=== PATIENT | female | born 1935 | race Caucasian/White ===

== ENCOUNTER 2023-07-02 08:57 | Inpatient (IN) | payer OTHER, SELFPAY ==
[2023-06-30] VITALS (9 sets, daily range): BP systolic 121–206; BP diastolic 80–95; BMI 17.5
[2023-06-30 14:33] LABS: % Basophils 0.5 % (0-2); % Eosinophils 1.2 % (0-6); % Immature Granulocytes 0.1 % (0-0.5); % Lymphocytes 27.9 % (20.5-51.1); % Monocytes 9.2 % (1.7-9.3); % Neutrophils 61.1 % (42.2-75.2); Absolute Eosinophils 0.1 10^3/uL (0-0.7); Absolute Monocytes 0.7 10^3/uL (0.1-0.6); Absolute Neutrophils 4.4 10^3/uL (1.4-6.5); Hematocrit 39.3 % (37.0-47.0); Mean Corp Hgb Conc. 35.6 g/dL (33.0-37.0); Mean Corpuscular Hgb 35.1 pg (27.0-31.0); Mean Corpuscular Volume 98.5 fL (81.0-99.0); Mean Platelet Volume 9.2 fL (7.4-10.4); Nucleated Red Blood Cells % 0 %; Platelet Count 217 10^3/uL (130-400); Red Blood Cell Count 3.99 10^6/uL (4.20-5.40); White Blood Cell Count 7.3 10^3/uL (4.8-10.8)
[2023-06-30 14:44] LABS: ALT (SGPT) 23 U/L (0-35); AST (SGOT) 32 U/L (14-36); Albumin 3.9 g/dl (3.5-5.0); Alkaline Phosphatase 118 U/L (38-126); Blood Urea Nitrogen 22 mg/dl (7-17); Calcium 9.3 mg/dl (8.4-10.2); Carbon Dioxide 21 mmol/L (22-30); Chloride 99 mmol/L (98-107); Glucose 116 mg/dl (70-99); Potassium 3.4 mmol/L (3.5-5.1); Sodium 133 mmol/L (135-145); Total Bilirubin 1.1 mg/dl (0.2-1.3); Total Protein 6.4 g/dl (6.3-8.2); eGFR 44.08
[2023-06-30 14:56] LABS: Troponin I < 0.012 ng/ml
--- NOTE | 2023-06-30 14:56 | ED.GENMED ---
History of Present Illness
General
Chief Complaint: Chest Problem
Source: patient
Exam Limitations: none
Time Seen by Provider: 06/30/23 14:32
Travel History
Have you had any contact with someone who has COVID-19?: No
Do you have any symptoms of coronavirus? Fever > 100 degrees, chills, cough, shortness of breath, sore throat, loss of taste or smell, muscle aches, or headache?: No
History of Present Illness
History of Present Illness:
87-year-old female presents complaining of burning in the chest starting yesterday. This is typically when she is eating. She denies actual vomiting. No fever. No shortness of breath. She denies any diaphoresis. No pain in between times of
eating. Pain does not radiate to the back or arms. She does have a history of esophageal obstruction but this feels different. She is on omeprazole for GERD. She has a history of atrial fibrillation but no longer on anticoagulant secondary to
bleeding.
Past History
Past History
ED Past Medical History: Arrthythmia (Atrial fib), Cancer (Basal cell), HTN, Hypercholesterolemia, NIDDM, [place], Other (Cardiomyopathy, abnormal LFTs, vent dependent respiratory failure, aspiration pneumonia, Sweet syndrome) and Other (Epistaxis,
thrombocytopenia, anemia)
ED Past Surgical History: Cardiac (Cardioversion 2010, JONES) and Other (Mohs surgery right face, bilateral cataract extractions)
Social History
Tobacco: Former smoker
Alcohol: Daily (wine 1 glass)
Personal:
Living: with family
Employment: Retired
Family History
Family History: Other (Reviewed and noncontributory)
Phy Exam
Physical Exam
Physical Exam:
General: Well-appearing female no acute respiratory distress HEENT: Normocephalic atraumatic neck is supple mucosa moist
Heart: Regular rate and rhythm no murmurs
Lungs: Clear no wheeze or rales
Abdomen is soft mild epigastric tenderness no guarding rebound normal bowel sounds
Extremities: No cyanosis or edema
skin: warm, no rashes
Course
Orders/Labs/Results
Orders:
Orders
06/30/23 14:03
EKG [Electrocardiogram (*1)] Urgent
Reason for Study: Chest Pain
EKG- Treatment ONCE
06/30/23 14:26
Complete Blood Count/With Diff Urgent
Comprehensive Metabolic Panel Urgent
Lipase Urgent
Comment: ADD ON
Troponin I Urgent
06/30/23 14:46
CR Chest - 2 Views Urgent
Comment:
Reason For Exam: chest pain
06/30/23 15:01
Add On- LAB Urgent
Tests Added?: lipase
06/30/23 16:18
HydrALAZINE [Apresoline] 5 mg IV NOW STA
Abnormal Lab Results
06/30/23
14:26
RBC 3.99 L 10^6/uL
(4.20-5.40)
MCH 35.1 H pg
(27.0-31.0)
Absolute Monos (auto) 0.7 H 10^3/uL
(0.1-0.6)
Sodium 133 L mmol/L
(135-145)
Potassium 3.4 L mmol/L
(3.5-5.1)
Carbon Dioxide 21 L mmol/L
(22-30)
BUN 22 H mg/dl
(7-17)
Creatinine 1.2 H mg/dL
(0.6-1.0)
Glucose 116 H mg/dl
(70-99)
06/30/23 14:26
06/30/23 14:26
Vital Signs
Initial and Last Documented VS:
Initial Vital Signs
Temp Pulse Resp BP Pulse Ox
98.2 F 77 16 163/90 98
06/30/23 14:00 06/30/23 14:00 06/30/23 14:00 06/30/23 14:00 06/30/23 14:00
Last Documented Vital Signs
Temp Pulse Resp BP Pulse Ox
98.2 F 77 16 176/93 98
06/30/23 14:00 06/30/23 17:00 06/30/23 17:00 06/30/23 17:00 06/30/23 16:45
MDM/Problems Addressed
Differential Diagnosis Includes:
Burning in chest and abdomen. Differential could include GERD, esophagitis vs obstruction. Will check EKG and troponin for ACS. Will check chest x-ray. Lipase pending to evaluate for pancreatitis
*Critical Care Note
Total Time (30-74mins, 75-104mins- exclusive of procedures): Not Applicable
Update Note
Update Note:
Cardiac workup negative chest x-ray negative. Patient was given chance to eat including applesauce brian crackers and water. Patient exhibits significant dysphagia. She belches frequently and has trouble getting even just water down. She is not
unable to tolerate her own secretions however. She is losing weight. She has lost 10 pounds in the last several months and has acute kidney injury. Discussed findings with GI. No need for urgent endoscopy tonight but will keep in hospital for
further evaluation with
ED Attending Note
-
Portions of this chart may have been created with voice recognition software.� Occasional wrong word or��sound alike� substitutions may have occurred due to the inherent limitations of voice recognition software.
Discharge Plan
Departure
Patient Disposition: Admit
Date of Disposition: 06/30/23
Time of Disposition: 17:51
Admit to: Med/Surg
Presentation/result/management discussed w/ accepting MD/DO: Hospitalist
Discharge Problem:
Dysphagia
Prescriptions:
No Action
losartan 50 MG tablet
50 mg PO DAILY
metoprolol succinate 50 MG tablet extended release 24 hr
50 mg PO BID
aspirin [Ecotrin Low Strength] 81 MG tablet,delayed release (DR/EC)
81 mg PO DAILY
multivitamin 1 EACH capsule
1 ea PO DAILY
cholecalciferol (vitamin D3) [Vitamin D3] 1,000 UNIT tablet
1,000 unit PO DAILY
dabigatran etexilate [Pradaxa] 150 MG capsule
150 mg PO BID
acetaminophen [Tylenol] 325 MG tablet
650 mg PO BID
prochlorperazine maleate 10 MG tablet
10 mg PO BID
amoxicillin 500 MG capsule
500 mg PO TID Qty: 15 0RF
acetaminophen-codeine 1 TABLET tablet
1 tab PO Q4HPRN PRN (Reason: Pain) Qty: 15 0RF
amlodipine 2.5 MG tablet
2.5 mg PO DAILY Qty: 20 1RF
famotidine 20 mg tablet
20 mg PO DAILY Qty: 14 0RF
Referrals:
Melissa Navarro PA-C [Family Provider] -
Interventions
Interventions:
*Risk Screen - Suicide Last Done: 06/30/23 14:00
*General Assessment Last Done: 06/30/23 14:00
*Neglect/Abuse Screening Last Done: 06/30/23 14:00
*ED COVID-19 Vaccine History Last Done: 06/30/23 14:27
ED- Cardiac Assessment Last Done: 06/30/23 14:27
ED- Pulmonary Assessment Last Done: 06/30/23 14:27
[2023-06-30 15:25] LABS: Lipase 170 U/L (23-300)
[2023-06-30] MEDS: APRESOLINE 5 MG IV (16:23)
--- NOTE | 2023-06-30 18:24 | HPS.HSE ---
Family Physician
-
Family Physician: Melissa Navarro
Chief Complaint
-
dysphagia
History of Present Illness
87-year-old female past medical history of atrial fibrillation not on anticoagulation, coronary artery disease, hypertension, hypercholesteremia, diabetes, basal cell carcinoma, aspiration pneumonia, GERD, food impaction, presenting with burning in
the chest yesterday along the esophagus after eating followed by an episode of vomiting and again later at dinner. She was able to swallow food and liquids but had pain during this. Pain was worse with liquids. She ate chicken wing on .
Patient states that she has been having ongoing acid reflux for the past year for which she takes omeprazole. Denies shortness of breath. She has chronic constipation and goes to bathroom 3 times a week. Her last bowel movement yesterday. She
has some vague fullness in the abdomen without any lashon pain.
She did not take her blood pressure medications this morning as her blood pressure was on the lower side.
Medical History
Past Medical History
Past Medical History: Reports Other (atrial fibrillation not on anticoagulation, coronary artery disease, hypertension, hypercholesteremia, diabetes, basal cell carcinoma, aspiration pneumonia, GERD, food impaction)
Past Surgical History: Reports Other ( Cardiac (Cardioversion 2010, JONES) and Other (Mohs surgery right face, bilateral cataract extractions))
Social History
Tobacco: Non-smoker
Alcohol: None
Drug: None
Family History
Family History: Not pertinent
Allergies / Home Medications
Allergies reflects when Allergies were last updated in [employer].
Home Medications with original date entered in [employer]
Allergy/Medication List:
Allergies
Allergy/AdvReac Type Severity Reaction Status Date / Time
levofloxacin [From Levaquin] Allergy Unknown Verified 06/30/23 14:00
Review of Systems
-
History Source: Patient
A 12 point ROS was completed and negative except as noted: Yes
Constitutional: Reports No Symptoms
EENT: Reports No Symptoms
Respiratory: Reports No Symptoms
Cardiac: Reports No Symptoms
Abdomen/GI: Reports No Symptoms
: Reports No Symptoms
Musculoskeletal: Reports No Symptoms
Skin: Reports No Symptoms
Neurological: Reports No Symptoms
Endocrine: Reports No Symptoms
Hematologic/Lymphatic: Reports No Symptoms
Psych: Reports No Symptoms
Physical Exam
Vital Signs
Vital Signs
Temp Pulse Resp BP Pulse Ox
98.2 F 77 16 176/93 98
06/30/23 14:00 06/30/23 17:00 06/30/23 17:00 06/30/23 17:00 06/30/23 16:45
Physical Exam
General: Well Developed, Well Nourished and No Apparent Distress
HEENT: NormoCephalic, Moist mucous membranes and Atraumatic
Respiratory: Clear
Cardiac: S1/S2 and Regular Rhythm; No Murmur or Rub
GI: Soft, Non Tender, Non Distended and Normal Bowel Sounds; No Organomegaly
Rectal: Deferred by Provider
Musculoskeletal: No Clubbing, No Cyanosis and No Edema
Skin: No Rash
Neuro: Nonfocal/grossly intact
Laboratory Results
-
06/30/23 14:26
06/30/23 14:26
Laboratory Results
Total Bilirubin 1.1 mg/dl (0.2-1.3) 06/30/23 14:26
AST 32 U/L (14-36) 06/30/23 14:26
ALT 23 U/L (0-35) 06/30/23 14:26
Alkaline Phosphatase 118 U/L (38-126) 06/30/23 14:26
Troponin I < 0.012 ng/ml 06/30/23 14:26
Lipase Cancelled 06/30/23 14:46
Data Reviewed
-
Lab Data: Labs Reviewed by me
Old Records: Reviewed
Impression/Plan
-
IMPRESSION:
PLAN:
# Dysphagia/epigastric discomfort concerning for recurrent esophageal food impaction
# History of GERD/food impaction
-N.p.o.
-Continue Protonix
-GI consulted
# Hypertensive urgency
-IV hydralazine given
-Continue hydralazine
# Acute kidney injury prerenal
-Gentle IV fluids
# Hypokalemia secondary to vomiting
- replete potassium
Paroxysmal atrial fibrillation
-Continue metoprolol
-Continue amiodarone
Coronary artery disease
-Continue aspirin
Hypercholesterolemia
-Continue statin
Type 2 diabetes
Basal cell carcinoma
History of aspiration pneumonia
Full code
DVT prophylaxis�SCDs
N.p.o.
--- NOTE | 2023-06-30 20:10 | PTCARENOTE ---
Received patient from ED via stretcher. Patient ambulated from stretcher to bed with minimal assistance. AAOx3, no current complaints of pain. Oriented patient to room and placed call doty within reach.
[2023-06-30] MEDS: NSS 1000 IV (20:18)
[2023-06-30] MEDS: APRESOLINE 5 MG PO (20:39)
[2023-06-30] MEDS: LIPITOR 10 MG PO (20:40)
[2023-06-30] MEDS: PACERONE 100 MG PO (20:41)
[2023-07-01 07:54] LABS: % Basophils 0.5 % (0-2); % Immature Granulocytes 0.2 % (0-0.5); % Lymphocytes 30.6 % (20.5-51.1); % Monocytes 11.9 % (1.7-9.3); % Neutrophils 53.8 % (42.2-75.2); Absolute Eosinophils 0.2 10^3/uL (0-0.7); Absolute Lymphocytes 1.8 10^3/uL (1.2-3.4); Absolute Monocytes 0.7 10^3/uL (0.1-0.6); Absolute Neutrophils 3.1 10^3/uL (1.4-6.5); Hematocrit 39.4 % (37.0-47.0); Hemoglobin 13.8 g/dL (12.0-16.0); Mean Corpuscular Hgb 34.9 pg (27.0-31.0); Mean Corpuscular Volume 99.7 fL (81.0-99.0); Mean Platelet Volume 9.1 fL (7.4-10.4); Nucleated Red Blood Cells % 0 %; Platelet Count 216 10^3/uL (130-400); Red Blood Cell Count 3.95 10^6/uL (4.20-5.40); Red Cell Dist. Width 11.7 % (11.5-14.5); White Blood Cell Count 5.7 10^3/uL (4.8-10.8)
[2023-07-01 07:55] VITALS: BP 177/98
--- NOTE | 2023-07-01 08:28 | CON.GI ---
Addendum entered and electronically signed by Rachel Landrum Do, MD 07/02/23 07:48:
I saw and examined the patient on 07/01 and this is delayed entry
The INSTRUMENTAL MUSICIAN's note was reviewed and I agree with the note.
Comment: She is an 87yo W with h/o HTN, CAD, afib and DM who was admitted for reflux and dysphagia to solids. She has had food impactions in the past. Her mother has similar issues. She does use omeprazole 20mg on baseline. She denies any
clear triggers. Exam VSS, tolerating secretions. NTTP, NABS. Labs reviewed
Impressions
- Solid food dysphagia with h/o esophageal impactions
Ddx includes tortuous esophagus, EoE or acid stricture
- Constipation
- DM
- HTN
- Afib
- HL
Recommendations
- C/w CLD
- NPO at [facility] for EGD with bx tomorrow 07/02
- Miralax daily
- PPI IV BID
Will follow with you
Original Note:
Consultation
-
Date/Time Consultation Requested: 06/30/23 @ 19:55
Date/Time Consultation Performed: 07/01/23 @ 08:15
Requesting Provider: Dr. Anderson
Performing Provider: BRADEN Dominguez; Dr. Rachel Chopra
Reason for Consultation: dysphagia, ?food impaction
Medical History
Chief Complaint / HPI
Chief Complaint: dysphagia
History of Present Illness:
The patient is an 87-year-old female with a past medical history significant for atrial fibrillation on anticoagulation, CAD, hypertension, hyperlipidemia, type 2 diabetes, GERD, dysphagia with history of food impaction, who presented to the
emergency room with complaints of odynophagia and worsening reflux, which we are being asked to evaluate her for. Upon review of prior records, the patient was seen in the hospital in 2020 and November 2022 with similar presentation. In November she
underwent EGD for food impaction which showed a large amount of food in the cricopharyngeus, in the upper third of the esophagus, middle third of the esophagus, and lower third of the esophagus which was removed. She was also noted to have a
significantly torturous esophagus. She was advised on a chopped and mechanical soft diet with outpatient GI follow-up, but she did not follow-up in the office. Today, the patient reports that she has had chronic problems with reflux. She notes
that she takes omeprazole 20 mg daily but of recent this has not been effective. She notes the last 3 days that she has had pain with swallowing despite use of her omeprazole. She notes that after a meal she will get immediate reflux and developed
significant burping. She denies any overt nausea or vomiting, but will have to regurgitate food at times. She denies any dysphagia, but does note she can feel the food going down. She notes after her endoscopy in November she did have some pain in
her esophagus with swallowing but this had resolved at that point in time. She reports that she does bring up mucus and small food particles at times as well after meals. She is unable to to identify certain triggers for the symptoms. She denies
any significant abdominal pain, weight loss, loss of appetite, fevers, chills, chest pain, or shortness of breath. She notes her last bowel movement was on Friday and does have chronic constipation going every 3 days or so. She does not use
laxatives regularly but was drinking a lot of prune juice which did help but this also worsened her reflux so she stopped drinking it. She reports taking Dulcolax tablet on Friday and Friday with good effect. She denies any melena or
hematochezia. She denies any recent use of antibiotics, steroids, NSAIDs, or alcohol. Family history significant for father had colon cancer and brother who had biliary cancer. She reports remote history of colonoscopy with history of polyps.
Prior EGDs as noted above. Routine labs on admission showed a sodium 133, potassium 3.4, BUN 22, creatinine 1.2, troponin negative x 1, lipase 170, hemoglobin 14.0, WBC 7.3, platelets 217,000, with normal LFTs. Chest x-ray showed no acute
findings. She was started on PPI, made n.p.o., admitted for further evaluation by GI.
Past Medical History
Past Medical History: Arrhythmias (Atrial fibrillation off anticoagulation, prior history of cardioversion), CAD, GERD, HTN, Hypercholesterolemia, NIDDM and Other (Dysphagia with history of food impaction, basal cell skin CA)
Past Surgical History: Other (Cataract surgery, Mohs procedure)
Social History
Tobacco: Former Smoker (Quit in her 40s)
Alcohol: None
Drug: None
Family History
Family History: Cancer (Father-colon cancer; brother-bile duct cancer)
Allergies / Home Medications
Allergy/AdvReac Type Severity Reaction Status Date / Time
levofloxacin [From Levaquin] Allergy Unknown Verified 06/30/23 14:00
Medication Instructions Recorded
acetaminophen 325 mg tablet 650 mg PO DAILYPRN PRN mild pain 06/30/23
(Tylenol)
amiodarone 100 mg tablet 100 mg PO DAILY@202906/30/23
aspirin 81 mg tablet,delayed 81 mg PO DAILY 06/30/23
release
atorvastatin 10 mg tablet 10 mg PO DAILY@202906/30/23
bisacodyl 5 mg tablet,delayed 10 mg PO HSPRN PRN constipation 06/30/23
release (Dulcolax (bisacodyl))
cholecalciferol (vitamin D3) 50 50 mcg PO DAILY 06/30/23
mcg (2,000 unit) tablet
hydralazine 10 mg tablet 5 mg PO DAILY@202906/30/23
hydralazine 10 mg tablet 5 mg PO DAILYPRN PRN blood pressure 06/30/23
omeprazole 20 mg capsule,delayed 20 mg PO QPM 06/30/23
release
Review of Systems
-
History Source: Patient
Constitutional: Reports No Symptoms
EENT: Reports No Symptoms
Respiratory: Reports No Symptoms
Cardiac: Reports No Symptoms
Abdomen/GI: Reports Constipated and Other (Odynophagia)
: Reports No Symptoms
Musculoskeletal: Reports No Symptoms
Skin: Reports No Symptoms
Neurological: Reports No Symptoms
Vital Signs
Temp Pulse Resp BP Pulse Ox
97.7 F 71 18 121/80 98
06/30/23 23:37 06/30/23 23:37 06/30/23 23:37 06/30/23 23:37 07/01/23 03:58
Physical Exam
Exam
General: Well Developed, Well Nourished, Comfortable and Other (Elderly appearing female in no significant distress)
HEENT: Normocephalic, Anicteric, Atraumatic and Other (No oral thrush)
Respiratory: Clear
Cardiac: S1/S2 and Regular Rhythm
Breast: Deferred by me
GI: Soft, Non Tender, Non Distended, Normal Bowel Sounds and Flat
Rectal: Deferred by Provider
Skin: Warm and Dry
Neuro: Awake, Alert and Oriented
Psych: Calm
Results
WBC 5.7 10^3/uL (4.8-10.8) 07/01/23 07:18
Hgb 13.8 g/dL (12.0-16.0) 07/01/23 07:18
Hct 39.4 % (37.0-47.0) 07/01/23 07:18
MCV 99.7 fL (81.0-99.0) H 07/01/23 07:18
Plt Count 216 10^3/uL (130-400) 07/01/23 07:18
Absolute Neuts (auto) 3.1 10^3/uL (1.4-6.5) 07/01/23 07:18
Sodium 133 mmol/L (135-145) L 06/30/23 14:26
Potassium 3.4 mmol/L (3.5-5.1) L 06/30/23 14:26
Chloride 99 mmol/L (98-107) 06/30/23 14:26
Carbon Dioxide 21 mmol/L (22-30) L 06/30/23 14:26
BUN 22 mg/dl (7-17) H 06/30/23 14:26
Creatinine 1.2 mg/dL (0.6-1.0) H 06/30/23 14:26
Calcium 9.3 mg/dl (8.4-10.2) 06/30/23 14:26
Total Bilirubin 1.1 mg/dl (0.2-1.3) 06/30/23 14:26
AST 32 U/L (14-36) 06/30/23 14:26
ALT 23 U/L (0-35) 06/30/23 14:26
Alkaline Phosphatase 118 U/L (38-126) 06/30/23 14:26
Lipase Cancelled 06/30/23 14:46
Diagnostic Image Results:
06/30/23 CXR: No acute findings.
Prior GI Procedures:
EGD: 11/10/2022 Dr. Stroud: Large amount of Food at the cricopharyngeus, in the upper third of the esophagus, in the middle third of the esophagus and in the lower third of the esophagus. Removal was successful. Tortuous esophagus. Normal stomach.
Normal examined duodenum.
04/21/2021 Dr. Mattson: Food in the esophagus. Removal was successful. Normal stomach. Normal examined duodenum.
09/06/2011 Dr. Gamez: Normal esophagus. Normal examined duodenum. Gastric mucosal abnormality in the antrum characterized by erythema. Likely secondary to ASA and corticosteroids
Colonoscopy: 04/01/2012 Dr. Carmona: Non-thrombosed external hemorrhoids. One 10 mm hyperplastic polyp in the sigmoid colon. Resected and retrieved. Diverticulosis in the sigmoid colon and in the descending colon. Internal hemorrhoids.
Assessment / Plan
-
The patient is an 87-year-old female with a past medical history significant for atrial fibrillation on anticoagulation, CAD, hypertension, hyperlipidemia, type 2 diabetes, GERD, dysphagia with history of food impaction, who presented to the
emergency room with complaints of odynophagia and worsening reflux, which we are being asked to evaluate her for. She has a history of prior food impaction requiring EGD in 2020 and 2022 but no biopsies done and no follow-up in the office. She has
chronic GERD on PPI but this has not been managing her symptoms. No overt dysphagia but now with odynophagia and intermittent regurgitation of food. No anemia. Currently she is tolerating her secretions and is in no distress.
Problem list:
-odynophagia, ?dysphagia with regurgitation of food
-chronic GERD
-hx food impaction
-hypokalemia, improved
-chronic constipation
Other pertinent medical hx:
-Afib off AC
-CAD
-HTN
-HLD
-DM2
Recommendations:
-Etiology of current symptoms consistent with likely passed food impaction, possibly secondary to esophagitis v Schatzki ring v tortuous esophagus v other.
-Currently tolerating her secretions and not in distress.
-Will need EGD for further evaluation. To review timing with Dr. Chopra, today v tomorrow.
-Keep NPO for now
-Start BID PPI
-Avoid NSAID's
-GERD diet
-Will start on MiraLax 1 capful daily with hx of constipation once taking PO, likely to be contributing to her worsening reflux as well
-Will follow
Data Reviewed
-
Old Records: Reviewed
-
-
Thank you for consultation and allowing me to participate in the patient's care. Please call the inspector outside steam distribution GI physician during the after hours with any questions or concerns.
[2023-07-01 08:30] LABS: ALT (SGPT) 24 U/L (0-35); AST (SGOT) 34 U/L (14-36); Albumin 3.5 g/dl (3.5-5.0); Alkaline Phosphatase 118 U/L (38-126); Blood Urea Nitrogen 12 mg/dl (7-17); Calcium 8.4 mg/dl (8.4-10.2); Carbon Dioxide 23 mmol/L (22-30); Chloride 105 mmol/L (98-107); Estimated Creatinine Clearance 32 ml/min; Glucose 85 mg/dl (70-99); Potassium 3.8 mmol/L (3.5-5.1); Sodium 134 mmol/L (135-145); Total Protein 5.7 g/dl (6.3-8.2); eGFR > 60.00
[2023-07-01] MEDS: APRESOLINE 5 MG PO (08:35)
[2023-07-01] MEDS: ASPIR LOW (ENTERIC COATED) 81 MG PO (08:37)
[2023-07-01] MEDS: VITAMIN D3 (cholecalciferol) 50 MCG PO (08:37)
[2023-07-01 10:13] VITALS: BP 179/77
--- NOTE | 2023-07-01 10:14 | W.PN.HOSP.TC ---
Today's Communication/Plan
-
Awaiting timetable for EGD
Continue PPI and n.p.o. status except meds
Placed on as needed hydralazine IV for hypertensive urgency
Would add dose of lisinopril
Assessment / Plan
Assessment / Plan
87-year-old female past medical history of atrial fibrillation not on anticoagulation, coronary artery disease, hypertension, hypercholesteremia, diabetes, basal cell carcinoma, aspiration pneumonia, GERD, food impaction, presenting with burning in
the chest yesterday along the esophagus after eating followed by an episode of vomiting and again later at dinner.� She was able to swallow food and liquids but had pain during this.� Pain was worse with liquids.� She ate chicken wing on .�
Patient states that she has been having ongoing acid reflux for the past year for which she takes omeprazole.� Denies shortness of breath.� She has chronic constipation and goes to bathroom 3 times a week.� Her last bowel movement yesterday.� She
has some vague fullness in the abdomen without any lashon pain.
# Dysphagia/odynophagia concerning for recurrent esophageal food impaction
# History of GERD/food impaction
-N.p.o.
-Continue Protonix
-GI consulted
# Hypertensive urgency
-IV hydralazine given
-Continue hydralazine/probably needs a second agent and up titration of hydralazine
# Acute kidney injury prerenal
-Gentle IV fluids
# Hypokalemia secondary to vomiting
- replete potassium
Paroxysmal atrial fibrillation
-Continue metoprolol
-Continue amiodarone
Coronary artery disease
-Continue aspirin
Hypercholesterolemia
-Continue statin
Type 2 diabetes
Basal cell carcinoma
History of aspiration pneumonia
Full code
DVT prophylaxis�SCDs
N.p.o.
Anticipated Discharge: 24 - 48 hours
Subjective/Interval History
-
Date of Service: July 01, 2023
States 'it hurts to swallow especially solids but is not pain' little different this time than prior episodes. Her last EGD was in November. No events overnight BP has been elevated.
Objective Data
-
Labs:
Laboratory Results
07/01/23
07:18
WBC 5.7
Hgb 13.8
Hct 39.4
Plt Count 216
Sodium 134 L
Potassium 3.8
Chloride 105
Carbon Dioxide 23
BUN 12
Creatinine 0.9
Glucose 85
Calcium 8.4
Total Bilirubin 1.0
AST 34
ALT 24
Alkaline Phosphatase 118
Vital Signs:
Vital Signs
Temp Pulse Resp BP Pulse Ox
98.3 F 68 16 179/77 96
07/01/23 07:55 07/01/23 07:55 07/01/23 07:55 07/01/23 10:13 07/01/23 07:55
Review of Systems
-
History Source: Patient
Constitutional: Reports Weight Loss (Approximately 15 pound weight loss in last 6-month) and Fatigue
Physical Exam
-
General: Well Developed
HEENT: Normocephalic
Respiratory: Clear to Auscultation
Cardiac: Regular Rhythm
GI: Soft
Musculoskeletal: Edema, Right Lower Extrem and Edema, Left Lower Extrem
Psych: Calm
Data Reviewed
-
Total Time Spent with Patient (in minutes): 45
Labs: Labs Reviewed by me (Hemoglobin 13.8 /MCV 99.7)
[2023-07-01 11:22] VITALS: BP 156/95
[2023-07-01] MEDS: NSS 1000 IV (11:36)
[2023-07-01 12:41] LABS: Vitamin B12 656 pg/ml (239-931)
[2023-07-01 15:30] VITALS: BP 160/90
[2023-07-01 17:00] VITALS: BMI 17.5
[2023-07-01] MEDS: LIPITOR 10 MG PO (20:09)
[2023-07-01] MEDS: PACERONE 100 MG PO (20:09)
[2023-07-01] MEDS: PROTONIX 40 MG PO (20:09)
[2023-07-01] MEDS: APRESOLINE 10 MG PO (20:10)
[2023-07-01 23:39] VITALS: BP 157/76
--- NOTE | 2023-07-02 04:29 | DOWNTIME ---
There was a [employer] Downtime on 07/02/2023 from 0111 to 07/02/2023 at 0405. Downtime documentation of patient's care, including medication administrations, has been reconciled in the electronic record per guidelines. Refer to the
patient's paper chart under the miscellaneous tab to see printed paper medication records and downtime forms.
[2023-07-02] MEDS: NSS 1000 IV (04:51)
[2023-07-02 07:00] VITALS: BP 165/99
[2023-07-02] MEDS: ASPIR LOW (ENTERIC COATED) 81 MG PO (09:13)
[2023-07-02] MEDS: PROTONIX 40 MG PO (09:13)
[2023-07-02] MEDS: VITAMIN D3 (cholecalciferol) 50 MCG PO (09:13)
--- NOTE | 2023-07-02 09:56 | W.PN.HOSP.TC ---
Addendum entered and electronically signed by John Oviedo MD 07/03/23 10:50:
Meets [place] criteria for mild protein calorie malnutrition
Original Note:
Today's Communication/Plan
-
For EGD this morning
Add amlodipine for continued hypertensive urgency
Continue hydralazine as needed
Already increased hydralazine maintenance dosing to 10 mg
Assessment / Plan
Assessment / Plan
87-year-old female past medical history of atrial fibrillation not on anticoagulation, coronary artery disease, hypertension, hypercholesteremia, diabetes, basal cell carcinoma, aspiration pneumonia, GERD, food impaction, presenting with burning in
the chest yesterday along the esophagus after eating followed by an episode of vomiting and again later at dinner.� She was able to swallow food and liquids but had pain during this.� Pain was worse with liquids.� She ate chicken wing on .�
Patient states that she has been having ongoing acid reflux for the past year for which she takes omeprazole.� Denies shortness of breath.� She has chronic constipation and goes to bathroom 3 times a week.� Her last bowel movement yesterday.� She
has some vague fullness in the abdomen without any lashon pain.
# Dysphagia/odynophagia concerning for recurrent esophageal food impaction
# History of GERD/food impaction
-N.p.o.
-Continue Protonix
-GI consulted
# Hypertensive urgency
-IV hydralazine given
-Continue hydralazine/probably needs a second agent and up titration of hydralazine
-2D echocardiogram results reviewed showing normal ventricular size and systolic function without valvular apnea malady and a 60 to 65% EF
-Will add amlodipine
# Acute kidney injury prerenal
-Gentle IV fluids
# Hypokalemia secondary to vomiting
- replete potassium
Paroxysmal atrial fibrillation
-Continue metoprolol
-Continue amiodarone
Coronary artery disease
-Continue aspirin
Hypercholesterolemia
-Continue statin
Type 2 diabetes
Basal cell carcinoma
History of aspiration pneumonia
Full code
DVT prophylaxis�SCDs
N.p.o.
Anticipated Discharge: Within 24 hours
Subjective/Interval History
-
Date of Service: July 02, 2023
Unclear whether moved bowels
No issues overnight n.p.o. after midnight
Objective Data
-
Vital Signs:
Vital Signs
Temp Pulse Resp BP Pulse Ox
98.4 F 73 18 165/99 97
07/02/23 07:00 07/02/23 07:00 07/02/23 07:00 07/02/23 07:00 07/02/23 07:00
I&O
07/01/23 07/02/23 07/03/23
06:59 06:59 06:59
Intake Total 700 / 700
Balance 700 / 700
Review of Systems
-
All other systems: Not reviewed unless documented
Physical Exam
-
General: Well Developed
HEENT: Normocephalic
Cardiac: Regular Rhythm
GI: Soft, Nontender and Nondistended
Neuro: Awake, Alert and Oriented
Psych: Calm
Data Reviewed
-
Total Time Spent with Patient (in minutes): 45
Labs: Labs Reviewed by me (Labs stable)
--- NOTE | 2023-07-02 10:02 | CM ---
Addendum entered by Paige Cuba 07/02/23 16:22:
Pt has been cleared medically for d/c and has no needs
CM received a TT from indicating that the patient had a LOC change from obs to inpatient effective 11:23a.m.
IMM was reviewed and copy provided
Patient's son is at bedside to transport patient home at time of d/c
PLAN; d/c home no needs
Original Note:
CM following re: d/c planning
Chart reviewed
CM met with the patient at bedside; IA completed
Pt is here as observation, THAYER letter reviewed and copy provided
Pt states she and her son reside in a [place] with no [facility]
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
Pt has past home care hx with [facility], has been to [facility] for rehab, & has a spc & r/w for use if needed
Pt confirms prescription coverage and rx's are filled at [facility] on [facility]
Pt PCP- [facility] and the patient sees Melissa Navarro PA-C
Pt is functionally independent and has no needs
CM will continue to monitor patient progress and assist with any needs at d/c as applicable
PLAN; d/c home no needs anticipated
[2023-07-02 10:15] VITALS: BP 133/65; BP_SYST 16
[2023-07-02 10:30] VITALS: BP 162/70; BP_SYST 20
[2023-07-02 10:45] VITALS: BP 159/71; BP_SYST 18
[2023-07-02] MEDS: NORVASC 5 MG PO (11:18)
[2023-07-02 11:21] VITALS: BP 165/88
--- NOTE | 2023-07-02 13:18 | W.DCSUMMARY ---
Discharge Summary
Discharge Data
Date of Admission: 07/02/23
Date of Discharge: 07/02/23
Total time spent discharging patient (in min): 39
-
Pending Results: No
Hospital Course
87-year-old female with history of hypertension coronary artery disease A-fib and diabetes mellitus admitted with reflux and dysphagia to solids
He is not on anticoagulation but has had prior aspiration pneumonia and food impactions. She presented with burning in her chest along the midline of her esophagus and after eating followed by an episode of vomiting again later after a dinner meal.
She has been able to swallow liquids but does poorly with solids also presented with a constipation and chronic history of same/she also presented with some hypertensive urgency requiring adjustment in dosing of her hydralazine and as needed IV
hydralazine given with parameters.
She was admitted to observation status and initially placed on clear liquids in anticipation of probable EGD based on timetable of the gastroenterology service was consulted she was made n.p.o. the following day and underwent an EGD noting the
examined esophagus to be moderately tortuous. Biopsies were taken with cold cold forceps. There is mild erythema of the mucosa found in the gastric antrum there is a benign-appearing but intrinsic severe stenosis of the esophagus with pill stuck
in it. Stenosis was traversed and she underwent dilatation a 4 cm hiatal hernia was also noted. Exam of the stomach was otherwise normal as was the duodenum. Per instructions of the GI service she was placed on a pur�ed diet and sent back to the
floor and if tolerated can be discharged later in the day. It is felt that the patient should increase her PPI to twice daily dosing and follow-up with GI in 2 weeks as long as tolerates a pur�ed diet in addition we have added amlodipine 5 mg p.o.
daily for hypertensive management along with her prior dosing of hydralazine and this was called into her pharmacy.
Discharge Plan
-
Patient Disposition: Home (Routine Discharge)
Discharge Diagnosis/Procedures: Food impaction
Esophageal stenosis
Status post EGD and dilatation of stenosis
Uncontrolled essential hypertension
Diet: Regular
Additional Diets: IDDSI -4/pur�ed
Activity: As tolerated
Additional Activity: Avoid constipation stay well-hydrated
Driving Restrictions: As prior to admission
Referrals:
Rachel Chopra MD [Active] - (07/22 at 1130am with Dyana [facility] [employer] [facility] for esophageal stricture and GERD)
Melissa Navarro PA-C [Family Provider] - in less than 1 week (Underwent esophageal dilatation for recurrent esophageal stenosis/ and food impactio check blood pressure in 1 to 2 weeks started on amlodipine and increase hydralazine)
Prescriptions:
New
amlodipine 5 mg Tablet
5 mg PO DAILY Qty: 30 0RF
Continued
hydralazine 10 mg Tablet
5 mg PO DAILY@2029
hydralazine 10 mg Tablet
5 mg PO DAILYPRN PRN (Reason: blood pressure)
Patient Comments:
06/30/2023, pt. states that she takes her morning dose as needed.
acetaminophen [Tylenol] 325 mg Tablet
650 mg PO DAILYPRN PRN (Reason: mild pain)
atorvastatin 10 mg Tablet
10 mg PO DAILY@2029
aspirin 81 mg Tablet,Delayed Release (Dr/Ec)
81 mg PO DAILY
bisacodyl [Dulcolax (bisacodyl)] 5 mg Tablet,Delayed Release (Dr/Ec)
10 mg PO HSPRN PRN (Reason: constipation)
amiodarone 100 mg Tablet
100 mg PO DAILY@2029
cholecalciferol (vitamin D3) 50 mcg (2,000 unit) Tablet
50 mcg PO DAILY
omeprazole 20 mg Capsule,Delayed Release(Dr/Ec)
20 mg PO QPM Qty: 0 0RF
Patient Comments:
06/30/2023, pt. states that she took a tablet this morning; however, she normally takes it QPM. Per pt. she reached out to her PCP to try and start taking BID but has not started doing this yet.
Rx Instructions:
Increased dose of omeprazole to twice a day
Discharge Orders:
Discharge Patient (As Directed); Ordered 07/02/23
Ordered By: John Oviedo
--- NOTE | 2023-07-02 13:25 | W.DS.TRANS ---
DC Summary - Assignment Editor
-
Discharge Instructions:
Sleep Apnea Risk Low
Discharge Diagnosis/Procedures Food impaction
Esophageal stenosis
Status post EGD and dilatation of stenosis
Uncontrolled essential hypertension
Diet Regular
Additional Diets IDDSI -4/pur�ed
Activity As tolerated
Additional Activity Avoid constipation stay well-hydrated
Driving Restrictions As prior to admission
Instructions:
Stand-Alone Forms:
Changes to Home Medications: No
Discharge Medications:
DC Medications w/original date entered in [facility] [employer])
acetaminophen 325 mg tablet (Tylenol) 650 mg PO DAILYPRN PRN mild pain 06/30/23
amiodarone 100 mg tablet 100 mg PO DAILY@2029 Arrhythmia 06/30/23
aspirin 81 mg tablet,delayed release 81 mg PO DAILY Blood Clot Prevention/Tx 06/30/23
atorvastatin 10 mg tablet 10 mg PO DAILY@2029 High Cholesterol 06/30/23
bisacodyl 5 mg tablet,delayed release (Dulcolax (bisacodyl)) 10 mg PO HSPRN PRN constipation 06/30/23
cholecalciferol (vitamin D3) 50 mcg (2,000 unit) tablet 50 mcg PO DAILY Supplement 06/30/23
hydralazine 10 mg tablet 5 mg PO DAILY@2029 Blood Pressure 06/30/23
hydralazine 10 mg tablet 5 mg PO DAILYPRN PRN blood pressure 06/30/23
amlodipine 5 mg tablet 5 mg PO DAILY #30 tabs 07/02/23
omeprazole 20 mg capsule,delayed release 20 mg PO QPM Gastrointestinal Issue #0 caps 07/02/23
Home Medication Changes
amlodipine 5 mg tablet 5 mg PO DAILY #30 tabs 07/02/23
omeprazole 20 mg capsule,delayed release 20 mg PO BIDGastrointestinal Issue #0 caps 07/02/23 /this should be now taken twice a day
Pending Results: No
Total time spent discharging patient (in min): 38
[2023-07-02 15:00] VITALS: BP 134/85
--- NOTE | 2023-07-03 09:57 | PN.CDI ---
CDI
- -
CDI:
Physician Documentation Request
Admit Date: 07/02/23 08:57
Dear Doctor Preet,
Please review the following and provide your response in the progress notes.
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
#CBW 99lbs (BMI 17.5-underweight) 06/30.
#As per current clinical data pt indicated wt loss of 2-13lbs and note eating poorly.
#...Note though pt reports difficulty swallowing items with regurgitation
#...per Gi and hospitalist notes.
#Pt informed RD that she has lost 7lbs from february to now.
#This reflects a wt change of 6.6% in approximately 4 months.
#Pt was observed with some temporal depression, hollow orbital and some clavicle protrusion.
#Pt meets [place] and [place] criteria for mild protein calorie malnutrition of acute illness.
Based on the above and your clinical assessment, please provide in the progress note specificity of the malnutrition:
Mild protein calorie malnutrition of acute illness
Other (please specify)
[place] Criteria ([employer] Hospitalist 2017)
2 or more criteria must be present for either
non severe or severe malnutrition
Note that the criteria differs related to the
presence of an acute or chronic illness
Acute Illness
Energy Intake Non Severe: <75% for >7 days
Severe: <50% for >5 days
Weight Loss Non Severe: 1-2% over 1 week
5% over 1 month
7.5% over 3 months
1 year N/A
Severe: >2% over 1 week
>5% over 1 month
>7.5% over 3 months
1 year N/A
Body Fat Non Severe: Mild Decrease
Severe: Moderate Decrease
Muscle Mass Non Severe: Mild Decrease
Severe: Moderate Decrease
Use of terms such as suspected, likely, concern for, or probable (associated with a specific diagnosis that is being evaluated, monitored, or treated as if it exists) are acceptable and can be coded in the inpatient setting, when documented at the
time of discharge.
Thank you,
Heike Domínguez RN BSN CCDS
CDI Specialist
please contact via tiger text
Please use your independent medical judgment in providing your response.
== END 2023-07-02 17:14 | disposition home or self-care (01) | DRG 392 ==
LOC: 4 EAST ACU 08:57
PROVIDERS: Emergency Medicine; ADMITTING PHYSICIAN Hospitalist; ATTENDING PHYSICIAN Internal Medicine; CONSULT PHYSICIAN Internal Medicine Gastroenterology; EMERGENCY PHYSICIAN Emergency Medicine; FAMILY PHYSICIAN Physician Assistant Medical
PROC: 0DB78ZX Excision of Stomach, Pylorus, Via Natural or Artificial Opening Endoscopic, Diagnostic (ICD-10-PCS; 2023-07-02)
PROC: 0DB58ZX Excision of Esophagus, Via Natural or Artificial Opening Endoscopic, Diagnostic (ICD-10-PCS; 2023-07-02)
PROC: 0DC38ZZ Extirpation of Matter from Lower Esophagus, Via Natural or Artificial Opening Endoscopic (ICD-10-PCS; 2023-07-02)
PROC: 0D738DZ Dilation of Lower Esophagus with Intraluminal Device, Via Natural or Artificial Opening Endoscopic (ICD-10-PCS; 2023-07-02)
DX: K22.2 Esophageal obstruction (principal); I42.8 Other cardiomyopathies; E44.1 Mild protein-calorie malnutrition; Z68.1 Body mass index [BMI] 19.9 or less, adult; N17.9 Acute kidney failure, unspecified; Q39.9 Congenital malformation of esophagus, unspecified; K21.9 Gastro-esophageal reflux disease without esophagitis; I48.0 Paroxysmal atrial fibrillation; E11.9 Type 2 diabetes mellitus without complications; E78.00 Pure hypercholesterolemia, unspecified; I10 Essential (primary) hypertension; R13.19 Other dysphagia; R63.4 Abnormal weight loss; I25.10 Atherosclerotic heart disease of native coronary artery without angina pectoris; K44.9 Diaphragmatic hernia without obstruction or gangrene; K31.89 Other diseases of stomach and duodenum; K59.09 Other constipation; I16.0 Hypertensive urgency; E87.6 Hypokalemia; Z87.891 Personal history of nicotine dependence; Z85.828 Personal history of other malignant neoplasm of skin; Z79.82 Long term (current) use of aspirin; Z88.1 Allergy status to other antibiotic agents; Z87.01 Personal history of pneumonia (recurrent); Z80.0 Family history of malignant neoplasm of digestive organs; Z86.010 Personal history of colon polyps
CPT/HCPCS: 88305; 88312; 71046; 80053; 82607; 83690; 84484; 85025; 88342; 93005; 96374; 99285; C1726

== ENCOUNTER → 2023-08-04 10:54 | Outpatient (REF) | payer OTHER, SELFPAY | LOC: DHCBC/DCA 10:54 | PROVIDERS: ATTENDING PHYSICIAN Internal Medicine Cardiovascular Disease; FAMILY PHYSICIAN Physician Assistant Medical | DX: I44.7 Left bundle-branch block, unspecified (principal); R06.09 Other forms of dyspnea | CPT/HCPCS: 78452; 93017; A9500; J2785 ==

== ENCOUNTER 2024-05-02 12:25 | Inpatient (IN) | payer OTHER, SELFPAY ==
[2024-04-30] VITALS (27 sets, daily range): BP systolic 84–227; BP diastolic 46–125; PULSE 76–81; BMI 18.6; BMI 16.9
[2024-04-30 11:06] LABS: % Basophils 0.5 % (0-2); % Eosinophils 1.7 % (0-6); % Immature Granulocytes 0.2 % (0-0.5); % Lymphocytes 27.5 % (20.5-51.1); % Monocytes 8.7 % (1.7-9.3); % Neutrophils 61.4 % (42.2-75.2); Absolute Eosinophils 0.1 10^3/uL (0-0.7); Absolute Lymphocytes 1.8 10^3/uL (1.2-3.4); Absolute Monocytes 0.6 10^3/uL (0.1-0.6); Hematocrit 41.7 % (37.0-47.0); Hemoglobin 14.8 g/dL (12.0-16.0); Mean Corp Hgb Conc. 35.5 g/dL (33.0-37.0); Mean Corpuscular Hgb 34.9 pg (27.0-31.0); Mean Corpuscular Volume 98.3 fL (81.0-99.0); Mean Platelet Volume 8.8 fL (7.4-10.4); Nucleated Red Blood Cells % 0 %; Platelet Count 258 10^3/uL (130-400); Red Blood Cell Count 4.24 10^6/uL (4.20-5.40); Red Cell Dist. Width 12.9 % (11.5-14.5); White Blood Cell Count 6.4 10^3/uL (4.8-10.8)
[2024-04-30 11:37] LABS: Blood Urea Nitrogen 16 mg/dl (7-17); Calcium 9.4 mg/dl (8.4-10.2); Carbon Dioxide 26 mmol/L (22-30); Chloride 98 mmol/L (98-107); Estimated Creatinine Clearance 41 ml/min; Glucose 99 mg/dl (70-99); Potassium 4.4 mmol/L (3.5-5.1); Sodium 134 mmol/L (135-145); eGFR > 60.00
--- NOTE | 2024-04-30 13:46 | ED.GENMED ---
History of Present Illness
<Hang Deras PA-C - Last Filed: 05/02/24 12:59>
General
Chief Complaint: Back Pain
Time Seen by Provider: 04/30/24 10:02
History of Present Illness
History of Present Illness:
88-year-old female with history of A-fib, hypertension, and hyperlipidemia presents to the emergency department for evaluation of left scapular back pain for the past several weeks that is acutely worse as of this morning. Radiates toward the left
chest. No associated fevers or chills. Mildly pleuritic. History of thoracic spine compression fractures. No nausea or vomiting.
Past History
<Hang Deras PA-C - Last Filed: 05/02/24 12:59>
Past History
ED Past Medical History: Arrthythmia (Atrial fib), Cancer (Basal cell), HTN, Hypercholesterolemia, NIDDM, [place], Other (Cardiomyopathy, abnormal LFTs, vent dependent respiratory failure, aspiration pneumonia, Sweet syndrome) and Other (Epistaxis,
thrombocytopenia, anemia)
ED Past Surgical History: Cardiac (Cardioversion 2010, JONES) and Other (Mohs surgery right face, bilateral cataract extractions)
Social History
Tobacco: Former smoker
Alcohol: Daily (wine 1 glass)
Personal:
Living: with family
Employment: Retired
Family History
Family History: Other (Reviewed and noncontributory)
Review of Systems
<Hang Deras PA-C - Last Filed: 05/02/24 12:59>
Review of Systems
Allergies reviewed?: Yes
All Other Systems: ROS reviewed and negative except as documented in HPI and ROS
Phy Exam
<Hang Deras PA-C - Last Filed: 05/02/24 12:59>
Physical Exam
Physical Exam:
GEN: Well appearing, NAD, WDWN
Eyes: PERRLA, EOMs intact, no scleral icterus
HENT: NCAT, oral mucosa moist
Lungs: CTAB, no wheezes, rales, rhonchi, normal chest wall excursion
Cardiac: RRR, no M/R/G, no peripheral edema. Radial pulses 2+ bilat
Abdomen: S, NT, ND, NABS, no masses or hepatosplenomegaly
Neuro: AO x 3, no focal deficits to BUE/BLE, normal sensation throughout
MSK: No gross deformity or ecchymosis. No palpable tenderness to the cervical or thoracic spine
Skin: No rashes, petechiae. Normal color, no pallor or jaundice.
Psych: Calm, cooperative, proper hygiene
Course
<Hang Deras PA-C - Last Filed: 05/02/24 12:59>
Orders/Labs/Results
Orders:
Orders
04/30/24
DIETARY CONSULT Routine
Reason for Consult: poor appetite
04/30/24 10:04
ECG [Electrocardiogram (*1)] Urgent
Reason for Study: Other
Other Reason for Exam: back pain
EKG- Treatment ONCE
04/30/24 10:30
CT Chest Angio W/wo Iv Contras Urgent
Comment:
Reason For Exam: back/chest pain, pleuritic pain
04/30/24 10:45
Basic Metabolic Panel Urgent
Complete Blood Count/With Diff Urgent
04/30/24 12:53
Morphine Sulfate 2 mg IV NOW STA
04/30/24 13:32
HydrALAZINE [Apresoline] 5 mg IV NOW STA
Ketorolac [Toradol] 15 mg IV NOW STA
04/30/24 14:25
0.9% Sodium Chloride 500 ml [Nss] 500 ml IV BOLUS
04/30/24 Dinner
IDDSI 6 - Soft & Bite Sized
At Your Request: Full Participation
04/30/24 19:55
Admit/Transfer Patient As Directed
Co-Sign Provider:
Level of Care: Observation services
Assign to:: Telemetry
Physician / Group: hospitalist
Diagnosis: orthostatic hypotension
Reason for Telemetry: Chest Pain syndromes
Date to Stop Telemetry: 05/02/24
Time to Stop Telemetry: 11:00
PRN Pain Medication Management As Directed
May give lesser potent ordered pain med per pt: Yes
preference::
Protocol:: Medication orders for pain may be administered in a
manner that supports deferring to patient preference
when the pt is:
- Requesting an ordered lesser potent pain medication.
Least to most potent pain medications are defined
as: acetaminophen < NSAID < tramadol < opioids
(morphine, oxycodone, hydromorphone).
- Requesting a lesser dose of the same medication IF
ORDERED.
- Requesting a less intrusive route of administration
if both routes are prescribed by the provider (PO <
IV).
04/30/24 19:58
Code Status As Directed
Resuscitation Status: Full Code
04/30/24 22:00
Flush (0.9% Sodium Chloride) [Flush (Nss)] See Dose Instructions IV PER PROTOCOL
04/30/24 22:42
Acetaminophen [Tylenol] 650 mg PO Q4HPRN PRN
Amiodarone [Pacerone] 100 mg PO HS
Atorvastatin [Lipitor] 10 mg PO HS
Bisacodyl [Dulcolax] 10 mg RECTAL [id number] PRN
Heparin 5,000 units SC Q12
HydrALAZINE [Apresoline] 5 mg PO HSPRN PRN
Ketorolac [Toradol] 10 mg IV Q8HPRN PRN
Polyethylene Glycol Powder [Miralax] 8.5 grams PO HS
04/30/24 22:42
Activity As Directed
Activity Level: With Assistance
Orthostatic Vital Signs As Directed
Orthostatic VS Frequency: BID
Comment: include now
Vital Signs As Directed
Frequency: Per unit guidelines
DX Deep Vein Thrombosis Video Routine
04/30/24 22:54
Pt Screening Request from Sharan Routine
04/30/24 22:58
Speech Screening from Sharan Routine
04/30/24 23:00
Pantoprazole [Protonix] 40 mg PO BID
05/01/24
DIETARY CONSULT Routine
Reason for Consult: soft diet
05/01/24 Breakfast
IDDSI 6 - Soft & Bite Sized
At Your Request: Full Participation
05/01/24 08:00
Aspirin Low Dose EC [Aspir Low (Enteric Coated)] 81 mg PO DAILY
HydrALAZINE [Apresoline] 5 mg PO DAILY
05/01/24 13:57
Mag Hydrox/Al Hydrox/Simeth [Maalox] 30 ml PO QIDPRN PRN
Teds [Anti-embolism (TAMIKA) Hose] As Directed
Type: Knee high
05/01/24 13:58
Ot Eval And Treat Routine
Pt Eval And Treat Routine
Activity Level: As Tolerated
05/01/24 16:00
Acetaminophen [Tylenol] 1,000 mg PO TID
05/02/24 07:01
Basic Metabolic Panel IN AM
Complete Blood Count/With Diff IN AM
05/02/24 08:00
Celecoxib [Celebrex] 200 mg PO DAILY
05/02/24 08:53
Bladder Scan As Directed
Follow Bladder Retention/Intermittent Cath Algorithm?: Yes
PRN if no void in __ hours: 6
Frequency: Per Retention Algorithm
If Bladder Scan Result >: 400
then:: Straight cath
Straight Cath As Directed
Frequency: Per Retention Algorithm
Additional Instructions: straight cath as needed per acute urinary retention algorithm for 24 hrs
Additional Instructions: for bladder scan greater than 400 mL
05/02/24 09:00
0.9% Sodium Chloride 1000 ml [Nss] 1,000 ml IV 70 mls/hr
05/02/24 10:08
Body Fluid for Eosinophils Urgent
Date Specimen was Collected: 05/02/24
Time Specimen was Collected: 10:03
Comment: ADD ON
UA Reflex to Culture [Urinalysis Reflex To Culture] Urgent
Date Specimen was Collected: 05/02/24
Time Specimen was Collected: 10:03
Urine Creatinine Urgent
Date Specimen was Collected: 05/02/24
Time Specimen was Collected: 10:03
Urine Microscopic Reflex Cult Urgent
Urine Sodium Urgent
Date Specimen was Collected: 05/02/24
Time Specimen was Collected: 10:03
Urine Culture Urgent
ESME Source: U
Specimen Description:
Date Specimen was Collected: 05/02/24
Time Specimen was Collected: 10:03
05/02/24 11:00
DC Protocol for Telemetry ONCE
05/02/24 12:07
Add On- LAB Stat
Tests Added?: urine eosinophils (Body Fluid for Eosinophils) Urgent
05/03/24 06:00
Basic Metabolic Panel IN AM
Complete Blood Count/With Diff IN AM
Cortisol, Random IN AM
TSH Reflex To Free T4 IN AM
Abnormal Lab Results
04/30/24 05/02/24 05/02/24
10:45 07:01 10:08
RBC 3.86 L 10^6/uL
(4.20-5.40)
MCH 34.9 H pg 35.0 H pg
(27.0-31.0) (27.0-31.0)
Absolute Monos (auto) 0.9 H 10^3/uL
(0.1-0.6)
Monocytes % 13.3 H %
(1.7-9.3)
Sodium 134 L mmol/L 131 L mmol/L
(135-145) (135-145)
BUN 45 H mg/dl
(7-17)
Creatinine 1.8 H mg/dL
(0.6-1.0)
Urine Ketones Trace A
(Negative)
Ur Occult Blood Reflex 1+ A
(Negative)
Urine RBC 3-6 A /HPF
(0-2)
Urine WBC (Reflex) 11-15 A /HPF
(0-5)
Urine Bacteria (Reflex) Few A
(Negative)
05/02/24 07:01
05/02/24 07:01
Vital Signs
Initial and Last Documented VS:
Initial Vital Signs
Temp Pulse Resp BP Pulse Ox
98.2 F 81 18 227/113 97
04/30/24 10:08 04/30/24 10:08 04/30/24 10:08 04/30/24 10:08 04/30/24 10:08
Last Documented Vital Signs
Temp Pulse Resp BP Pulse Ox
97.9 F 71 18 123/73 97
05/02/24 11:18 05/02/24 11:18 05/02/24 11:18 05/02/24 11:18 05/02/24 11:18
<Josesito Griffin PA-C - Last Filed: 04/30/24 19:24>
Orders/Labs/Results
Orders:
Orders
04/30/24
DIETARY CONSULT Routine
Reason for Consult: poor appetite
04/30/24 10:04
ECG [Electrocardiogram (*1)] Urgent
Reason for Study: Other
Other Reason for Exam: back pain
EKG- Treatment ONCE
04/30/24 10:30
CT Chest Angio W/wo Iv Contras Urgent
Comment:
Reason For Exam: back/chest pain, pleuritic pain
04/30/24 10:45
Basic Metabolic Panel Urgent
Complete Blood Count/With Diff Urgent
04/30/24 12:53
Morphine Sulfate 2 mg IV NOW STA
04/30/24 13:32
HydrALAZINE [Apresoline] 5 mg IV NOW STA
Ketorolac [Toradol] 15 mg IV NOW STA
04/30/24 14:25
0.9% Sodium Chloride 500 ml [Nss] 500 ml IV BOLUS
04/30/24 Dinner
IDDSI 6 - Soft & Bite Sized
At Your Request: Full Participation
04/30/24 19:55
Admit/Transfer Patient As Directed
Co-Sign Provider:
Level of Care: Observation services
Assign to:: Telemetry
Physician / Group: hospitalist
Diagnosis: orthostatic hypotension
Reason for Telemetry: Chest Pain syndromes
Date to Stop Telemetry: 05/02/24
Time to Stop Telemetry: 11:00
PRN Pain Medication Management As Directed
May give lesser potent ordered pain med per pt: Yes
preference::
Protocol:: Medication orders for pain may be administered in a
manner that supports deferring to patient preference
when the pt is:
- Requesting an ordered lesser potent pain medication.
Least to most potent pain medications are defined
as: acetaminophen < NSAID < tramadol < opioids
(morphine, oxycodone, hydromorphone).
- Requesting a lesser dose of the same medication IF
ORDERED.
- Requesting a less intrusive route of administration
if both routes are prescribed by the provider (PO <
IV).
04/30/24 19:58
Code Status As Directed
Resuscitation Status: Full Code
04/30/24 22:00
Flush (0.9% Sodium Chloride) [Flush (Nss)] See Dose Instructions IV PER PROTOCOL
04/30/24 22:42
Acetaminophen [Tylenol] 650 mg PO Q4HPRN PRN
Amiodarone [Pacerone] 100 mg PO HS
Atorvastatin [Lipitor] 10 mg PO HS
Bisacodyl [Dulcolax] 10 mg RECTAL [id number] PRN
Heparin 5,000 units SC Q12
HydrALAZINE [Apresoline] 5 mg PO HSPRN PRN
Ketorolac [Toradol] 10 mg IV Q8HPRN PRN
Polyethylene Glycol Powder [Miralax] 8.5 grams PO HS
04/30/24 22:42
Activity As Directed
Activity Level: With Assistance
Orthostatic Vital Signs As Directed
Orthostatic VS Frequency: BID
Comment: include now
Vital Signs As Directed
Frequency: Per unit guidelines
DX Deep Vein Thrombosis Video Routine
04/30/24 22:54
Pt Screening Request from Sharan Routine
04/30/24 22:58
Speech Screening from Sharan Routine
04/30/24 23:00
Pantoprazole [Protonix] 40 mg PO BID
05/01/24
DIETARY CONSULT Routine
Reason for Consult: soft diet
05/01/24 Breakfast
IDDSI 6 - Soft & Bite Sized
At Your Request: Full Participation
05/01/24 08:00
Aspirin Low Dose EC [Aspir Low (Enteric Coated)] 81 mg PO DAILY
HydrALAZINE [Apresoline] 5 mg PO DAILY
05/01/24 13:57
Mag Hydrox/Al Hydrox/Simeth [Maalox] 30 ml PO QIDPRN PRN
Teds [Anti-embolism (TAMIKA) Hose] As Directed
Type: Knee high
05/01/24 13:58
Ot Eval And Treat Routine
Pt Eval And Treat Routine
Activity Level: As Tolerated
05/01/24 16:00
Acetaminophen [Tylenol] 1,000 mg PO TID
05/02/24 07:01
Basic Metabolic Panel IN AM
Complete Blood Count/With Diff IN AM
05/02/24 08:00
Celecoxib [Celebrex] 200 mg PO DAILY
05/02/24 08:53
Bladder Scan As Directed
Follow Bladder Retention/Intermittent Cath Algorithm?: Yes
PRN if no void in __ hours: 6
Frequency: Per Retention Algorithm
If Bladder Scan Result >: 400
then:: Straight cath
Straight Cath As Directed
Frequency: Per Retention Algorithm
Additional Instructions: straight cath as needed per acute urinary retention algorithm for 24 hrs
Additional Instructions: for bladder scan greater than 400 mL
05/02/24 09:00
0.9% Sodium Chloride 1000 ml [Nss] 1,000 ml IV 70 mls/hr
05/02/24 10:08
Body Fluid for Eosinophils Urgent
Date Specimen was Collected: 05/02/24
Time Specimen was Collected: 10:03
Comment: ADD ON
UA Reflex to Culture [Urinalysis Reflex To Culture] Urgent
Date Specimen was Collected: 05/02/24
Time Specimen was Collected: 10:03
Urine Creatinine Urgent
Date Specimen was Collected: 05/02/24
Time Specimen was Collected: 10:03
Urine Microscopic Reflex Cult Urgent
Urine Sodium Urgent
Date Specimen was Collected: 05/02/24
Time Specimen was Collected: 10:03
Urine Culture Urgent
ESME Source: U
Specimen Description:
Date Specimen was Collected: 05/02/24
Time Specimen was Collected: 10:03
05/02/24 11:00
DC Protocol for Telemetry ONCE
05/02/24 12:07
Add On- LAB Stat
Tests Added?: urine eosinophils (Body Fluid for Eosinophils) Urgent
05/03/24 06:00
Basic Metabolic Panel IN AM
Complete Blood Count/With Diff IN AM
Cortisol, Random IN AM
TSH Reflex To Free T4 IN AM
Abnormal Lab Results
04/30/24 05/02/24 05/02/24
10:45 07:01 10:08
RBC 3.86 L 10^6/uL
(4.20-5.40)
MCH 34.9 H pg 35.0 H pg
(27.0-31.0) (27.0-31.0)
Absolute Monos (auto) 0.9 H 10^3/uL
(0.1-0.6)
Monocytes % 13.3 H %
(1.7-9.3)
Sodium 134 L mmol/L 131 L mmol/L
(135-145) (135-145)
BUN 45 H mg/dl
(7-17)
Creatinine 1.8 H mg/dL
(0.6-1.0)
Urine Ketones Trace A
(Negative)
Ur Occult Blood Reflex 1+ A
(Negative)
Urine RBC 3-6 A /HPF
(0-2)
Urine WBC (Reflex) 11-15 A /HPF
(0-5)
Urine Bacteria (Reflex) Few A
(Negative)
05/02/24 07:01
05/02/24 07:01
Vital Signs
Initial and Last Documented VS:
Initial Vital Signs
Temp Pulse Resp BP Pulse Ox
98.2 F 81 18 227/113 97
04/30/24 10:08 04/30/24 10:08 04/30/24 10:08 04/30/24 10:08 04/30/24 10:08
Last Documented Vital Signs
Temp Pulse Resp BP Pulse Ox
97.9 F 71 18 123/73 97
05/02/24 11:18 05/02/24 11:18 05/02/24 11:18 05/02/24 11:18 05/02/24 11:18
<Hang Deras PA-C - Last Filed: 05/02/24 12:59>
MDM/Problems Addressed
MDM/Problems Addressed:
Patient was sent for CTA due to severe hypertension and complaints of back pain rating to the chest, this showed no evidence for thoracic aortic dissection or aneurysm. She does have increased number of thoracic spine compression fractures that are
likely the source of her pain. She was noted to be markedly hypertensive in the emergency department and due to lack of taking her blood pressure meds this morning was given 1 dose of IV hydralazine as well as IV Toradol. Unfortunately this caused
a severe orthostatic response. The patient required prolonged observation in the emergency department and IV fluids.
<Josesito Griffin PA-C - Last Filed: 04/30/24 19:24>
*Critical Care Note
Total Time (30-74mins, 75-104mins- exclusive of procedures): Not Applicable
<Josesito Griffin PA-C - Last Filed: 04/30/24 19:24>
Update Note
Update Note:
Received care of patient upon signout. Patient came in with hypertension with initial blood pressure of 227/113. She was given hydralazine IV the equivalent dose of what she takes at home. Since then however the patient has been hypotensive and
orthostatic. She received fluids. She has been rechecked multiple times she is to be hypotensive and weak upon standing. I reviewed the CTA of her chest which shows compression fractures but no other acute finding. Will admit to
ED Attending Note
<Hang Deras PA-C - Last Filed: 05/02/24 12:59>
-
Portions of this chart may have been created with voice recognition software.� Occasional wrong word or��sound alike� substitutions may have occurred due to the inherent limitations of voice recognition software.
Discharge Plan
Departure
Patient Disposition: Admit
Date of Disposition: 04/30/24
Time of Disposition: 19:24
Admit to: Telemetry
Presentation/result/management discussed w/ accepting MD/DO: Hospitalist
Patient with high blood pressure during this ER visit?: No
Discharge Problem:
Acute hypotension
Interventions
Interventions:
*Risk Screen - Suicide Last Done: 04/30/24 22:45
*General Assessment Last Done: 04/30/24 10:10
*Neglect/Abuse Screening Last Done: 04/30/24 10:10
*ED COVID-19 Vaccine History Last Done: 04/30/24 22:45
*Nursing Disposition Last Done: 04/30/24 22:43
ED-Musculoskeletal Assessment Last Done: 04/30/24 10:25
Discharge Date and Time
Discharge Date/Time: 04/30/24 22:44
[2024-04-30] MEDS: TORADOL 15 MG IV (13:49)
[2024-04-30] MEDS: APRESOLINE 5 MG IV (13:49)
[2024-04-30] MEDS: NSS 500 IV (14:32)
--- NOTE | 2024-04-30 19:42 | HPS.HSE ---
Family Physician
-
Family Physician: Massimo Hoyt
Chief Complaint
-
Orthostatic hypotension
History of Present Illness
This is a 88-year-old with past medical history significant for hypertension, proximal atrial fibrillation currently not anticoagulated due to recurrent nosebleeds, GERD, esophageal stenosis status post dilation prior history of diabetes, CKD and
history of CAD who presents to the emergency department with left shoulder pain and was found to have CVA hypertension status post IV hydralazine with resultant severe orthostasis and orthostatic hypotension.
Patient reports several week history of left scapula/shoulder pain. Also sometimes radiating to the chest. Denies chest pain palpitations. ED workup was negative for ACS. She was found to have a chronic/age-indeterminate vertebral fracture.
While in the emergency department she was hypotensive and dizzy with a blood pressure of 227/113. She had missed morning dose of hydralazine. She was given 5 mg of IV hydralazine. Since then the patient has remained orthostatic. She had a
systolic blood pressure of 84 and a diastolic of 46 while standing. She was symptomatic with dizziness during this.
It appears patient does have history of orthostatic hypotension and even at home reports being careful with getting up. She reports that when she lays down or sits down for a long time and then she gets off she gets dizzy. However if he gets up
within 20 minutes she is not quite as dizzy. She uses hydralazine once a day. She only uses the hydralazine in the morning if her systolic blood pressure is greater than 115. She had been prescribed amlodipine 5 mg in the past but she is stopped
due to hypotension. She denies recent vomiting or diarrhea. She has decreased p.o. intake due to esophageal dysmotility/stenosis and is on a soft mechanical diet. She denies fevers or chills.
In the emergency department she was hypertensive. Her blood pressure currently is 170 systolic laying down, 84 systolic standing up. She is satting 97% on room air. Temp was 98.2. Troponin was negative. ECG showed normal sinus rhythm at rate of
81. CBC was unremarkable. Chemistries only notable for a sodium of 134 otherwise unremarkable. She had a CT chest angio which was negative for dissection aneurysm or hematoma.
Medical History
Past Medical History
Past Medical History: Reports Arrhythmia (paroxysmal afib), Cancer (basal cell ca), HTN, Hypercholesterolemia and NIDDM
Additional Past Medical History:
Esophageal dysmotility, dysphagia
Past Surgical History: Reports Other
Social History
Tobacco: Former Smoker
Alcohol: None
Drug: None
Personal:
Living: With Family
Employment: Retired
Family History
Family History: Not pertinent
Allergies / Home Medications
Allergies reflects when Allergies were last updated in [facility].
Home Medications with original date entered in [facility]
Allergy/Medication List:
Allergies
Allergy/AdvReac Type Severity Reaction Status Date / Time
levofloxacin [From Levaquin] Allergy Unknown Verified 04/30/24 10:04
Home Medications
amiodarone 100 mg tablet 100 mg PO HS Arrhythmia 06/30/23
aspirin 81 mg tablet,delayed release 81 mg PO DAILY Blood Clot Prevention/Tx 06/30/23
atorvastatin 10 mg tablet 10 mg PO HS High Cholesterol 06/30/23
cholecalciferol (vitamin D3) 50 mcg (2,000 unit) tablet 50 mcg PO DAILY Supplement 06/30/23
hydralazine 10 mg tablet 5 mg PO DAILY Blood Pressure 06/30/23
hydralazine 10 mg tablet 5 mg PO HSPRN PRN blood pressure 06/30/23
acetaminophen 500 mg tablet (Tylenol Extra Strength) 1,000 mg PO TID 04/30/24
celecoxib 200 mg capsule (Celebrex) 200 mg PO DAILY #14 caps 04/30/24
omeprazole 20 mg capsule,delayed release 20 mg PO BID Gastrointestinal Issue 04/30/24
polyethylene glycol 3350 17 gram oral powder packet (Miralax) 8.5 g PO HS 04/30/24
Review of Systems
-
History Source: Patient
Constitutional: Reports No Symptoms
EENT: Reports No Symptoms
Respiratory: Reports No Symptoms
Cardiac: Reports No Symptoms
: Reports No Symptoms
Musculoskeletal: Reports Joint Pain
Skin: Reports No Symptoms
Neurological: Reports No Symptoms
Endocrine: Reports No Symptoms
Hematologic/Lymphatic: Reports No Symptoms
Psych: Reports No Symptoms
Physical Exam
Vital Signs
Vital Signs
Temp Pulse Resp BP Pulse Ox
98.2 F 87 23 84/46 96
04/30/24 10:08 04/30/24 17:00 04/30/24 17:00 04/30/24 19:07 04/30/24 19:30
Physical Exam
General: No Apparent Distress, Comfortable and Conversant
HEENT: NormoCephalic, Anicteric, Moist mucous membranes and Atraumatic
Respiratory: Clear
Cardiac: S1/S2 and Regular Rhythm
Breast: Deferred by me
GI: Soft, Non Tender, Non Distended and Normal Bowel Sounds
Rectal: Deferred by Provider
Genito-urinary: Deferred by me
Musculoskeletal: No Clubbing and No Edema
Skin: Warm and Dry
Neuro: AO x 3 and Nonfocal/grossly intact
Hematologic/Lymphatic: No Lymphadenopathy
Psych: Calm
Laboratory Results
-
04/30/24 10:45
04/30/24 10:45
Laboratory Results
Total Bilirubin Cancelled 04/30/24 10:45
AST Cancelled 04/30/24 10:45
ALT Cancelled 04/30/24 10:45
Alkaline Phosphatase Cancelled 04/30/24 10:45
Data Reviewed
-
CT Scan: Report Reviewed by me
Medical Tests (Nuc Med, Echo, EKG etc): Image Personally Visualized and interpreted
Lab Data: Labs Reviewed by me
Old Records: Reviewed
Impression/Plan
-
IMPRESSION:
Patient with hypertension who developed persistent orthostatic hypotension and dizziness after IV hydralazine in ED. Given IV fluids with limited improvement. ECG shows no acute ischemia or arrhythmia. Labs are normal. Chronic protein-calorie
malnutrition but no recent fluid losses or dehydration. No recent illnesses. History suggests long-standing orthostatic hypotension with chronic hypertension.
PLAN:
1. Orthostatic hypotension - exacerbated likely secondary to IV morphine and IV hydralazine. However likely chronic. No rapid improvement with IV fluids so likely autonomic dysfunction.
- admit to telemetry observation
- place on diet and monitor
- repeat orthostatics in am if stable, can start her home hydralazine
- suspect will benefit from lower dose amlodipine instead eg 2.5 mg daily or even low dose arb
2. pAFIB - Not on AC due to recurrent severe epistaxis
- aspirin 81 daily
- continue amiodarone 100
3. Dysphagia
- soft mechanical diet
4. Backpain - age indeterminate verterbral fracture
- continue celecoxib 200 daily with prn tylenol
DVT PPX - heparin sq
Code status - Full Code
--- NOTE | 2024-04-30 23:10 | PTCARENOTE ---
Patient arrived to unit via stretcher around 22:45 with dx Orthostatic hypotension. AAOX3. Bed alarm applied to bed. Oriented to unit. Call doty within reach. No signs of distress noted.
[2024-04-30] MEDS: MIRALAX PO ×2 (23:28→23:51)
[2024-04-30] MEDS: PACERONE 100 MG PO (23:30)
[2024-04-30] MEDS: PROTONIX 40 MG PO (23:32)
[2024-04-30] MEDS: LIPITOR 10 MG PO (23:32)
[2024-04-30] MEDS: TORADOL 10 MG IV (23:40)
[2024-05-01 03:00] VITALS: BP 124/76
--- NOTE | 2024-05-01 05:00 | PTCARENOTE ---
Patient regular texture diet at home is soft and bite sized with thin liquids. Patient passed swallow test. call taker ALGEBRAIST made aware of protocol NPO order that populated but patient passing swallow test and has been on soft and bite sized diet. Per
ALGEBRAIST, NPO order dc'd and patient to be on soft and bite sized diet.
[2024-05-01 07:27] VITALS: BP 146/85
[2024-05-01] MEDS: APRESOLINE 5 MG PO (07:59)
[2024-05-01] MEDS: PROTONIX 40 MG PO ×2 (07:59→19:15)
[2024-05-01] MEDS: TORADOL 10 MG IV ×2 (08:05→19:15)
[2024-05-01 11:00] VITALS: BP 121/78; BP 134/85; BP 143/85; BP 75/49; PULSE 79; PULSE 86; PULSE 88
--- NOTE | 2024-05-01 13:56 | W.PN.HOSP.TC ---
Today's Communication/Plan
-
Monitor vital signs
See plan
Continue with BP meds
Monitor orthostatics
Teds
Assessment / Plan
Assessment / Plan
General: No Apparent Distress, Comfortable and Conversant
HEENT: NormoCephalic, Anicteric, Moist mucous membranes and Atraumatic
Respiratory: Clear
Cardiac: S1/S2 and Regular Rhythm
GI: Soft, Non Tender, Non Distended and Normal Bowel Sounds
Musculoskeletal: No Clubbing and No Edema
Neuro: AO x 3 and Nonfocal/grossly intact
Psych: Calm
Orthostatic hypotension - exacerbated likely secondary to IV morphine and IV hydralazine. However likely chronic. No rapid improvement with IV fluids so likely autonomic dysfunction.
Continue to monitor orthostatics
Teds
Continue with p.o. hydralazine
pAFIB - Not on AC due to recurrent severe epistaxis
- aspirin 81 daily
- continue amiodarone 100
Dysphagia
- soft mechanical diet
Backpain - age indeterminate verterbral fracture
- continue celecoxib 200 daily with prn tylenol
DVT PPX - heparin sq
Code status - Full Code
Anticipated Discharge: Within 24 hours
Subjective/Interval History
-
Date of Service: May 01, 2024
denies dizziness
Objective Data
-
Vital Signs:
Vital Signs
Temp Pulse Resp BP Pulse Ox
98.3 F 83 16 145/93 98
05/01/24 07:27 05/01/24 07:59 05/01/24 07:27 05/01/24 07:59 05/01/24 07:27
I&O
04/30/24 05/01/24 05/02/24
06:59 06:59 06:59
Intake Total 960 / 960
Balance 960 / 960
[2024-05-01 15:12] VITALS: BP 150/93
[2024-05-01] MEDS: TYLENOL PO (16:02)
--- NOTE | 2024-05-01 17:55 | PTCARENOTE ---
Assumed care of pt from previous nurse. pt is on tele running nsr with bbb. Pt orhto's were positive. Pt feels dizzy when standing. Pt staying on bedrest. Rings nas. bed alarm in place.
[2024-05-01 19:00] VITALS: BP 105/63
[2024-05-01] MEDS: PACERONE 100 MG PO (21:02)
[2024-05-01] MEDS: LIPITOR 10 MG PO (21:04)
[2024-05-01] MEDS: TYLENOL 1000 MG PO (21:04)
[2024-05-01] MEDS: MIRALAX 8.5 GRAMS PO (21:05)
[2024-05-01 23:00] VITALS: BP 134/68
[2024-05-02] VITALS (10 sets, daily range): BP systolic 83–169; BP diastolic 49–97; PULSE 68–76; O2SAT 96
[2024-05-02 07:47] LABS: % Basophils 0.6 % (0-2); % Eosinophils 4.1 % (0-6); % Immature Granulocytes 0.3 % (0-0.5); % Lymphocytes 23.3 % (20.5-51.1); % Monocytes 13.3 % (1.7-9.3); % Neutrophils 58.4 % (42.2-75.2); Absolute Eosinophils 0.3 10^3/uL (0-0.7); Absolute Lymphocytes 1.6 10^3/uL (1.2-3.4); Absolute Monocytes 0.9 10^3/uL (0.1-0.6); Absolute Neutrophils 4.1 10^3/uL (1.4-6.5); Hematocrit 37.9 % (37.0-47.0); Hemoglobin 13.5 g/dL (12.0-16.0); Mean Corp Hgb Conc. 35.6 g/dL (33.0-37.0); Mean Corpuscular Volume 98.2 fL (81.0-99.0); Mean Platelet Volume 8.8 fL (7.4-10.4); Nucleated Red Blood Cells % 0 %; Platelet Count 235 10^3/uL (130-400); Red Blood Cell Count 3.86 10^6/uL (4.20-5.40); Red Cell Dist. Width 13.1 % (11.5-14.5)
[2024-05-02 08:24] LABS: Blood Urea Nitrogen 45 mg/dl (7-17); Calcium 8.7 mg/dl (8.4-10.2); Carbon Dioxide 23 mmol/L (22-30); Chloride 99 mmol/L (98-107); Estimated Creatinine Clearance 15 ml/min; Glucose 94 mg/dl (70-99); Potassium 3.8 mmol/L (3.5-5.1); Sodium 131 mmol/L (135-145); eGFR 26.93
[2024-05-02] MEDS: PROTONIX 40 MG PO ×2 (09:41→20:40)
[2024-05-02] MEDS: TYLENOL 1000 MG PO ×3 (09:42→20:42)
[2024-05-02] MEDS: APRESOLINE 5 MG PO (09:44)
[2024-05-02] MEDS: NSS 1000 IV (09:45)
[2024-05-02 10:24] LABS: Urine Albumin Trace (Neg - Trace); Urine Bilirubin Negative (Negative); Urine Character Clear (Clear); Urine Color Yellow; Urine Glucose Negative (Negative); Urine Ketone Trace (Negative); Urine Leukocyte Negative (Negative); Urine Nitrite Negative (Negative); Urine Occult Blood 1+ (Negative); Urine Urobilinogen Negative (Neg - 1+)
[2024-05-02] MEDS: MAALOX 30 ML PO (10:26)
[2024-05-02 10:50] LABS: Urine Bacteria Few (Negative)
[2024-05-02 11:34] LABS: Urine Sodium 55 mmol/L (30-90)
--- NOTE | 2024-05-02 12:21 | W.PN.HOSP.TC ---
Today's Communication/Plan
-
Monitor vital signs see plan
Start fluids
Check UA, urine lites, urine eos
Monitor urine output
Continue to monitor orthostatics
TSH, cortisol
pt/ot
Assessment / Plan
Assessment / Plan
General: No Apparent Distress, Comfortable and Conversant
HEENT: NormoCephalic, Anicteric, Moist mucous membranes and Atraumatic
Respiratory: Clear
Cardiac: S1/S2 and Regular Rhythm
GI: Soft, Non Tender, Non Distended and Normal Bowel Sounds
Musculoskeletal: No Clubbing and No Edema
Neuro: AO x 3 and Nonfocal/grossly intact
Psych: Calm
Orthostatic hypotension - exacerbated likely secondary to IV morphine and IV hydralazine. However likely chronic.
Continue to monitor orthostatics
Teds
Continue with p.o. hydralazine
Check TSH, cortisol
ABDI
Could be secondary to fluctuation of blood pressure, recent contrast
DC Toradol
Check UA, urine lites, urine eos
Bladder scan
Gentle hydration
If renal function does not improve then will need nephrology evaluation
Hyponatremia
Monitor
pAFIB - Not on AC due to recurrent severe epistaxis
- aspirin 81 daily
- continue amiodarone 100
Dysphagia
Esophageal dysmotility
- soft mechanical diet
Large hiatal hernia
Monitor
Backpain - age indeterminate vertebral fracture
Continue with Tylenol, hold Celebrex
DVT PPX - heparin sq
Code status - Full Code
PT/OT
I spent a total of 52 minutes with the patient or on the floor. More than 50% of this time involved counseling and coordination of care.
Anticipated Discharge: > 48 hours
Subjective/Interval History
-
Date of Service: May 02, 2024
denies pain
Objective Data
-
Labs:
Laboratory Results
05/02/24
07:01
WBC 7.0
Hgb 13.5
Hct 37.9
Plt Count 235
Sodium 131 L
Potassium 3.8
Chloride 99
Carbon Dioxide 23
BUN 45 H
Creatinine 1.8 H
Glucose 94
Calcium 8.7
Vital Signs:
Vital Signs
Temp Pulse Resp BP Pulse Ox
97.9 F 71 18 123/73 97
05/02/24 11:18 05/02/24 11:18 05/02/24 11:18 05/02/24 11:18 05/02/24 11:18
I&O
05/01/24 05/02/24 05/03/24
06:59 06:59 06:59
Intake Total 960 / 960 1550 / 1550 1160 / 1160
Output Total 200 / 200
Balance 960 / 960 1550 / 1550 960 / 960
[2024-05-02 13:25] LABS: Body Fluid for Eosinophils No Eosinophils seen
--- NOTE | 2024-05-02 15:00 | CM ---
CM reviewed chart, patient seen bedside, initial assessment completed. Patient resides with her son in a two level home, patient has a first floor set up, reports there are a few steps into the home. Patient uses a cane for ambulation if needed,
reports VN and SNF ([facility]) in the past (2011). Patient reports she has more recently had outpatient PT. Patient confirms PCP Dr. Hoyt, pharmacy [facility], confirms prescription coverage. Patient denies insecurities at home. PT/OT consulted,
will watch for further recommendations, will continue to follow for all discharge planning needs. THAYER form reviewed verbally, provided with copy, placed in chart.
Plan; home with son, watch for VN/SNF recommendations.
[2024-05-02] MEDS: MIRALAX 8.5 GRAMS PO (20:40)
[2024-05-02] MEDS: LIPITOR 10 MG PO (20:41)
[2024-05-02] MEDS: PACERONE 100 MG PO (20:41)
[2024-05-03 03:35] VITALS: BP 165/91
[2024-05-03 07:00] VITALS: BP 209/103
[2024-05-03 08:00] LABS: % Basophils 0.6 % (0-2); % Eosinophils 3.5 % (0-6); % Immature Granulocytes 0.4 % (0-0.5); % Lymphocytes 17.1 % (20.5-51.1); % Monocytes 9.2 % (1.7-9.3); % Neutrophils 69.2 % (42.2-75.2); Absolute Basophils 0.1 10^3/uL (0-0.2); Absolute Eosinophils 0.3 10^3/uL (0-0.7); Absolute Lymphocytes 1.4 10^3/uL (1.2-3.4); Absolute Monocytes 0.7 10^3/uL (0.1-0.6); Absolute Neutrophils 5.5 10^3/uL (1.4-6.5); Hematocrit 37.3 % (37.0-47.0); Hemoglobin 13.5 g/dL (12.0-16.0); Mean Corp Hgb Conc. 36.2 g/dL (33.0-37.0); Mean Corpuscular Hgb 35.2 pg (27.0-31.0); Mean Corpuscular Volume 97.1 fL (81.0-99.0); Mean Platelet Volume 8.9 fL (7.4-10.4); Nucleated Red Blood Cells % 0 %; Platelet Count 236 10^3/uL (130-400); Red Blood Cell Count 3.84 10^6/uL (4.20-5.40); Red Cell Dist. Width 12.9 % (11.5-14.5); White Blood Cell Count 7.9 10^3/uL (4.8-10.8)
[2024-05-03] MEDS: APRESOLINE 5 MG PO (08:09)
[2024-05-03] MEDS: TYLENOL 1000 MG PO (08:10)
[2024-05-03] MEDS: PROTONIX 40 MG PO (08:13)
[2024-05-03] MEDS: TYLENOL PO (08:15)
[2024-05-03 08:40] LABS: Blood Urea Nitrogen 30 mg/dl (7-17); Calcium 8.5 mg/dl (8.4-10.2); Carbon Dioxide 25 mmol/L (22-30); Chloride 104 mmol/L (98-107); Estimated Creatinine Clearance 26 ml/min; Glucose 95 mg/dl (70-99); Potassium 3.7 mmol/L (3.5-5.1); Sodium 134 mmol/L (135-145); eGFR 54.53
[2024-05-03 08:48] LABS: TSH Reflex To Free T4 2.75 uIU/ml (0.47-4.68)
--- NOTE | 2024-05-03 09:17 | W.PN.HOSP.TC ---
Addendum entered and electronically signed by Ingrid Schwartz MD 05/04/24 12:48:
# Cachectic
Addendum entered and electronically signed by Ingrid Schwartz MD 05/03/24 15:04:
total DC time 36 min
Original Note:
Today's Communication/Plan
-
see A/P
Assessment / Plan
Assessment / Plan
A/P:
# Chronic orthostatic hypotension, likely exacerbated by IV morphine, IV hydralazine and dehydration.
Cont to monitor orthostatics
Cont Teds
Continue with p.o. hydralazine
TSH WNL at 2.75
Collow cortisol level
# Likely prerenal ABDI, resolved
s/p gentle hydration
SCr 1.8 to 1.0
# Hyponatremia, improved
Sodium 131 to 134
# pAFIB - Not on AC due to recurrent severe epistaxis
aspirin 81 daily
continue amiodarone 100
# Dysphagia
# Esophageal dysmotility
soft mechanical diet
# Large hiatal hernia
Monitor
# Chronic lower back pain - age indeterminate vertebral fracture
Continue with Tylenol, hold Celebrex
Informed about Salonpas patch for as needed use
# Urine culture was sent but pt is asymptomatic (denies to urinary symptoms), hence no need to treat
DVT ppx: change to Lovenox SQ
Code status - Full Code
Dispo: PT/OT recc home PT vs SNF. Pt prefers outpt PT
DW RN
updated son on the phone
Anticipated Discharge: Today
Subjective/Interval History
-
Date of Service: May 03, 2024
Objective Data
-
Labs:
Laboratory Results
05/03/24
06:53
WBC 7.9
Hgb 13.5
Hct 37.3
Plt Count 236
Sodium 134 L
Potassium 3.7
Chloride 104
Carbon Dioxide 25
BUN 30 H
Creatinine 1.0
Glucose 95
Calcium 8.5
Vital Signs:
Vital Signs
Temp Pulse Resp BP Pulse Ox
36.6 C 74 16 170/108 94
05/03/24 03:35 05/03/24 08:09 05/03/24 03:35 05/03/24 08:09 05/03/24 03:35
I&O
05/02/24 05/03/24 05/04/24
06:59 06:59 06:59
Intake Total 1550 / 1550 2760 / 2760
Output Total 1225 / 1225
Balance 1550 / 1550 1535 / 1535
Review of Systems
-
All other systems: Reviewed and negative
Physical Exam
-
General: Well Developed, Well Nourished, No Apparent Distress and Comfortable
HEENT: Normocephalic and Atraumatic
Respiratory: Non Labored Respirations; Negative Accessory Resp Muscle Use
Cardiac: Regular Rhythm and S1/S2
GI: Soft, Nontender and Nondistended
Neuro: Awake, Alert and Oriented
Psych: Calm and Intact Judgement/Insight
Data Reviewed
-
Labs: Labs Reviewed by me
--- NOTE | 2024-05-03 10:32 | CM ---
Patient seen bedside.
IMM competed.
Patient for anticipated d/c home today with f/u outpatient therapy.
Son will transport home.
Ambulated in halls with nursing.
Plan:home with script for outpatient therapy.
[2024-05-03 11:00] VITALS: BP 172/89
--- NOTE | 2024-05-03 14:48 | W.DCSUMMARY ---
Discharge Summary
Discharge Data
Date of Admission: 05/02/24
Date of Discharge: 05/03/24
-
Pending Results: No
Hospital Course
Principal Diagnosis:
Acute on chronic orthostatic hypotension, acute component likely due to IV morphine, IV hydralazine and dehydration.
Prerenal acute kidney injury (ABDI), resolved IV fluid resuscitation
Improved hyponatremia following IV fluid
Chronic Diagnoses:�
Paroxysmal atrial fibrillation not on anticoagulation due to severe epistaxis
Dysphagia and esophageal dysmotility, on soft mechanical diet
Large hiatal hernia
Chronic lower back pain - age indeterminate vertebral fracture
Consultations:�
None
Procedures:�
None
Clinical course:�
This is a 88-year-old female, with past medical history as stated above, who presented with mild dizziness with varying position. She was noted to have significant orthostatic hypotension
Problem 1:
Acute on chronic orthostatic hypotension, acute component likely due to IV morphine, IV hydralazine and dehydration.
She has been informed to continue with TAMIKA stockings.
Her TSH was within normal limit at 2.75.
Her random cortisol level also within normal limit at 25.
She can continue with prior to admission oral hydralazine for blood pressure control.
Problem 2:
Prerenal ABDI, resolved IV fluid resuscitation.
Her serum creatinine down trended from 1.8 to 1.0.
Problem 3:
Mild hyponatremia, improved from 131 to 134 following IV fluid.
As for the rest of her medical problems, they were stable during her hospital stay.
Discharge Plan
-
Patient Disposition: Home with Home Care
Discharge Diagnosis/Procedures: Chronic orthostatic hypotension (likely exacerbated by IV morphine, IV hydralazine and dehydration);
Resolved prerenal acute kidney injury
Condition: Fair
Diet: Other diet
Additional Diets: soft mechanical diet
Activity: As tolerated
Driving Restrictions: As prior to admission
Referrals:
Massimo Hoyt MD [Family Provider] - in less than 1 week
Additional Discharge Medication Instructions: try lidocaine patch or Salonpas for lower back pain
Prescriptions:
Continued
hydralazine 10 mg Tablet
5 mg PO DAILY
hydralazine 10 mg Tablet
5 mg PO HSPRN PRN (Reason: blood pressure)
atorvastatin 10 mg Tablet
10 mg PO HS
aspirin 81 mg Tablet,Delayed Release (Dr/Ec)
81 mg PO DAILY
amiodarone 100 mg Tablet
100 mg PO HS
cholecalciferol (vitamin D3) 50 mcg (2,000 unit) Tablet
50 mcg PO DAILY
polyethylene glycol 3350 [Miralax] 17 gram Powder In Packet
8.5 g PO HS
acetaminophen [Tylenol Extra Strength] 500 mg Tablet
1,000 mg PO TID
omeprazole 20 mg capsule,delayed release(DR/EC)
20 mg PO BID
Discharge Orders:
Discharge Patient (As Directed); Ordered 05/03/24
Ordered By: Ingrid Schwartz
Discharge Date and Time
Discharge Date/Time: 05/03/24 12:00
Print Language: TONGAN
--- NOTE | 2024-05-04 07:35 | PN.CDI ---
CDI
- -
CDI:
Physician Documentation Request
Admit Date: 05/02/24 12:25
Dear Doctor Lana,
Please review the following and provide your response in the progress notes.
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
Height: 5'2
Weight: 92 lbs
BMI: 16.9
Other Clinical Notes:
- 05/01 internal medicine doctor notes that she is on a soft and chopped diet due to esophageal motility and sees and outpatient RD for weight mgmt.
If possible, please provide an associated diagnosis related to the abnormal BMI, such as:
Cachectic
Underweight
Other (please specify)
Use of terms such as suspected, likely, concern for, or probable (associated with a specific diagnosis that is being evaluated, monitored, or treated as if it exists) are acceptable and can be coded in the inpatient setting, when documented at the
time of discharge.
Thank you,
Ana Smith RN
CDI Specialist
Please use your independent medical judgment in providing your response.
== END 2024-05-03 12:00 | disposition home health service (06) | DRG 683 ==
LOC: 4 WEST ACU 12:25
PROVIDERS: Internal Medicine; Physician Assistant; ADMITTING PHYSICIAN Internal Medicine; ATTENDING PHYSICIAN Internal Medicine; EMERGENCY PHYSICIAN Student in an Organized Health Care Education/Training Program; FAMILY PHYSICIAN Family Medicine
DX: N17.9 Acute kidney failure, unspecified (principal); E87.1 Hypo-osmolality and hyponatremia; R64 Cachexia; Z68.1 Body mass index [BMI] 19.9 or less, adult; E86.0 Dehydration; I95.1 Orthostatic hypotension; I48.0 Paroxysmal atrial fibrillation; K44.9 Diaphragmatic hernia without obstruction or gangrene; M54.50 Low back pain, unspecified; G89.29 Other chronic pain; K22.4 Dyskinesia of esophagus
CPT/HCPCS: 71275; 80048; 81003; 81015; 81099; 82533; 82570; 84300; 84443; 85025; 87086; 93005; 96361; 96374; 96375; 97161; 97166; 99285; Q9967

== ENCOUNTER 2024-06-09 08:48 | Emergency (ER) | payer OTHER, SELFPAY ==
[2024-06-09] VITALS (11 sets, daily range): BP systolic 132–213; BP diastolic 79–115; BMI 18.7
--- NOTE | 2024-06-09 10:11 | ED.GENMED ---
History of Present Illness
General
Chief Complaint: Back Pain
Source: patient
Exam Limitations: none
Time Seen by Provider: 06/09/24 10:09
Nursing documentation reviewed up to this point in time: agreed with
History of Present Illness
History of Present Illness:
88-year-old female with history of A-fib on aspirin only, HTN, HLD, GERD presents for worsening low back pain since a fall in her kitchen on 05/14/24. States initially for 2 days after the fall she felt 'OK' but then she started having back spasms and
worsening pain and feeling pressure in her groin areas. She has had to resort to using cane. She also feels constipated. Last BM 3 days ago. She has been taking Miralax HS as she always does. She denies abdominal pain, n/v, fever/chills. Her
appetite has been good as usual per son at bedside who lives with her.
Pt denies saddle numbness, loss of bowel or bladder control, leg weakness. Pain 3/10 at rest 10/10 with any movement
Past History
Past History
ED Past Medical History: Arrthythmia (Atrial fib), Cancer (Basal cell), HTN, Hypercholesterolemia, NIDDM, LA, Other (Cardiomyopathy, abnormal LFTs, vent dependent respiratory failure, aspiration pneumonia, Sweet syndrome) and Other (Epistaxis,
thrombocytopenia, anemia)
ED Past Surgical History: Cardiac (Cardioversion 2010, JONES) and Other (Mohs surgery right face, bilateral cataract extractions)
Social History
Tobacco: Former smoker
Alcohol: Daily (wine 1 glass)
Personal:
Living: with family
Employment: Retired
Family History
Family History: Other (Reviewed and noncontributory)
Review of Systems
Review of Systems
Allergies reviewed?: Yes
Other source history: family
All Other Systems: ROS reviewed and negative except as documented in HPI and ROS
Constitutional: Denies fever
Respiratory: Denies trouble breathing
Cardiac: Denies chest pain
ABD/GI: Reports constipated; Denies abdominal pain, nausea, vomiting, diarrhea or anorexia
: Denies dysuria, frequency, incontinence or difficulty voiding
Musculoskeletal: Reports back pain; Denies neck pain
Skin: Reports no symptoms
Neurological: Reports no symptoms
Phy Exam
Physical Exam
Physical Exam:
GENERAL: No acute distress. A&Ox3.
CONSTITUTIONAL: Afebrile.
EYES: clear, conjunctivae normal
ENMT: moist mucus membranes, Pharynx nl
RESPIRATORY: Regular respirations, nonlabored, lungs clear.
CARDIOVASCULAR: Regular rate and rhythm, no murmurs, no rubs.
GI: Soft, nontender, normal BS
MUSCULOSKELETAL: Any movement causes significant pain in her lower back. Tender to palpate T12-S1. No swelling or discoloration here. Well perfused.
SKIN: Warm, dry, pink
PSYCH: Normal mood and affect. Well kept, interactive and appropriate
NEUROLOGIC: Awake, alert and oriented. Strength 5/5 bilateral LEs. No focal neurological deficits
Course
Orders/Labs/Results
Orders:
Orders
06/09/24 10:28
HYDROmorphone [Dilaudid] 1 mg IM NOW STA
06/09/24 10:29
L-S Spine, 2 or 3 View [CR Lumbar Spine 2 Or 3 Views] Urgent
Comment:
Reason For Exam: pain after fall
06/09/24 13:04
Physical Therapy Consult [Pt Eval And Treat] Urgent
Activity Level: As Tolerated
06/09/24 13:52
Case Management Consult ONCE
Case Management Consult: Discharge Planning
Comment: Pt needs rehab for inability to ambulate. Compression fx L1-2 P/T already evaluated. Thanks She hopes
for [facility]
06/09/24 13:55
HydrALAZINE [Apresoline] 10 mg PO NOW STA
06/09/24 14:52
Complete Blood Count/With Diff Urgent
Comprehensive Metabolic Panel Urgent
06/09/24 17:59
Atorvastatin [Lipitor] 10 mg PO NOW STA
06/09/24 18:13
Amiodarone [Pacerone] 100 mg PO NOW STA
Abnormal Lab Results
06/09/24
14:52
MCV 100.2 H fL
(81.0-99.0)
MCH 34.9 H pg
(27.0-31.0)
Absolute Neuts (auto) 6.6 H 10^3/uL
(1.4-6.5)
Absolute Monos (auto) 1.1 H 10^3/uL
(0.1-0.6)
Lymphocytes % 17.2 L %
(20.5-51.1)
Monocytes % 11.4 H %
(1.7-9.3)
Glucose 102 H mg/dl
(70-99)
Alkaline Phosphatase 167 H U/L
(38-126)
Total Protein 6.2 L g/dl
(6.3-8.2)
06/09/24 14:52
06/09/24 14:52
Vital Signs
Initial and Last Documented VS:
Initial Vital Signs
Temp Pulse Resp BP Pulse Ox
97.8 F 89 18 175/108 97
06/09/24 08:51 06/09/24 08:51 06/09/24 08:51 06/09/24 08:51 06/09/24 08:51
Last Documented Vital Signs
Temp Pulse Resp BP Pulse Ox
97.8 F 80 18 132/85 92
06/09/24 08:51 06/09/24 15:43 06/09/24 15:43 06/09/24 18:00 06/09/24 17:12
MDM/Problems Addressed
Differential Diagnosis Includes:
Fx vertebrae,
MDM/Problems Addressed:
88-year-old female with history of A-fib on aspirin only, HTN, HLD, GERD presents for worsening low back pain since a fall in her kitchen on 05/14/24. States initially for 2 days after the fall she felt 'OK' but then she started having back spasms and
worsening pain and feeling pressure in her groin areas. She has had to resort to using cane. She also feels constipated. Last BM 3 days ago. She has been taking Miralax HS as she always does. She denies abdominal pain, n/v, fever/chills. Her
appetite has been good as usual per son at bedside who lives with her.
Pt denies saddle numbness, loss of bowel or bladder control, leg weakness. Pain 3/10 at rest 10/10 with any movement
Pleasant, no neuro deficits.
1:00 PM:
Good relief of pain with medication
X-ray report chest back: IMPRESSION: Moderate age indeterminate L1 and L2 compression fractures.
Moderate upper lumbar spine dextroscoliosis.
Bony demineralization.
1:30 PM patient blood pressure 201/103. She took her hydralazine 5 mg this morning. I attempted to give her another hydralazine 5 mg but she is refusing stating 'the last time they gave me that in a shot it dropped my blood pressure really low.'
I reassured her we are monitoring her blood pressure and we can take care of her if her blood pressure drops but she still refuses to take it.
Pt awaiting P/T eval. She does not feel safe going home because 'I can't walk' I'm afraid I'll fall.'
1:50 PM:
P/T in, she is full assist she is unable to ambulate at this time
Case management consulted for rehab placement
Hydralazine p.o. ordered for her blood pressure
4:00 p.m. After Hydralazine BP 166/93
Case Management working on placement for rehab
5:00 .m.
Case Mgmt received authorization for pt to go to [facility]
ED Attending Note
-
Portions of this chart may have been created with voice recognition software.� Occasional wrong word or��sound alike� substitutions may have occurred due to the inherent limitations of voice recognition software.
Discharge Plan
Departure
Prescriptions:
No Action
hydralazine 10 mg Tablet
5 mg PO DAILY
hydralazine 10 mg Tablet
5 mg PO HSPRN PRN (Reason: blood pressure)
atorvastatin 10 mg Tablet
10 mg PO HS
aspirin 81 mg Tablet,Delayed Release (Dr/Ec)
81 mg PO DAILY
amiodarone 100 mg Tablet
100 mg PO HS
cholecalciferol (vitamin D3) 50 mcg (2,000 unit) Tablet
50 mcg PO DAILY
polyethylene glycol 3350 [Miralax] 17 gram Powder In Packet
8.5 g PO HS
acetaminophen [Tylenol Extra Strength] 500 mg Tablet
1,000 mg PO TID
omeprazole 20 mg capsule,delayed release(DR/EC)
20 mg PO BID
Referrals:
Massimo Hoyt MD [Family Provider] -
Interventions
Interventions:
*Risk Screen - Suicide Last Done: 06/09/24 08:51
*General Assessment Last Done: 06/09/24 08:51
*Neglect/Abuse Screening Last Done: 06/09/24 08:51
ED- Fall Risk Assessment Last Done: 06/09/24 15:44
*ED COVID-19 Vaccine History Last Done: 06/09/24 08:51
ED-Musculoskeletal Assessment Last Done: 06/09/24 14:55
Discharge Date and Time
Print Language: UPPER SORBIAN
[2024-06-09] MEDS: DILAUDID 1 MG IM ×2 (10:55→19:10)
[2024-06-09] MEDS: APRESOLINE 10 MG PO (14:41)
[2024-06-09 15:13] LABS: % Basophils 0.4 % (0-2); % Eosinophils 0.7 % (0-6); % Immature Granulocytes 0.4 % (0-0.5); % Lymphocytes 17.2 % (20.5-51.1); % Monocytes 11.4 % (1.7-9.3); % Neutrophils 69.9 % (42.2-75.2); Absolute Eosinophils 0.1 10^3/uL (0-0.7); Absolute Lymphocytes 1.6 10^3/uL (1.2-3.4); Absolute Monocytes 1.1 10^3/uL (0.1-0.6); Absolute Neutrophils 6.6 10^3/uL (1.4-6.5); Hematocrit 42.8 % (37.0-47.0); Hemoglobin 14.9 g/dL (12.0-16.0); Mean Corp Hgb Conc. 34.8 g/dL (33.0-37.0); Mean Corpuscular Hgb 34.9 pg (27.0-31.0); Mean Corpuscular Volume 100.2 fL (81.0-99.0); Mean Platelet Volume 8.6 fL (7.4-10.4); Nucleated Red Blood Cells % 0 %; Platelet Count 236 10^3/uL (130-400); Red Blood Cell Count 4.27 10^6/uL (4.20-5.40); Red Cell Dist. Width 13.4 % (11.5-14.5); White Blood Cell Count 9.5 10^3/uL (4.8-10.8)
[2024-06-09 15:29] LABS: ALT (SGPT) 21 U/L (0-35); AST (SGOT) 26 U/L (14-36); Albumin 3.7 g/dl (3.5-5.0); Alkaline Phosphatase 167 U/L (38-126); Blood Urea Nitrogen 16 mg/dl (7-17); Calcium 8.5 mg/dl (8.4-10.2); Carbon Dioxide 28 mmol/L (22-30); Chloride 99 mmol/L (98-107); Estimated Creatinine Clearance 40 ml/min; Glucose 102 mg/dl (70-99); Potassium 4.3 mmol/L (3.5-5.1); Sodium 137 mmol/L (135-145); Total Bilirubin 0.8 mg/dl (0.2-1.3); Total Protein 6.2 g/dl (6.3-8.2); eGFR > 60.00
--- NOTE | 2024-06-09 16:53 | CM ---
Addendum entered by AKIN Cervantes 06/09/24 17:11:
RN confirmed that she can coordinate transport. Spoke with patient who expressed that she is agreeable to going to [facility] for Rehab. [place] Texted address of facility to RN so that she can provide to patient.
Original Note:
Received referral for discharge planning. Met with patient to obtain information for assessment. Patient lives in a one story home with her son and three steps to enter. She was independent with her ADLs, personal care, dressing and bathed at the
sink. Her son would assist her when needed. Patient's son stated that he does all the laundry, cleaning, tin stacker and they both cook. Patient uses a walker and a cane to assist with her ambulation but denied any other DME. Her son can
transport her to her shopping and appointments.
Patient has been to [facility] in the distance past. She has had VN services.
She has a prescription plan and she uses, [facility] for all of her medications.
Her PCP is, Massimo Hoyt.
Patient's son stated that he can't currently support patient at home. Patient agreeable to SNF. She stated that her preference would be for [facility] however was agreeable to all [place] facilities, [facility], [facility], [facility], if [facility] unable to accept.
[facility] who stated that she is unsure of bed availability for tonight. Placed a call to admissions at [facility], [facility], who stated that she does have a bed at [facility]. NPIs for
auth-[id number] and attending [phone] Dr. Pagan.
Placed a call to [facility] and spoke with a motor vehicle field representative named, Chetna, who reviewed clinical and issued authorization # [id number] 6 days skilled from 06/09-06/14 clinical should be called in to [phone].
# For report [phone] fax [phone]
RN updated. She confirmed that she can complete medical necessity and transfer sheet for ambulance transport.
Plan: Case management will continue to follow and assist with discharge planning. Transfer to [facility] this evening. Patient medically stable per ED MD.
[2024-06-09] MEDS: PACERONE 100 MG PO (19:08)
[2024-06-09] MEDS: LIPITOR 10 MG PO (19:08)
== END 2024-06-09 19:51 ==
LOC: EMR 08:48
PROVIDERS: Registered Nurse; EMERGENCY PHYSICIAN Emergency Medicine; FAMILY PHYSICIAN Family Medicine
DX: S32.018A Other fracture of first lumbar vertebra, initial encounter for closed fracture (principal); S32.028A Other fracture of second lumbar vertebra, initial encounter for closed fracture; W19.XXXA Unspecified fall, initial encounter; I10 Essential (primary) hypertension; E78.00 Pure hypercholesterolemia, unspecified; K21.9 Gastro-esophageal reflux disease without esophagitis; Z87.891 Personal history of nicotine dependence
CPT/HCPCS: 99284; 96372 ×2; 72100; 80053; 85025

== ENCOUNTER 2024-07-19 13:09 | Inpatient (IN) | payer OTHER, SELFPAY ==
[2024-07-19] VITALS (9 sets, daily range): BP systolic 115–199; BP diastolic 71–102; BMI 17.1
[2024-07-19 11:36] LABS: % Basophils 0.1 % (0-2); % Eosinophils 0.1 % (0-6); % Immature Granulocytes 0.8 % (0-0.5); % Lymphocytes 21.5 % (20.5-51.1); % Monocytes 10.7 % (1.7-9.3); % Neutrophils 66.8 % (42.2-75.2); Absolute Immature Granulocytes 0.1 10^3/uL (0-0.05); Absolute Lymphocytes 1.6 10^3/uL (1.2-3.4); Absolute Monocytes 0.8 10^3/uL (0.1-0.6); Absolute Neutrophils 5.1 10^3/uL (1.4-6.5); Hematocrit 43.1 % (37.0-47.0); Mean Corp Hgb Conc. 34.8 g/dL (33.0-37.0); Mean Corpuscular Hgb 33.9 pg (27.0-31.0); Mean Corpuscular Volume 97.5 fL (81.0-99.0); Mean Platelet Volume 8.3 fL (7.4-10.4); Nucleated Red Blood Cells % 0 %; Platelet Count 401 10^3/uL (130-400); Red Blood Cell Count 4.42 10^6/uL (4.20-5.40); White Blood Cell Count 7.6 10^3/uL (4.8-10.8)
--- NOTE | 2024-07-19 11:55 | ED.GENMED ---
History of Present Illness
General
Chief Complaint: Abdominal Symptoms
Source: patient and family
Exam Limitations: none
Time Seen by Provider: 07/19/24 11:45
History of Present Illness
History of Present Illness:
See MDM
Past History
Past History
ED Past Medical History: Arrthythmia (Atrial fib), Cancer (Basal cell), HTN, Hypercholesterolemia, NIDDM, [place], Other (Cardiomyopathy, abnormal LFTs, vent dependent respiratory failure, aspiration pneumonia, Sweet syndrome) and Other (Epistaxis,
thrombocytopenia, anemia)
ED Past Surgical History: Cardiac (Cardioversion 2010, JONES) and Other (Mohs surgery right face, bilateral cataract extractions)
Social History
Tobacco: Former smoker
Alcohol: Daily (wine 1 glass)
Personal:
Living: with family
Employment: Retired
Family History
Family History: Other (Reviewed and noncontributory)
Phy Exam
Physical Exam
Physical Exam:
See MDM
Course
Orders/Labs/Results
Orders:
Orders
07/19/24 11:26
CMP [Comprehensive Metabolic Panel] Urgent
Complete Blood Count/With Diff Urgent
Lipase Urgent
Magnesium Urgent
Comment: ADD ON
07/19/24 11:54
0.9% Sodium Chloride 1000 ml [Nss] 1,000 ml IV BOLUS
07/19/24 11:55
CR Chest - 2 Views Urgent
Comment:
Reason For Exam: SOB, productive cough
07/19/24 12:36
Morphine Sulfate 4 mg IV NOW STA
Piperacillin/Tazo 3.375 Gram [Zosyn] 3.375 gram in 50 ml IV NOW
Potassium Chloride Powder [Klor-Con] 20 meq PO NOW STA
07/19/24 12:38
Ondansetron Injectable [Zofran] 4 mg IV NOW STA
07/19/24 12:56
Admit/Transfer Patient As Directed
Co-Sign Provider:
Level of Care: Inpatient admission
Assign to:: Medical/Surgical
Physician / Group: Monica
Diagnosis: Pneumonia
Reason for Hospitalization: IV abx
Expected length of stay greater than two midnights?: Yes
ELOS- Estimated Length of Stay in days: 3
I certify the patient meets the requirements for IP care: Yes
PRN Pain Medication Management As Directed
May give lesser potent ordered pain med per pt: Yes
preference::
Protocol:: Medication orders for pain may be administered in a
manner that supports deferring to patient preference
when the pt is:
- Requesting an ordered lesser potent pain medication.
Least to most potent pain medications are defined
as: acetaminophen < NSAID < tramadol < opioids
(morphine, oxycodone, hydromorphone).
- Requesting a lesser dose of the same medication IF
ORDERED.
- Requesting a less intrusive route of administration
if both routes are prescribed by the provider (PO <
IV).
07/19/24 12:59
Code Status As Directed
Resuscitation Status: Full Code
07/19/24 13:01
Add On- LAB Routine
Tests Added?: magnesium
07/19/24 13:03
ECG [Electrocardiogram (*1)] Urgent
Reason for Study: QTc Monitoring
07/19/24 13:09
COVID-19 Antigen Urgent
Source: Nasal Swab
Influenza A+B Rapid Molecular Urgent
ESME Source: Nasal Swab
Specimen Description:
07/19/24 13:23
Sputum Culture [Respiratory Culture/Gram Stain] Urgent
ESME Source: Sputum
Specimen Description:
Date Specimen was Collected: 07/19/24
Time Specimen was Collected: 13:20
Abnormal Lab Results
07/19/24
11:26
MCH 33.9 H pg
(27.0-31.0)
Plt Count 401 H 10^3/uL
(130-400)
Abs Immat Gran (auto) 0.1 H 10^3/uL
(0-0.05)
Absolute Monos (auto) 0.8 H 10^3/uL
(0.1-0.6)
Immature Gran % 0.8 H %
(0-0.5)
Monocytes % 10.7 H %
(1.7-9.3)
Sodium 134 L mmol/L
(135-145)
Potassium 3.1 L mmol/L
(3.5-5.1)
Chloride 96 L mmol/L
(98-107)
Glucose 111 H mg/dl
(70-99)
Magnesium 1.4 L mg/dl
(1.6-2.3)
Alkaline Phosphatase 210 H U/L
(38-126)
07/19/24 11:26
07/19/24 11:26
Vital Signs
Initial and Last Documented VS:
Initial Vital Signs
Temp Pulse Resp BP Pulse Ox
98.4 F 79 18 158/93 94
07/19/24 09:59 07/19/24 09:59 07/19/24 09:59 07/19/24 09:59 07/19/24 09:59
Last Documented Vital Signs
Temp Pulse Resp BP Pulse Ox
98.4 F 72 22 175/99 96
07/19/24 09:59 07/19/24 12:15 07/19/24 12:15 07/19/24 12:00 07/19/24 12:15
MDM/Problems Addressed
Differential Diagnosis Includes:
HPI and MDM Narrative:
88-year-old female presenting with shortness of breath and cough. Patient recently got out of rehab for back pain. She soon developed shortness of breath and cough. Her PCP placed her on doxycycline. Patient believes that the doxycycline is
causing her nausea. Because of this, she has been unable to eat or drink appropriately. This has been ongoing for the past 2 to 3 days. On exam, patient does have a productive cough. She does have rhonchorous breath sounds. Will obtain chest
x-ray. Will provide IV fluids
Patient states she recently had a negative COVID and flu test
Physical exam
General: Weak and frail
HEENT: protecting airway
Neck: appears supple
CV: No evidence of cyanosis
Resp: No accessory muscle use. Rhonchorous breath sounds
Abd: Non-distended
Extremities: No deformities. No leg edema
Neuro: alert
Psych: Normal affect
Skin: Intact
Problems Addressed including Acute and Chronic Conditions affecting care:
1. Productive cough
Acuity: acute
Prognosis: stable
Details: There is concern for outpatient antibiotic failure. Will obtain chest x-ray looking for evidence of pneumonia
2. Dehydration
Acuity: acute
Prognosis: stable
Details: Will provide IV fluids
Updates
Chest x-ray with moderate-sized right middle lobe pneumonia. Given the failure of doxycycline, will start vancomycin and Zosyn and admit
Differential Diagnosis (but not limited to): Influenza, pneumonia
Testing considered: D-dimer
Drug therapy (if applicable): OTC meds, please see d/c instruction regarding Rx drugs
Amount and/or Complexity of Data Reviewed
Clinical info obtained from: Patient
External data reviewed: N/A
Labs I independently reviewed (but not limited to): White blood cell count normal
Radiology: X-ray independently reviewed: Chest x-ray with moderate-sized pneumonia and right middle lobe
Pulse Ox: not hypoxic
EKG independently reviewed: Sinus rhythm, left axis, no STEMI
Real Estate Operations Manager: N/A
Critical Care: N/A
Risk of Complication:
Social Determinants of health: Good social support
Discussed with other providers: Hospitalist
Escalation of Care includes Admit/Obs: Given outpatient antibiotic failure for pneumonia, will start IV antibiotics and admit
Occasional wrong word or 'sound a like' substitutions may have occurred due to the inherent limitations of voice recognition software. Read the chart carefully and recognize, using context, where substitutions have occurred.
*Critical Care Note
Total Time (30-74mins, 75-104mins- exclusive of procedures): Not Applicable
ED Attending Note
-
Portions of this chart may have been created with voice recognition software.� Occasional wrong word or��sound alike� substitutions may have occurred due to the inherent limitations of voice recognition software.
Discharge Plan
Departure
Patient Disposition: Admit
Date of Disposition: 07/19/24
Time of Disposition: 12:39
Admit to: Med/Surg
Presentation/result/management discussed w/ accepting MD/DO: Hospitalist
Discharge Problem:
PNA (pneumonia), Hypokalemia
Interventions
Interventions:
*Risk Screen - Suicide Last Done: 07/19/24 09:59
*General Assessment Last Done: 07/19/24 09:59
*Neglect/Abuse Screening Last Done: 07/19/24 09:59
*ED- Fall Risk Assessment Last Done: 07/19/24 11:15
*ED COVID-19 Vaccine History Last Done: 07/19/24 10:59
RB-Jdmicb-Zsqoybqshk Assessment Last Done: 07/19/24 11:15
[2024-07-19] MEDS: NSS 1000 IV ×2 (11:59→15:18)
[2024-07-19 12:07] LABS: ALT (SGPT) 29 U/L (0-35); AST (SGOT) 31 U/L (14-36); Albumin 3.7 g/dl (3.5-5.0); Alkaline Phosphatase 210 U/L (38-126); Blood Urea Nitrogen 17 mg/dl (7-17); Calcium 9.6 mg/dl (8.4-10.2); Carbon Dioxide 29 mmol/L (22-30); Chloride 96 mmol/L (98-107); Glucose 111 mg/dl (70-99); Lipase 169 U/L (23-300); Potassium 3.1 mmol/L (3.5-5.1); Sodium 134 mmol/L (135-145); Total Bilirubin 0.8 mg/dl (0.2-1.3); Total Protein 6.3 g/dl (6.3-8.2); eGFR > 60.00
[2024-07-19] MEDS: MORPHINE SULFATE 2 MG IV (12:40)
--- NOTE | 2024-07-19 12:43 | HPS.HSE ---
Family Physician
-
Family Physician: Melissa Navarro
Chief Complaint
-
Nausea/Vomiting and Productive Cough
History of Present Illness
Patient is an 88-year-old female past medical history of paroxysmal atrial fibrillation, hypertension, hyperlipidemia, esophageal dysmotility, dysphagia and GERD who presents with productive cough, and nausea/vomiting. Patient reports persistent
cough for several weeks. About 5 days ago cough became productive of yellow mucus which prompted her to see her primary care provider on Friday, 3 days ago. At that time she was started on doxycycline. She reports over the weekend, mostly
yesterday she developed significant nausea, poor appetite and 1 episode of vomiting. She reports generalized weakness,and fatigue. Patient's son at bedside notes she has 'felt warm', but no recorded fevers, sweats or chills. Patient denies any
chest pains or shortness of breath.
Medical History
Past Medical History
Past Medical History: Reports Other
Additional Past Medical History:
Paroxysmal Atrial Fibrillation
Essential Hypertension
Hyperlipidemia
Esophageal Dysmotility
Dysphagia
GERD
Past Surgical History: Reports None
Social History
Tobacco: Non-smoker
Alcohol: None
Living: With Family
Family History
Family History: Not pertinent
Allergies / Home Medications
Allergies reflects when Allergies were last updated in [employer].
Home Medications with original date entered in [employer]
Allergy/Medication List:
Allergies
Allergy/AdvReac Type Severity Reaction Status Date / Time
levofloxacin [From Levaquin] Allergy Unknown Verified 07/19/24 09:59
Home Medications
amiodarone 100 mg tablet 100 mg PO HS Arrhythmia 06/30/23
aspirin 81 mg tablet,delayed release 81 mg PO DAILY Blood Clot Prevention/Tx 06/30/23
atorvastatin 10 mg tablet 10 mg PO HS High Cholesterol 06/30/23
hydralazine 10 mg tablet 5 mg PO DAILY Blood Pressure 06/30/23
hydralazine 10 mg tablet 5 mg PO HSPRN PRN blood pressure 06/30/23
acetaminophen 325 mg tablet (Tylenol) 650 mg PO TID 07/19/24
cholecalciferol (vitamin D3) 50 mcg (2,000 unit) capsule (Vitamin D3) 50 mcg PO DAILY 07/19/24
polyethylene glycol 3350 17 gram oral powder packet (Miralax) 8.5 g PO DAILY 07/19/24
Review of Systems
-
A 12 point ROS was completed and negative except as noted: Yes
Constitutional: Denies Fever
Respiratory: Reports See HPI
Cardiac: Denies Chest Pain
Abdomen/GI: Reports Nausea and Vomiting; Denies Abdominal Pain or Diarrhea
Physical Exam
Vital Signs
Vital Signs
Temp Pulse Resp BP Pulse Ox
98.4 F 72 22 175/99 96
07/19/24 09:59 07/19/24 12:15 07/19/24 12:15 07/19/24 12:00 07/19/24 12:15
Physical Exam
General: Comfortable and Conversant
HEENT: Anicteric and Moist mucous membranes
Respiratory: Rales (Right Upper Region) and Rhonchi (All garcía on the right)
Cardiac: S1/S2 and Regular Rhythm
GI: Soft and Non Tender
Rectal: Deferred by Provider
Musculoskeletal: No Clubbing, No Cyanosis and No Edema
Skin: Warm and Dry
Neuro: Awake, Alert, Oriented and Nonfocal/grossly intact
Psych: Calm
Laboratory Results
-
07/19/24 11:26
07/19/24 11:26
Laboratory Results
Total Bilirubin 0.8 mg/dl (0.2-1.3) 07/19/24 11:26
AST 31 U/L (14-36) 07/19/24 11:26
ALT 29 U/L (0-35) 07/19/24 11:26
Alkaline Phosphatase 210 U/L (38-126) H 07/19/24 11:26
Lipase 169 U/L (23-300) 07/19/24 11:26
Data Reviewed
-
Diagnostic Radiology: Report Reviewed by me
Lab Data: Labs Reviewed by me
Old Records: Reviewed
Impression/Plan
-
Pneumonia, failed outpatient antibiotics
-Continue ceftriaxone and doxycycline
-Continue Robitussin QID
-Attempt to obtain sputum culture
-Consult Speech Therapy for possible aspiration
Hypokalemia, secondary to vomiting
-Replace potassium
-Recheck labs in AM
Paroxysmal Atrial Fibrillation
-Continue amiodarone
-Patient is not on anticoagulation due to recurrent / severe epistaxis - Continue aspirin
Essential Hypertension
-Continue hydralazine
Hyperlipidemia
-Continue atorvastatin
Esophageal Dysmotility / Dysphagia
-Continue mechanical soft diet
Cachexia / Protein Calorie Malnutrition
-Consult Dietary
DVT prop: SC Heparin
Code Status: Full Code
[2024-07-19] MEDS: MORPHINE SULFATE IV (12:46)
[2024-07-19] MEDS: ZOFRAN 4 MG IV (12:46)
[2024-07-19] MEDS: ZOSYN 50 IV (12:47)
[2024-07-19] MEDS: KLOR-CON 20 MEQ PO ×2 (12:47→16:36)
--- NOTE | 2024-07-19 13:18 | W.PN.UPDATE ---
Update Note
Progress Note Update
This is an addendum to the H&P written by Dorita Echeverria on 07/19/2024.� Patient seen and examined independently with PA.
88-year-old female past medical history of paroxysmal atrial fibrillation not on anticoagulation due to epistaxis, dysphagia/esophageal dysmotility on salt mechanical diet, large hiatal hernia, chronic lower back pain, indeterminate vertebral
fracture, presenting with cough for few weeks started on doxycycline 3 days ago for increased production.� Nausea and 1 episode of vomiting.
Potassium 3.1.
Chest x-ray shows right middle lobe pneumonia.
Patient with community-acquired pneumonia of right middle lobe, possibly related to aspiration.� Also with hypokalemia secondary to vomiting.
Check COVID and influenza.
IV fluids.� Continue doxycycline and add ceftriaxone.
Replete potassium.
Check speech and swallow evaluation.�
[2024-07-19] MEDS: VANCOCIN 200 IV (13:30)
[2024-07-19 13:32] LABS: COVID-19 Antigen Negative (Negative)
[2024-07-19 13:42] LABS: Magnesium 1.4 mg/dl (1.6-2.3)
[2024-07-19] MEDS: PROTONIX IV 40 MG IV ×2 (15:21→21:37)
[2024-07-19] MEDS: ROCEPHIN 1000 MG IV (15:22)
[2024-07-19] MEDS: STERILE WATER FOR INJECTION 10 ML IV (15:22)
[2024-07-19] MEDS: ROBITUSSIN 200 MG PO ×3 (15:22→21:35)
[2024-07-19] MEDS: NSS (PRESERVATIVE FREE) 10 ML IV ×2 (15:31→21:37)
--- NOTE | 2024-07-19 16:51 | PTOTSP ---
Speech therapy completed Swallow evaluation. Patient presents with moderate pharyngeal dysphagia characterized by pharyngeal retention. History of food impaction, GERD and esophageal dysmotility. At this time recommend downgrade diet to IDDSI 4
puree and thin liquids. Pills crushed in puree. Consider GI consult. VSE may be indicated to further assess in light of CXR suspicous for pneumonia. ST to follow for further assessment and to monitor diet tolerance.
[2024-07-19] MEDS: APRESOLINE 5 MG PO (18:53)
[2024-07-19] MEDS: HEPARIN 5000 UNITS SC (20:42)
[2024-07-19] MEDS: VIBRAMYCIN 100 MG PO (20:43)
[2024-07-19] MEDS: LIPITOR 10 MG PO (20:44)
[2024-07-19] MEDS: PACERONE 100 MG PO (21:35)
[2024-07-20 06:00] VITALS: BMI 17.1
[2024-07-20 06:45] LABS: Hematocrit 38.5 % (37.0-47.0); Hemoglobin 13.5 g/dL (12.0-16.0); Mean Corp Hgb Conc. 35.1 g/dL (33.0-37.0); Mean Corpuscular Hgb 34.4 pg (27.0-31.0); Mean Corpuscular Volume 98.2 fL (81.0-99.0); Mean Platelet Volume 8.4 fL (7.4-10.4); Platelet Count 341 10^3/uL (130-400); Red Blood Cell Count 3.92 10^6/uL (4.20-5.40); Red Cell Dist. Width 12.1 % (11.5-14.5); White Blood Cell Count 6.8 10^3/uL (4.8-10.8)
[2024-07-20 07:30] VITALS: BP 171/104
[2024-07-20 07:34] LABS: Blood Urea Nitrogen 16 mg/dl (7-17); Calcium 8.8 mg/dl (8.4-10.2); Carbon Dioxide 25 mmol/L (22-30); Chloride 102 mmol/L (98-107); Estimated Creatinine Clearance 37 ml/min; Glucose 96 mg/dl (70-99); Magnesium 1.4 mg/dl (1.6-2.3); Potassium 3.3 mmol/L (3.5-5.1); Sodium 136 mmol/L (135-145); eGFR > 60.00
[2024-07-20] MEDS: VITAMIN D3 (cholecalciferol) 50 MCG PO (07:58)
[2024-07-20] MEDS: ASPIR LOW (ENTERIC COATED) 81 MG PO (07:58)
[2024-07-20] MEDS: VIBRAMYCIN 100 MG PO ×2 (07:58→20:05)
[2024-07-20] MEDS: APRESOLINE 5 MG PO (07:58)
[2024-07-20] MEDS: PROTONIX IV 40 MG IV ×2 (07:59→20:05)
[2024-07-20] MEDS: ROBITUSSIN 200 MG PO ×4 (07:59→21:07)
[2024-07-20] MEDS: HEPARIN 5000 UNITS SC (07:59)
[2024-07-20] MEDS: NSS (PRESERVATIVE FREE) 10 ML IV ×2 (07:59→20:04)
[2024-07-20] MEDS: MIRALAX 8.5 GRAMS PO (08:00)
--- NOTE | 2024-07-20 09:00 | W.PN.HOSP.TC ---
Today's Communication/Plan
-
see bold
Assessment / Plan
Assessment / Plan
88-year-old female past medical history of paroxysmal atrial fibrillation, hypertension, hyperlipidemia, esophageal dysmotility, dysphagia and GERD who presents with productive cough, and nausea/vomiting. Patient reports persistent cough for
several weeks. About 5 days ago cough became productive of yellow mucus which prompted her to see her primary care provider on Friday, 3 days ago. At that time she was started on doxycycline. She reports over the weekend, mostly yesterday she
developed significant nausea, poor appetite and 1 episode of vomiting. She reports generalized weakness,and fatigue.
#Right middle lobe pneumonia, concerning for aspiration
Change IV antibiotics to Zosyn, continue doxycycline
SPL following, patient requesting pur�ed diet
#Esophageal dysmotility
#Dysphagia
SPL following, patient requesting pur�ed diet
#Essential hypertension
Blood pressure elevated and uncontrolled
She is on hydralazine 5 mg daily
Start lisinopril 10 mg daily, increase hydralazine to 25 mg 3 times daily with hold parameters
#Hypokalemia
#Hypomagnesemia
Replete
#GERD
Continue PPI
#Nausea
Promethazine as needed
#QTc prolongation
Avoid Zofran and other QTc prolonging agents
#Underweight
Encourage oral intake
#Paroxysmal atrial fibrillation
Not on anticoagulation due to history of severe recurrent epistaxis
Continue amiodarone, aspirin
DVT prophylaxis�subcu Lovenox
Full code
Total time spent to see the patient on the floor, examine the patient, review data and lab results, discuss treatment plan with patient, nursing staff around 35 minutes.
Physical Exam
General: Frail, elderly, no acute distress
HEENT: Normocephalic, Atraumatic, EOMI, MMM
Respiratory: Clear to Auscultation bilaterally
Cardiac: Normal S1/S2, Regular Rate and Rhythm
GI: Soft, Nontender, Nondistended, Normal Bowel Sounds
Extremities: No Clubbing, Cyanosis, or Edema
Neuro: Nonfocal/Grossly Intact
Psych: Calm, Cooperative
Derm: No Visible lesions
Anticipated Discharge: 24 - 48 hours
Subjective/Interval History
-
Date of Service: July 20, 2024
Patient complains of nausea. No vomiting. She continues to cough. No fever, no shortness of breath.
Objective Data
-
Labs:
Laboratory Results
07/20/24
06:26
WBC 6.8
Hgb 13.5
Hct 38.5
Plt Count 341
Sodium 136
Potassium 3.3 L
Chloride 102
Carbon Dioxide 25
BUN 16
Creatinine 0.7
Glucose 96
Calcium 8.8
Vital Signs:
Vital Signs
Temp Pulse Resp BP Pulse Ox
98.6 F 75 18 171/104 93
07/20/24 07:30 07/20/24 07:58 07/20/24 07:30 07/20/24 07:58 07/20/24 07:30
I&O
07/19/24 07/20/24 07/21/24
06:59 06:59 06:59
Intake Total 560 / 560
Balance 560 / 560
[2024-07-20] MEDS: ZOSYN 50 IV ×3 (09:48→21:09)
[2024-07-20] MEDS: KLOR-CON 40 MEQ PO (10:29)
[2024-07-20] MEDS: ZESTRIL 10 MG PO (10:29)
[2024-07-20] MEDS: MAGNESIUM SULFATE 50 IV (10:32)
[2024-07-20 12:40] VITALS: BP 160/95
[2024-07-20 13:34] VITALS: BP 170/94; PULSE 71; O2SAT 96
[2024-07-20] MEDS: PHENERGAN 25 MG PO (13:40)
[2024-07-20 13:41] VITALS: BMI 17.1
[2024-07-20 16:00] VITALS: BP 146/87
[2024-07-20] MEDS: LOVENOX 30 MG SC (17:03)
--- NOTE | 2024-07-20 18:07 | CM ---
Placed a call to patient's son to obtain information for assessment. He stated that patient lives with him in a two story house with two steps to enter. She needs assistance with bathing, dressing, personal care and ADLs. She uses a walker. He does
the cooking, cleaning, lay health advocate and laundry. He transports her to her appointments and takes her shopping. He denied any VN. He stated that patient has been to a SNF and was recently discharged from [facility].
Patient has a prescription plan and uses, [facility] in [place] for all of her medications.
Her PCP is, Melissa Navarro.
Patient's son sounded a little forgetful at times. RN stated that Patient is oriented x3. Met with patient who confirmed everything above is true. She stated that she did not want to go back to a SNF and would like to return home when cleared for
discharge.
Plan: Case management will continue to follow and assist with discharge planning. Home, will watch for VN needs.
[2024-07-20] MEDS: PACERONE 100 MG PO (21:07)
[2024-07-20] MEDS: LIPITOR 10 MG PO (21:08)
[2024-07-20 23:00] VITALS: BP 140/75
[2024-07-21] MEDS: ZOSYN 50 IV ×4 (04:26→21:58)
[2024-07-21 06:00] VITALS: BMI 17.1
[2024-07-21 07:18] VITALS: BP 140/86
[2024-07-21 07:29] LABS: Magnesium 1.9 mg/dl (1.6-2.3)
[2024-07-21] MEDS: ASPIR LOW (ENTERIC COATED) 81 MG PO (08:41)
[2024-07-21] MEDS: ZESTRIL 10 MG PO (08:41)
[2024-07-21] MEDS: ROBITUSSIN 200 MG PO ×4 (08:41→21:57)
[2024-07-21] MEDS: VIBRAMYCIN 100 MG PO ×2 (08:41→21:57)
[2024-07-21] MEDS: PROTONIX IV 40 MG IV ×2 (08:43→21:57)
[2024-07-21] MEDS: MIRALAX PO ×2 (08:45→09:54)
[2024-07-21] MEDS: NSS (PRESERVATIVE FREE) 10 ML IV ×2 (08:45→21:56)
[2024-07-21] MEDS: VITAMIN D3 (cholecalciferol) 50 MCG PO (08:46)
--- NOTE | 2024-07-21 09:31 | W.PN.HOSP.TC ---
Today's Communication/Plan
-
Possible discharge tomorrow
Assessment / Plan
Assessment / Plan
88-year-old female past medical history of paroxysmal atrial fibrillation, hypertension, hyperlipidemia, esophageal dysmotility, dysphagia and GERD who presents with productive cough, and nausea/vomiting. Patient reports persistent cough for
several weeks. About 5 days ago cough became productive of yellow mucus which prompted her to see her primary care provider on Friday, 3 days ago. At that time she was started on doxycycline. She reports over the weekend, mostly yesterday she
developed significant nausea, poor appetite and 1 episode of vomiting. She reports generalized weakness,and fatigue.
#Right middle lobe pneumonia, concerning for aspiration
She is not short of breath or hypoxic
Continue Zosyn and doxycycline
Likely for discharge tomorrow
#Esophageal dysmotility
#Dysphagia
#Severe protein calorie Malnutrition
SPL following, patient requesting pur�ed diet, which she is tolerating
Encourage oral intake
#Essential hypertension
Blood pressure elevated and uncontrolled
She is on hydralazine 5 mg daily at home, which is not enough
Started on lisinopril 10 mg daily here, which has been working well
Reduce lisinopril to 5 mg daily
#Hypokalemia
#Hypomagnesemia
Repleted and resolved
#GERD
Continue PPI
#Nausea
Promethazine as needed
#QTc prolongation
Avoid Zofran and other QTc prolonging agents
#Underweight
Encourage oral intake
#Paroxysmal atrial fibrillation
Not on anticoagulation due to history of severe recurrent epistaxis
Continue amiodarone, aspirin
DVT prophylaxis�subcu Lovenox
Full code
Total time spent to see the patient on the floor, examine the patient, review data and lab results, discuss treatment plan with patient, nursing staff around 40 minutes.
Physical Exam
General: Frail, elderly, no acute distress
HEENT: Normocephalic, Atraumatic, EOMI, MMM
Respiratory: Clear to Auscultation bilaterally
Cardiac: Normal S1/S2, Regular Rate and Rhythm
GI: Soft, Nontender, Nondistended, Normal Bowel Sounds
Extremities: No Clubbing, Cyanosis, or Edema
Neuro: Nonfocal/Grossly Intact
Psych: Calm, Cooperative
Derm: No Visible lesions
Anticipated Discharge: Within 24 hours
Subjective/Interval History
-
Date of Service: July 21, 2024
Patient continues to cough. She denies shortness of breath. No fever, no vomiting.
Objective Data
-
Vital Signs:
Vital Signs
Temp Pulse Resp BP Pulse Ox
99.1 F 73 14 140/86 94
07/21/24 07:18 07/21/24 08:43 07/21/24 07:18 07/21/24 08:43 07/21/24 07:18
I&O
07/20/24 07/21/24 07/22/24
06:59 06:59 06:59
Intake Total 560 / 560 480 / 480 480 / 480
Balance 560 / 560 480 / 480 480 / 480
--- NOTE | 2024-07-21 12:15 | PN.CDI ---
CDI
- -
CDI:
Physician Documentation Request
Admit Date: 07/19/24 13:09
Dear Doctor Do,
07/19 H&P states ' Cachexia / Protein Calorie Malnutrition'
07/20 Hospitalist note states 'underweight'
07/20 RD note and assessment 'underweight. Assessment subcutaneous loss over rib cage - moderate. Orbital -moderate. Muscle loss over clavicle-moderate, Temporal- moderate. During visit RD observed pt with temporal wasting, orbital area sunken in,
apparent ribs, fat loss over tricepts, protrusion of clavical. With <75% estimated needs > 1 month and observed muscle and fast wasting pt meets AND/ASPEN criteria for severe protein calorie malnutrition of chronic illness'
Based on the above information and your assessment, which of the following most accurately represents the patient's nutritional status?
Severe protein calorie Malnutrition
Other (please specify)Unable to determine
[place] Criteria ([facility] Hospitalist 2017)
2 or more criteria must be present for either
non severe or severe malnutrition
Note that the criteria differs related to the
presence of an acute or chronic illness
Acute Illness Chronic Illness
Energy Intake Non Severe: <75% for >7 days Non Severe: <75% for >1 month
Severe: <50% for >5 days Severe: <75% for >1 month
Weight Loss Non Severe: 1-2% over 1 week Non Severe: 5% over 1 month
5% over 1 month 7.5% over 3 months
7.5% over 3 months 10% over 6 months
1 year N/A 20% over 1 year
Severe: >2% over 1 week Severe: >5% over 1 month
>5% over 1 month >7.5% over 3 months
>7.5% over 3 months >10% over 6 months
1 year N/A >20% over 1 year
Body Fat Non Severe: Mild Decrease Non Severe: Mild Loss
Severe: Moderate Decrease Severe: Severe Loss
Muscle Mass Non Severe: Mild Decrease Non Severe: Mild Loss
Severe: Moderate Decrease Severe: Severe Loss
Fluid Accumulation Non Severe: Mild Accumulation Non Severe: Mild Accumulation
Severe: Moderate to severe Severe: Moderate to severe
accumulation accumulation
Reduced Manufacturing Engineering Intern Strength Non Severe: N/A Non Severe: N/A
Severe: Measurably reduced Severe: Measurably reduced
Use of terms such as suspected, likely, concern for, or probable (associated with a specific diagnosis that is being evaluated, monitored, or treated as if it exists) are acceptable and can be coded in the inpatient setting, when documented at the
time of discharge.
Thank you,
Gali Mora RN, BSN
CDI Specialist
tiger text
Please use your independent medical judgment in providing your response.
[2024-07-21] MEDS: PHENERGAN 25 MG PO (13:31)
[2024-07-21 15:09] VITALS: BP 99/64
[2024-07-21 16:27] VITALS: BP 139/78
[2024-07-21] MEDS: LOVENOX 30 MG SC (17:18)
[2024-07-21] MEDS: LIPITOR 10 MG PO (21:57)
[2024-07-21] MEDS: PACERONE 100 MG PO (21:57)
[2024-07-21] MEDS: MYLICON 80 MG PO (22:52)
[2024-07-21 23:10] VITALS: BP 133/86
[2024-07-22] MEDS: ZOSYN 50 IV ×4 (04:52→23:06)
[2024-07-22 06:00] VITALS: BMI 16.8
--- NOTE | 2024-07-22 07:28 | W.PN.HOSP.TC ---
Today's Communication/Plan
-
Plan for discharge tomorrow
Assessment / Plan
Assessment / Plan
88-year-old female past medical history of paroxysmal atrial fibrillation, hypertension, hyperlipidemia, esophageal dysmotility, dysphagia and GERD who presents with productive cough, and nausea/vomiting. Patient reports persistent cough for
several weeks. About 5 days ago cough became productive of yellow mucus which prompted her to see her primary care provider on Friday, 3 days ago. At that time she was started on doxycycline. She reports over the weekend, mostly yesterday she
developed significant nausea, poor appetite and 1 episode of vomiting. She reports generalized weakness,and fatigue.
#Right middle lobe pneumonia, concerning for aspiration
She is not short of breath or hypoxic
Change Zosyn to Augmentin, continue doxycycline to complete a 5-day course
Likely for discharge tomorrow, PT/OT no needs
#Esophageal dysmotility
#Dysphagia
#Severe protein calorie Malnutrition
SPL following, patient requesting pur�ed diet, which she is tolerating
Encourage oral intake
#Essential hypertension
Blood pressure elevated and uncontrolled
She is on hydralazine 5 mg daily at home, which is not enough
Started on lisinopril 10 mg daily here, which has been working well
Reduce lisinopril to 5 mg daily
#Hypokalemia
#Hypomagnesemia
Replete prn
#GERD
Continue PPI
#Nausea
Promethazine as needed
#QTc prolongation
Avoid Zofran and other QTc prolonging agents
#Underweight
Encourage oral intake
#Paroxysmal atrial fibrillation
Not on anticoagulation due to history of severe recurrent epistaxis
Continue amiodarone, aspirin
DVT prophylaxis�subcu Lovenox
Full code
Total time spent to see the patient on the floor, examine the patient, review data and lab results, discuss treatment plan with patient, nursing staff around 40 minutes.
Physical Exam
General: Frail, elderly, no acute distress
HEENT: Normocephalic, Atraumatic, EOMI, MMM
Respiratory: Clear to Auscultation bilaterally
Cardiac: Normal S1/S2, Regular Rate and Rhythm
GI: Soft, Nontender, Nondistended, Normal Bowel Sounds
Extremities: No Clubbing, Cyanosis, or Edema
Neuro: Nonfocal/Grossly Intact
Psych: Calm, Cooperative
Anticipated Discharge: Within 24 hours
Subjective/Interval History
-
Date of Service: July 22, 2024
Patient reports feeling nauseous. She also reports loose stools. Continues to cough. No fever, no vomiting. No chest pain, no shortness of breath.
Objective Data
-
Labs:
Laboratory Results
07/22/24
06:47
Sodium Pending
Potassium Pending
Chloride Pending
Carbon Dioxide Pending
BUN Pending
Creatinine Pending
Glucose Pending
Calcium Pending
Vital Signs:
Vital Signs
Temp Pulse Resp BP Pulse Ox
98.2 F 72 17 133/86 92
07/21/24 23:10 07/21/24 23:10 07/21/24 23:10 07/21/24 23:10 07/21/24 23:10
I&O
07/21/24 07/22/24 07/23/24
06:59 06:59 06:59
Intake Total 480 / 480 1040 / 1040
Balance 480 / 480 1040 / 1040
[2024-07-22 07:33] VITALS: BP 170/99
[2024-07-22 07:42] VITALS: BP 167/95
[2024-07-22 07:43] LABS: Blood Urea Nitrogen 24 mg/dl (7-17); Calcium 8.9 mg/dl (8.4-10.2); Carbon Dioxide 29 mmol/L (22-30); Chloride 99 mmol/L (98-107); Estimated Creatinine Clearance 27 ml/min; Glucose 97 mg/dl (70-99); Magnesium 1.7 mg/dl (1.6-2.3); Sodium 137 mmol/L (135-145); eGFR > 60.00
[2024-07-22] MEDS: MIRALAX PO (08:50)
[2024-07-22] MEDS: VIBRAMYCIN 100 MG PO ×2 (08:55→21:27)
[2024-07-22] MEDS: ASPIR LOW (ENTERIC COATED) 81 MG PO (08:56)
[2024-07-22] MEDS: ZESTRIL 5 MG PO (08:56)
[2024-07-22] MEDS: VITAMIN D3 (cholecalciferol) 50 MCG PO (08:56)
[2024-07-22] MEDS: PROTONIX IV 40 MG IV ×2 (09:00→21:26)
[2024-07-22] MEDS: NSS (PRESERVATIVE FREE) 10 ML IV ×2 (09:01→21:27)
[2024-07-22] MEDS: ROBITUSSIN 200 MG PO ×4 (09:02→21:32)
[2024-07-22] MEDS: PHENERGAN 25 MG PO (09:05)
[2024-07-22] MEDS: KLOR-CON 40 MEQ PO ×2 (14:21→21:31)
[2024-07-22 15:12] VITALS: BP 115/67
[2024-07-22] MEDS: LOVENOX 30 MG SC (17:37)
[2024-07-22] MEDS: LIPITOR 10 MG PO (21:27)
[2024-07-22] MEDS: PACERONE 100 MG PO (21:27)
[2024-07-22 23:56] VITALS: BP 139/80
[2024-07-23] MEDS: ZOSYN 50 IV ×2 (04:30→09:45)
[2024-07-23 05:47] VITALS: BMI 17.3
[2024-07-23] MEDS: ROBITUSSIN 200 MG PO ×2 (07:53→12:02)
[2024-07-23] MEDS: PHENERGAN 25 MG PO (07:54)
[2024-07-23] MEDS: VIBRAMYCIN 100 MG PO (07:54)
[2024-07-23] MEDS: NSS (PRESERVATIVE FREE) 10 ML IV (07:54)
[2024-07-23] MEDS: PROTONIX IV 40 MG IV (07:54)
[2024-07-23] MEDS: ASPIR LOW (ENTERIC COATED) 81 MG PO (07:55)
[2024-07-23] MEDS: VITAMIN D3 (cholecalciferol) 50 MCG PO (07:55)
[2024-07-23] MEDS: ZESTRIL 5 MG PO (07:55)
[2024-07-23 08:00] VITALS: BP 177/103
[2024-07-23] MEDS: MIRALAX PO (08:04)
[2024-07-23 08:23] LABS: Blood Urea Nitrogen 28 mg/dl (7-17); Calcium 9.1 mg/dl (8.4-10.2); Carbon Dioxide 27 mmol/L (22-30); Chloride 103 mmol/L (98-107); Estimated Creatinine Clearance 32 ml/min; Glucose 93 mg/dl (70-99); Magnesium 1.7 mg/dl (1.6-2.3); Potassium 3.7 mmol/L (3.5-5.1); Sodium 137 mmol/L (135-145); eGFR > 60.00
--- NOTE | 2024-07-23 09:34 | W.PN.HOSP.TC ---
Today's Communication/Plan
-
Discharge today
Assessment / Plan
Assessment / Plan
88-year-old female past medical history of paroxysmal atrial fibrillation, hypertension, hyperlipidemia, esophageal dysmotility, dysphagia and GERD who presents with productive cough, and nausea/vomiting. Patient reports persistent cough for
several weeks. About 5 days ago cough became productive of yellow mucus which prompted her to see her primary care provider on Friday, 3 days ago. At that time she was started on doxycycline. She reports over the weekend, mostly yesterday she
developed significant nausea, poor appetite and 1 episode of vomiting. She reports generalized weakness,and fatigue.
#Right middle lobe pneumonia, concerning for aspiration
She is not short of breath or hypoxic
Currently on IV Zosyn, medically stable for discharge on Augmentin to complete a 5-day course
PT/OT no needs
#Esophageal dysmotility
#Dysphagia
#Severe protein calorie Malnutrition
SPL following, cleared by SPL for regular diet with thin liquids, patient requesting pur�ed diet, which she is tolerating
Encourage oral intake
#Essential hypertension
Blood pressure elevated and uncontrolled
She is on hydralazine 5 mg daily at home, which is not enough
Started on lisinopril 10 mg daily here, which has been working well
Reduced lisinopril to 5 mg daily -patient will be discharged on lisinopril 5 mg daily, discontinue hydralazine
#Hypokalemia
#Hypomagnesemia
Repleted and resolved
#GERD
Continue PPI
#Nausea
Promethazine as needed
#QTc prolongation
Avoid Zofran and other QTc prolonging agents
#Underweight
Encourage oral intake
#Paroxysmal atrial fibrillation
Not on anticoagulation due to history of severe recurrent epistaxis
Continue amiodarone, aspirin
DVT prophylaxis�subcu Lovenox
Full code
Physical Exam
General: Frail, elderly, no acute distress
HEENT: Normocephalic, Atraumatic, EOMI, MMM
Respiratory: Clear to Auscultation bilaterally
Cardiac: Normal S1/S2, Regular Rate and Rhythm
GI: Soft, Nontender, Nondistended, Normal Bowel Sounds
Extremities: No Clubbing, Cyanosis, or Edema
Neuro: Nonfocal/Grossly Intact
Psych: Calm, Cooperative
Anticipated Discharge: Today
Subjective/Interval History
-
Date of Service: July 23, 2024
Patient reports feeling nauseated from the antibiotics. No vomiting. Her cough is improved. Denies shortness of breath. No fever.
Objective Data
-
Labs:
Laboratory Results
07/23/24
07:10
Sodium 137
Potassium 3.7
Chloride 103
Carbon Dioxide 27
BUN 28 H
Creatinine 0.8
Glucose 93
Calcium 9.1
Vital Signs:
Vital Signs
Temp Pulse Resp BP Pulse Ox
98.1 F 78 20 177/103 95
07/23/24 08:00 07/23/24 08:00 07/23/24 08:00 07/23/24 08:00 07/23/24 08:00
I&O
07/22/24 07/23/24 07/24/24
06:59 06:59 06:59
Intake Total 1040 / 1040 580 / 580
Balance 1040 / 1040 580 / 580
--- NOTE | 2024-07-23 11:12 | W.DCSUMMARY ---
Discharge Summary
Discharge Data
Date of Admission: 07/19/24
Date of Discharge: 07/23/24
-
Pending Results: No
Hospital Course
Discharge diagnosis:
Right middle lobe pneumonia, probable aspiration
Nausea
QTc prolongation
Esophageal dysmotility
Dysphagia
Severe protein calorie malnutrition
Labile hypertension
Paroxysmal atrial fibrillation
Hypokalemia
Hypomagnesemia
Gastroesophageal reflux disease
CXR:
1. Limited by rotation. Apparent abnormal airspace opacity over the right lower lung which is at least somewhat suspicious for right middle lobe pneumonia.
2. Question interval increase in cardiac size versus projectional artifact. As warranted, could be further evaluated with follow-up exam with PA projection.
Hospital course:
88-year-old female past medical history of paroxysmal atrial fibrillation, hypertension, hyperlipidemia, esophageal dysmotility, dysphagia and GERD who presented to the ED with a productive cough and vomiting, and had a chest x-ray that was
concerning for right middle lobe pneumonia. Patient was admitted for probable aspiration pneumonia. She was treated with IV Zosyn. She was not short of breath, she was not hypoxic. Her nausea continued in the hospital. She had QTc prolongation.
She was treated with promethazine. She was seen in conjunction with speech pathology. Speech pathology recommends regular diet with thin liquids, however patient requested a pur�ed diet. She tolerated her diet.
Patient had hypomagnesemia and hypokalemia. This was repleted and resolved.
Patient has labile hypertension, and her blood pressure was uncontrolled. She is on hydralazine 5 mg daily, and 5 mg as needed. This was switched to lisinopril 5 mg daily, and she will be discharged on this.
Patient's multiple medical problems have been optimized. She is medically stable for discharge on Augmentin to complete a 5-day course of antibiotics. She needs to follow-up with her primary care doctor in 1 week.
Disposition: Home self care
Discharge planning: Required 41 minutes
Discharge Plan
-
Patient Disposition: Home with Home Care
Discharge Diagnosis/Procedures: Aspiration pneumonia, dysphagia, esophageal dysmotility, hypertension
Condition: Good
Diet: Grind all food
Activity: As tolerated
Driving Restrictions: As prior to admission
Activity Restrictions/Additional Instructions:
Continue Augmentin twice a day for 1 more day.
Recommend you taking promethazine 25 mg 1 hour before you take your Augmentin.
You can take [id number] cough medicine, like Zarbee's with honey as needed for your cough.
Your blood pressure is uncontrolled. Your hydralazine was switched to lisinopril 5 mg daily.
Follow-up with your primary care physician in 1 week.
Referrals:
Melissa Navarro PA-C [Family Provider] - in one week
Prescriptions:
New
promethazine 25 mg Tablet
25 mg PO Q6HPRN PRN (Reason: n/v) Qty: 30 0RF
lisinopril 5 mg Tablet
5 mg PO DAILY Qty: 30 0RF
amoxicillin-pot clavulanate 875-125 mg tablet
1 tab PO BID 1 Days Qty: 2 0RF
Continued
atorvastatin 10 mg Tablet
10 mg PO HS
aspirin 81 mg Tablet,Delayed Release (Dr/Ec)
81 mg PO DAILY
amiodarone 100 mg Tablet
100 mg PO HS
acetaminophen [Tylenol] 325 mg Tablet
650 mg PO TID
polyethylene glycol 3350 [Miralax] 17 gram Powder In Packet
8.5 g PO DAILY
cholecalciferol (vitamin D3) [Vitamin D3] 50 mcg (2,000 unit) Capsule
50 mcg PO DAILY
Discontinued
hydralazine 10 mg Tablet
5 mg PO DAILY
hydralazine 10 mg Tablet
5 mg PO HSPRN PRN (Reason: blood pressure)
Discharge Orders:
Discharge Patient (As Directed); Ordered 07/23/24
Ordered By: Salazar Chopra
Discharge Date and Time
Discharge Date/Time: 07/23/24 14:15
Print Language: SLOVENIAN
[2024-07-23 14:13] VITALS: BP 159/101
== END 2024-07-23 14:15 | disposition home or self-care (01) | DRG 177 ==
LOC: 3 WEST ACU 13:09
PROVIDERS: Physician Assistant Medical; ADMITTING PHYSICIAN Hospitalist; ATTENDING PHYSICIAN Family Medicine; EMERGENCY PHYSICIAN Student in an Organized Health Care Education/Training Program; FAMILY PHYSICIAN Physician Assistant Medical
DX: J69.0 Pneumonitis due to inhalation of food and vomit (principal); E43 Unspecified severe protein-calorie malnutrition; I42.8 Other cardiomyopathies; Z68.1 Body mass index [BMI] 19.9 or less, adult; R64 Cachexia; J18.9 Pneumonia, unspecified organism; E11.9 Type 2 diabetes mellitus without complications; E78.00 Pure hypercholesterolemia, unspecified; K22.4 Dyskinesia of esophagus; K21.9 Gastro-esophageal reflux disease without esophagitis; R11.2 Nausea with vomiting, unspecified; E86.0 Dehydration; E83.42 Hypomagnesemia; E87.6 Hypokalemia; I10 Essential (primary) hypertension; I48.0 Paroxysmal atrial fibrillation; I25.2 Old myocardial infarction; Z85.828 Personal history of other malignant neoplasm of skin; Z87.891 Personal history of nicotine dependence; Z11.52 Encounter for screening for COVID-19; Z88.1 Allergy status to other antibiotic agents
CPT/HCPCS: 71046; 80048; 80053; 83690; 83735; 85025; 85027; 87205; 87502; 87811; 92526; 92610; 93005; 96365; 96375; 97162; 97166; 99285

== ENCOUNTER 2024-07-25 18:46 | Inpatient (IN) | payer OTHER, SELFPAY ==
[2024-07-25] VITALS (24 sets, daily range): BP systolic 83–143; BP diastolic 61–103; BMI 18.3; BMI 16.5
--- NOTE | 2024-07-25 14:25 | ED.GENMED ---
History of Present Illness
General
Chief Complaint: Weakness
Time Seen by Provider: 07/25/24 14:25
History of Present Illness
History of Present Illness:
TIME OF INITIAL ENCOUNTER: 2:30 PM
HPI: The patient discharge from the hospital 2 days ago. At that time she was treated for right middle lobe pneumonia that was felt to be related to aspiration. She was also hypokalemic and hypomagnesemic. She has been having diarrhea more
recently that she feels is related to antibiotic use. She reportedly fell very early yesterday morning but is not sure why she fell but does report that she has been very weak. She does not think she struck her head but is not certain. Son thinks
that she may have been on the ground for several hours.
EXAM:
GENERAL: The patient appears very weak and debilitated, initial blood pressure low however on repeat after fluids she was normotensive
HEENT: Dry oral mucosa, poor dentition
CARDIOVASCULAR: No murmurs, normal heart rate, regular rhythm, there is moderate tenderness to the left anterior chest wall and over the sternum, there is no right-sided tenderness
PULMONARY: Some decreased inspiratory effort, decreased breath sounds equally
ABDOMEN: Soft with no peritoneal signs, no tenderness
NEUROLOGIC: Fair strength all extremities, no coordination deficits
PSYCHIATRIC: Reasonable insight and judgement
EXTREMITIES: Nontender, no edema, moves all extremities equally
SKIN: No rash, no lesions
NUMBER AND COMPLEXITY OF PROBLEMS ADDRESSED AT THE ENCOUNTER
� Chronic conditions affecting care: Atrial fibrillation and has had several cardioversions, GERD, high blood pressure, hyperlipidemia
� Acute Exacerbation and/or Progression of Chronic Illness: This is an acute problem
� Differential Diagnosis includes: Pneumonia, rhabdomyolysis, ABDI, dehydration
AMOUNT AND/OR COMPLEXITY OF DATA TO BE REVIEWED AND ANALYZED
� I performed an independent evaluation of and my interpretation is:
EKG: Sinus 91, left bundle branch block with associated ST elevation in V1 through V2 however this is unchanged from 07/20/2024
CT: The CAT scan of the brain shows no acute abnormality; I personally reviewed CT imaging of the chest
X-rays:
Laboratory Studies: Cath urine shows no sign of infection, white count 15.1, hemoglobin 13.4, potassium 3.7, magnesium 1.7, creatinine 1.7, CK 128
Other:
� Review of other/old records: I reviewed the discharge summary from 2 days ago indicating the patient was treated with Zosyn for aspiration pneumonia
� Clinical information was obtained by an independent historian: I spoke to the son at bedside
� Prescriptions/Medications Considered but not given:
� Further testing considered but not performed:
RISK OF COMPLICATIONS AND/OR MORBIDITY OR MORTALITY OF PATIENT MANAGEMENT
� Social determinants of health affecting care: Lives at home with son
� Discussion with other providers: Hospitalist for admission
� Escalation of care including admission/observation vs risk of discharge considered: The patient has new leukocytosis with white count of 15.1. I am also concerned about dehydration as she has been feeling weaker and has been
having some diarrhea. Her creatinine is 1.7 which is newly elevated. Urinalysis shows no sign of infection. The CAT scan of the chest suggests atelectasis however I am concerned about pneumonia as she has new leukocytosis. Will start on Maxipime
and vancomycin. I also informed patient of the abnormality to the ribs and sternum which likely are subacute. The patient initially did not want anything for pain as it is not bad when she is not moving. However on reassessment we will give
Tylenol. No evidence of rhabdomyolysis based on CK. She was given IV fluids. I have also ordered stool studies.
ANY OTHER UPDATES:
Past History
Past History
ED Past Medical History: Arrthythmia (Atrial fib), Cancer (Basal cell), HTN, Hypercholesterolemia, NIDDM, ND, Other (Cardiomyopathy, abnormal LFTs, vent dependent respiratory failure, aspiration pneumonia, Sweet syndrome) and Other (Epistaxis,
thrombocytopenia, anemia)
ED Past Surgical History: Cardiac (Cardioversion 2010, JONES) and Other (Mohs surgery right face, bilateral cataract extractions)
Social History
Tobacco: Former smoker
Alcohol: Daily (wine 1 glass)
Personal:
Living: with family
Employment: Retired
Family History
Family History: Other (Reviewed and noncontributory)
Phy Exam
Physical Exam
Physical Exam:
See HPI
Course
Orders/Labs/Results
Orders:
Orders
07/25/24 14:27
0.9% Sodium Chloride 500 ml [Nss] 500 ml IV BOLUS
07/25/24 14:34
CT Chest W/o Iv Contrast Urgent
Comment:
Reason For Exam: trauma L pain severe kyphosis
CT Head W/o Iv Contrast Urgent
Comment:
Reason For Exam: trauma
07/25/24 14:39
Complete Blood Count/With Diff Urgent
Comprehensive Metabolic Panel Urgent
Creatine Phosphokinase Urgent
Comment: ADD ON
Magnesium Urgent
07/25/24 15:41
Urinalysis Reflex To Culture Urgent
Date Specimen was Collected: 07/25/24
Time Specimen was Collected: 15:19
Urine Microscopic Reflex Cult Urgent
07/25/24 16:21
Add On- LAB Urgent
Tests Added?: ck
07/25/24 16:54
Cefepime HCl [Maxipime] 1,000 mg IV NOW STA
07/25/24 16:57
Vancomycin 1 Gram/200 ml [Vancocin] 1 gram in 200 ml IV NOW
07/25/24 17:00
Norovirus by PCR Urgent
ESME Source: Feces/Stool
Specimen Description:
STOOL [C difficile Antigen & Toxins] Urgent
ESME Source: Feces/Stool
Specimen Description:
Stool Culture Urgent
ESME Source: Feces/Stool
Specimen Description:
07/25/24 17:11
Acetaminophen [Tylenol] 1,000 mg PO NOW STA
07/25/24 17:12
Electrocardiogram (*1) Urgent
Reason for Study: Chest Pain
EKG- Treatment ONCE
Abnormal Lab Results
07/25/24 07/25/24
14:39 15:41
WBC 15.1 H 10^3/uL
(4.8-10.8)
RBC 3.93 L 10^6/uL
(4.20-5.40)
MCV 100.8 H fL
(81.0-99.0)
MCH 34.1 H pg
(27.0-31.0)
Abs Immat Gran (auto) 0.2 H 10^3/uL
(0-0.05)
Absolute Neuts (auto) 12.8 H 10^3/uL
(1.4-6.5)
Absolute Lymphs (auto) 1.1 L 10^3/uL
(1.2-3.4)
Absolute Monos (auto) 1.0 H 10^3/uL
(0.1-0.6)
Immature Gran % 1.3 H %
(0-0.5)
Neutrophils % 84.5 H %
(42.2-75.2)
Lymphocytes % 7.4 L %
(20.5-51.1)
BUN 49 H mg/dl
(7-17)
Creatinine 1.7 H mg/dL
(0.6-1.0)
Glucose 188 H mg/dl
(70-99)
Alkaline Phosphatase 179 H U/L
(38-126)
Total Protein 5.7 L g/dl
(6.3-8.2)
Albumin 3.3 L g/dl
(3.5-5.0)
Urine Albumin (Reflex) 1+ A
(Neg - Trace)
07/25/24 14:39
07/25/24 14:39
Vital Signs
Temp: 36.4 C
Pulse: 89
Blood pressure: 128/100
Initial and Last Documented VS:
Initial Vital Signs
Resp BP Pulse Ox
20 86/62 94
07/25/24 14:14 07/25/24 14:14 07/25/24 14:14
Last Documented Vital Signs
Temp Pulse Resp BP Pulse Ox
36.4 C 89 20 128/100 94
07/25/24 17:13 07/25/24 16:23 07/25/24 14:14 07/25/24 16:23 07/25/24 14:14
*Critical Care Note
Total Time (30-74mins, 75-104mins- exclusive of procedures): Not Applicable
ED Attending Note
-
Portions of this chart may have been created with voice recognition software.� Occasional wrong word or��sound alike� substitutions may have occurred due to the inherent limitations of voice recognition software.
Discharge Plan
Departure
Patient Disposition: Admit
Date of Disposition: 07/25/24
Time of Disposition: 17:30
Presentation/result/management discussed w/ accepting MD/DO: Hospitalist
Discharge Problem:
Acute kidney injury
Prescriptions:
No Action
atorvastatin 10 mg Tablet
10 mg PO HS
aspirin 81 mg Tablet,Delayed Release (Dr/Ec)
81 mg PO DAILY
amiodarone 100 mg Tablet
100 mg PO HS
acetaminophen [Tylenol] 325 mg Tablet
650 mg PO TID
polyethylene glycol 3350 [Miralax] 17 gram Powder In Packet
8.5 g PO DAILYPRN PRN (Reason: constipation)
cholecalciferol (vitamin D3) [Vitamin D3] 50 mcg (2,000 unit) Capsule
50 mcg PO DAILY
promethazine 25 mg Tablet
25 mg PO Q6HPRN PRN (Reason: n/v) Qty: 30 0RF
lisinopril 5 mg Tablet
5 mg PO DAILY Qty: 30 0RF
Referrals:
Melissa Navarro PA-C [Family Provider] -
Discharge Date and Time
Print Language: NEPALESE
[2024-07-25] MEDS: NSS 500 IV (14:46)
[2024-07-25 14:57] LABS: % Basophils 0.1 % (0-2); % Eosinophils 0.1 % (0-6); % Immature Granulocytes 1.3 % (0-0.5); % Lymphocytes 7.4 % (20.5-51.1); % Monocytes 6.6 % (1.7-9.3); % Neutrophils 84.5 % (42.2-75.2); Absolute Immature Granulocytes 0.2 10^3/uL (0-0.05); Absolute Lymphocytes 1.1 10^3/uL (1.2-3.4); Absolute Neutrophils 12.8 10^3/uL (1.4-6.5); Hematocrit 39.6 % (37.0-47.0); Hemoglobin 13.4 g/dL (12.0-16.0); Mean Corp Hgb Conc. 33.8 g/dL (33.0-37.0); Mean Corpuscular Hgb 34.1 pg (27.0-31.0); Mean Corpuscular Volume 100.8 fL (81.0-99.0); Mean Platelet Volume 8.5 fL (7.4-10.4); Nucleated Red Blood Cells % 0.3 %; Platelet Count 285 10^3/uL (130-400); Red Blood Cell Count 3.93 10^6/uL (4.20-5.40); Red Cell Dist. Width 12.7 % (11.5-14.5); White Blood Cell Count 15.1 10^3/uL (4.8-10.8)
[2024-07-25 15:11] LABS: AST (SGOT) 32 U/L (14-36); Albumin 3.3 g/dl (3.5-5.0); Alkaline Phosphatase 179 U/L (38-126); Blood Urea Nitrogen 49 mg/dl (7-17); Calcium 9.5 mg/dl (8.4-10.2); Carbon Dioxide 22 mmol/L (22-30); Chloride 99 mmol/L (98-107); Estimated Creatinine Clearance 14 ml/min; Glucose 188 mg/dl (70-99); Magnesium 1.7 mg/dl (1.6-2.3); Potassium 3.7 mmol/L (3.5-5.1); Sodium 138 mmol/L (135-145); Total Bilirubin 1.1 mg/dl (0.2-1.3); Total Protein 5.7 g/dl (6.3-8.2); eGFR 28.67
[2024-07-25 15:27] LABS: ALT (SGPT) 34 U/L (0-35)
[2024-07-25 15:57] LABS: Urine Albumin 1+ (Neg - Trace); Urine Bilirubin Negative (Negative); Urine Character Clear (Clear); Urine Color Yellow; Urine Glucose Negative (Negative); Urine Ketone Negative (Negative); Urine Leukocyte Negative (Negative); Urine Nitrite Negative (Negative); Urine Occult Blood Negative (Negative); Urine Urobilinogen Negative (Neg - 1+)
[2024-07-25 16:13] LABS: Urine Red Blood Cell 0-2 /HPF (0-2)
[2024-07-25 17:14] LABS: Creatine Phosphokinase 128 U/L (30-135)
--- NOTE | 2024-07-25 18:28 | HPS.HSE ---
Family Physician
-
Family Physician: Melissa Navarro
Chief Complaint
-
Weakness
History of Present Illness
Patient is an 89 y/o female past medical history of atrial fibrillation, hypertension, esophageal dysmotility, and recent hospitalization with aspiration pneumonia who presents with weakness and a fall last night. Patient was admitted from 07/19 -
07/23 for aspiration pneumonia for which she received Zosyn and then completed a coarse of Augmentin on 07/24. Patient reports a few days ago she developed diarrhea. She reports 2-3 episodes per day. She reports very poor oral intake since
discharge. She reports feeling very weak and sustained a fall last night. She denies any fevers.
Medical History
Past Medical History
Past Medical History: Reports Other
Additional Past Medical History:
Paroxysmal Atrial Fibrillation
Essential Hypertension
Hyperlipidemia
Esophageal Dysmotility
Dysphagia
GERD
Past Surgical History: Reports None
Social History
Tobacco: Non-smoker
Alcohol: None
Living: With Family
Family History
Family History: Not pertinent
Allergies / Home Medications
Allergies reflects when Allergies were last updated in [facility].
Home Medications with original date entered in [facility]
Allergy/Medication List:
Allergies
Allergy/AdvReac Type Severity Reaction Status Date / Time
levofloxacin [From Levaquin] Allergy Unknown Verified 07/25/24 14:35
Home Medications
amiodarone 100 mg tablet 100 mg PO HS Arrhythmia 06/30/23
aspirin 81 mg tablet,delayed release 81 mg PO DAILY Blood Clot Prevention/Tx 06/30/23
atorvastatin 10 mg tablet 10 mg PO HS High Cholesterol 06/30/23
acetaminophen 325 mg tablet (Tylenol) 650 mg PO TID Pain 07/19/24
cholecalciferol (vitamin D3) 50 mcg (2,000 unit) capsule (Vitamin D3) 50 mcg PO DAILY Supplement 07/19/24
polyethylene glycol 3350 17 gram oral powder packet (Miralax) 8.5 g PO DAILYPRN PRN constipation 07/19/24
lisinopril 5 mg tablet 5 mg PO DAILY #30 tabs 07/23/24
promethazine 25 mg tablet 25 mg PO Q6HPRN PRN n/v #30 tabs 07/23/24
Review of Systems
-
A 12 point ROS was completed and negative except as noted: Yes
Constitutional: Denies Fever
Respiratory: Reports Cough (Unchanged from prior admission); Denies Trouble Breathing
Cardiac: Denies Chest Pain or Palpitations
Abdomen/GI: Reports See HPI
Physical Exam
Vital Signs
Vital Signs
Temp Pulse Resp BP Pulse Ox
97.5 F 89 20 128/100 94
07/25/24 17:13 07/25/24 16:23 07/25/24 14:14 07/25/24 16:23 07/25/24 14:14
Physical Exam
General: No Apparent Distress, Conversant and Cachectic
HEENT: Anicteric, Moist mucous membranes and Oxygen (Nasal Cannula)
Respiratory: Clear and Other (Poor Inspiratory Effort)
Cardiac: S1/S2 and Regular Rhythm
GI: Soft and Non Tender
Rectal: Deferred by Provider
Musculoskeletal: No Clubbing, No Cyanosis and No Edema
Skin: Warm and Dry
Neuro: Awake, Alert, Oriented and Nonfocal/grossly intact
Psych: Calm
Laboratory Results
-
07/25/24 14:39
07/25/24 14:39
Laboratory Results
Total Bilirubin 1.1 mg/dl (0.2-1.3) 07/25/24 14:39
AST 32 U/L (14-36) 07/25/24 14:39
ALT 34 U/L (0-35) 07/25/24 14:39
Alkaline Phosphatase 179 U/L (38-126) H 07/25/24 14:39
Data Reviewed
-
Lab Data: Labs Reviewed by me
Impression/Plan
-
Acute Kidney Injury, likely volume depletion from poor oral intake and diarrhea
-Hold lisinopril
-Continue IVFs
-Recheck labs in AM
Leukocytosis, new compared to 07/20
-Urinalysis without signs of infection
-Chest CT with right lower lobe opacity felt to be atelectasis
-In setting of new diarrhea would hold on further antibiotics pending C Diff testing
Paroxysmal Atrial Fibrillation
-Continue amiodarone
-Patient is not on anticoagulation due to recurrent / severe epistaxis - Continue aspirin
Essential Hypertension
-Hold lisinopril due to ABDI and hypotension
Hyperlipidemia
-Continue atorvastatin
Esophageal Dysmotility / Dysphagia
-Continue pureed diet at patient request
Cachexia / Severe Protein Calorie Malnutrition
-Continue supplements
DVT prop: SCDs
Code Status: Full Code
[2024-07-25] MEDS: MAXIPIME 1000 MG IV (19:08)
[2024-07-25] MEDS: TYLENOL 1000 MG PO (19:10)
--- NOTE | 2024-07-25 19:32 | W.PN.UPDATE ---
Update Note
Progress Note Update
This note serves as an addendum to the H&P by medical staff credentialing coordinator DARSHAN
Jadyn DIETERICK
HPI
89F Just admitted to ( 07/19/24 - 07/23/24) due to aspiration PNA, seen at ER
- weakness and a fall last night
- for recent aspiration pneumonia for which she received Zosyn and then completed a coarse of Augmentin on 07/24.
- few days ago she developed diarrhea 2-3 episodes per day
- associated with very poor oral intake since discharge.
- very weak and sustained a fall last night. S
HX Prx AF, HTN esophageal dysmotility, dysphagia
Reviewed VS:
Vital Signs
Temp Pulse Resp BP Pulse Ox
97.5 F 93 25 118/83 94
07/25/24 17:13 07/25/24 19:01 07/25/24 19:01 07/25/24 18:45 07/25/24 17:15
PE
Gen: Cachectic
HEENT: wearing NC O2
Neck: supple
Lungs: reduced AE
Cor: RRR S1 S2
Abdomen: soft benign
CARDIOTHORACIC ANESTHESIA TECHNICIAN: AAO3, NFND
MS: No Edema
Psych: calm, appropriate, intact insight
07/20/24 07/23/24 07/25/24
06:26 07:10 14:39
WBC 6.8 15.1 H
BUN 28 H 49 H
Creatinine 0.8 1.7 H
Estimated Creat Clear 32 14
eGFR > 60.00 28.67
Albumin 3.3 L
NEG Flu and Covid as of 07/19/24
CT Chest W/o Iv Contrast
- No evidence for pneumothorax. No significant pleural effusion bilaterally. No evidence for pneumothorax.
- Parenchymal opacity within the posterior and inferior aspect of the right lower lobe, most likely atelectasis, increasing from previous examination.
- The upper to mid thoracic esophagus is distended with air and debris, extending to the level of the left mainstem bronchus, similar appearance to prior examination of April 2024. This is probably due to compression of the esophagus.
- Moderate to severe compression fracture involving L1, which appears new from previous examinations. Compression deformity of L2, slightly progressed since lumbar spine radiographs of June 09 2024.
- Moderate to severe compression deformity of T5 which has progressed since previous examination.
- Deformity of the inferior sternal body which appears new since 2023, but appears to be an old fracture with healing.
- Deformity of the anterior cortical margin of the sternal manubrium, with subtle increased density within the adjacent marrow, suspicious for an acute fracture.
- Numerous bilateral rib fractures, most likely subacute.
03/28/23 TTE
LVEF 60-65
Diastolic function is indeterminate.
Normal right ventricular size and systolic function
No significant valvular abnormalities.
No pericardial effusion.
Last hospitalist admission: 07/19/24 - 07/23/24
DC Dx
Right middle lobe pneumonia, probable aspiration
Nausea
QTc prolongation
Esophageal dysmotility
Dysphagia speech clear for regular diet on same admission
Severe protein calorie malnutrition
Labile hypertension
Paroxysmal atrial fibrillation
Hypokalemia
Hypomagnesemia
Gastroesophageal reflux disease
ASSESSMENT & PLAN
Pre renal ABDI due to dehydration, contracted volume due to POOR POS and dirhea plus functioj of ACEI
Borderline Hypotensive
- Hold lisinopril
- c/w NS IVF
- tend BMP in AM
Recent Diarrhea DDX: ABx associated diarrhea( ASIM) vs C Diff associated diarrhea ( CDAD)
- await stool study for C Diff, Cx, Norovirus
- Hold of further ABx
- IVF
Leukocytosis, new compared to 07/20
Afebrile
Recent Rt LL aspiration PNA
- Received IV CFTX and Vanco at ER
- NEG UA
- CTC with right lower lobe opacity felt to be atelectasis
- hold on further antibiotics
- check PCT - if POS, will consider to resume ABX
Paroxysmal AF
- on [employer]OM[employer] CONVERTER amiodarone
- Not on AC due to recurrent / severe epistaxis
- on AUTOM[employer] CONVERTER ASA
Essential HTN
-Hold lisinopril due to ABDI and hypotension
Hyperlipidemia
- on atorvastatin
Esophageal Dysmotility / Dysphagia
-Continue pureed diet at patient request although ST clear for regular diet on last admission
Cachexia / Severe Protein Calorie Malnutrition
- BMI 16
- cont. supplements
DVT Px: SCD
Code: DNR per patient in the presence of MEDICAL OFFICE ASST when hospitalist discussed the code status, Hospitalist communicated with dayan Arambula. Of note: patient is cognitively intact
IP TLM
[2024-07-25] MEDS: VANCOCIN 200 IV (21:38)
[2024-07-25] MEDS: NSS 1000 IV (21:41)
[2024-07-25] MEDS: PACERONE 100 MG PO (22:00)
[2024-07-25] MEDS: LIPITOR 10 MG PO (22:01)
[2024-07-26] VITALS (8 sets, daily range): BP systolic 126–171; BP diastolic 67–99; PULSE 81–84; O2SAT 96; BMI 16.5
[2024-07-26] MEDS: ASPIR LOW (ENTERIC COATED) 81 MG PO (07:55)
[2024-07-26] MEDS: VISBIOME 1 CAP PO (07:55)
[2024-07-26] MEDS: APRESOLINE 5 MG IV ×2 (09:13→19:52)
[2024-07-26] MEDS: NSS 1000 IV (09:51)
[2024-07-26 09:53] LABS: Hematocrit 39.5 % (37.0-47.0); Hemoglobin 13.4 g/dL (12.0-16.0); Mean Corp Hgb Conc. 33.9 g/dL (33.0-37.0); Mean Corpuscular Volume 100.3 fL (81.0-99.0); Mean Platelet Volume 9.3 fL (7.4-10.4); Platelet Count 237 10^3/uL (130-400); Red Blood Cell Count 3.94 10^6/uL (4.20-5.40); Red Cell Dist. Width 12.6 % (11.5-14.5); White Blood Cell Count 13.4 10^3/uL (4.8-10.8)
[2024-07-26 11:27] LABS: Blood Urea Nitrogen 51 mg/dl (7-17); Calcium 8.9 mg/dl (8.4-10.2); Carbon Dioxide 24 mmol/L (22-30); Chloride 106 mmol/L (98-107); Estimated Creatinine Clearance 22 ml/min; Glucose 124 mg/dl (70-99); Magnesium 1.7 mg/dl (1.6-2.3); Potassium 3.6 mmol/L (3.5-5.1); Sodium 139 mmol/L (135-145); eGFR 48.33
[2024-07-26 11:35] LABS: Procalcitonin 0.28 ng/ml (0.0-0.25)
--- NOTE | 2024-07-26 12:10 | CM ---
CM reviewed chart, patient seen bedside with sonRalf, initial assessment completed. Patient resides with son in a two story home, two steps to enter, patient resides on first floor. Patient reports having a walker at home, is currently on O2, does
not wear home O2. Patient reports VN in past (about 12 years ago, unsure agency), SNF in past, [facility]. Patient aware PT recommendations of SNF- patient undecided at this time, may be agreeable to rehab but does want to return to [facility]. Patient would like to think about it. Patient confirms PCP Melissa Navarro [facility], confirms prescription coverage. CM will continue to follow for all discharge planning needs.
Plan; SNF vs home PT, patient undecided regarding SNF and would like to think about it
--- NOTE | 2024-07-26 13:35 | W.PN.HOSP.TC ---
Today's Communication/Plan
-
* IV hydration.
* PT-OT.
* Ensure with food.
Assessment / Plan
Assessment / Plan
Assessment
Patient is an 89 y/o female past medical history of atrial fibrillation, hypertension, esophageal dysmotility, and recent hospitalization with aspiration pneumonia who presents with weakness and a fall last night. Patient was admitted from 07/19 -
07/23 for aspiration pneumonia for which she received Zosyn and then completed a coarse of Augmentin on 07/24. Patient reports a few days ago she developed diarrhea. She reports 2-3 episodes per day. She reports very poor oral intake since
discharge. She reports feeling very weak and sustained a fall last night. She denies any fevers.
Impression and plan
Acute kidney injury
- Likely volume depleted.
- Hold lisinopril
- Continue IVFs
- Recheck labs in AM
Leukocytosis
- Urinalysis without signs of infection
- Chest CT with right lower lobe opacity felt to be atelectasis
- In setting of new diarrhea would hold on further antibiotics pending C Diff testing
Paroxysmal atrial fibrillation
- Continue amiodarone
- Patient is not on anticoagulation due to recurrent / severe epistaxis
- Continue aspirin
Essential Hypertension
- Hold lisinopril due to ABDI and hypotension
Hyperlipidemia
- Continue atorvastatin
Esophageal Dysmotility / Dysphagia
- Continue pureed diet at patient request
Cachexia / Severe Protein Calorie Malnutrition
- Continue supplements
Thromboprophylaxis
- Heparin.
Code status
- Full.
Anticipated Discharge: Within 24 hours
Subjective/Interval History
-
Date of Service: July 26, 2024
Objective Data
-
Labs:
Laboratory Results
07/26/24 07/26/24
09:16 10:46
WBC 13.4 H
Hgb 13.4
Hct 39.5
Plt Count 237
Sodium Cancelled 139
Potassium Cancelled 3.6
Chloride Cancelled 106
Carbon Dioxide Cancelled 24
BUN Cancelled 51 H
Creatinine Cancelled 1.1 H
Glucose Cancelled 124 H
Calcium Cancelled 8.9
Vital Signs:
Vital Signs
Temp Pulse Resp BP Pulse Ox
97.5 F 81 22 150/83 98
07/26/24 11:00 07/26/24 11:00 07/26/24 11:00 07/26/24 11:00 07/26/24 11:00
I&O
07/25/24 07/26/24 07/27/24
06:59 06:59 06:59
Intake Total 840 / 840
Balance 840 / 840
Review of Systems
-
All other systems: Reviewed and negative
Physical Exam
-
General: No Apparent Distress, Comfortable and Cachectic
HEENT: Normocephalic, Atraumatic, Moist Mucous Membranes, Anicteric and No Ptosis
Respiratory: Clear to Auscultation and Non Labored Respirations
Cardiac: Regular Rhythm and S1/S2
GI: Soft, Nontender and Nondistended
Genito-urinary: No Costovertebral Tender
Musculoskeletal: No Clubbing, No Cyanosis and No Edema
Skin: Warm, Dry and IV Access / Catheter Site
Neuro: Awake, Alert and Oriented
Hematologic / Lymphatic: No Lymphadenopathy
Psych: Calm
[2024-07-26] MEDS: TYLENOL 650 MG PO (14:29)
[2024-07-26] MEDS: HEPARIN 5000 UNITS SC (19:57)
[2024-07-26] MEDS: LIPITOR 10 MG PO (21:35)
[2024-07-26] MEDS: PACERONE 100 MG PO (21:35)
[2024-07-27] VITALS (8 sets, daily range): BP systolic 107–193; BP diastolic 69–119
[2024-07-27] MEDS: NSS 1000 IV ×2 (02:46→18:41)
[2024-07-27 09:30] LABS: % Basophils 0.1 % (0-2); % Eosinophils 0.3 % (0-6); % Immature Granulocytes 0.4 % (0-0.5); % Lymphocytes 12.5 % (20.5-51.1); % Neutrophils 76.7 % (42.2-75.2); Absolute Lymphocytes 1.2 10^3/uL (1.2-3.4); Absolute Monocytes 0.9 10^3/uL (0.1-0.6); Hematocrit 37.9 % (37.0-47.0); Hemoglobin 13.4 g/dL (12.0-16.0); Mean Corp Hgb Conc. 35.4 g/dL (33.0-37.0); Mean Corpuscular Hgb 34.8 pg (27.0-31.0); Mean Corpuscular Volume 98.4 fL (81.0-99.0); Mean Platelet Volume 9.3 fL (7.4-10.4); Nucleated Red Blood Cells % 0.2 %; Platelet Count 205 10^3/uL (130-400); Red Blood Cell Count 3.85 10^6/uL (4.20-5.40); Red Cell Dist. Width 12.6 % (11.5-14.5); White Blood Cell Count 9.2 10^3/uL (4.8-10.8)
[2024-07-27 09:41] LABS: Blood Urea Nitrogen 36 mg/dl (7-17); Calcium 8.5 mg/dl (8.4-10.2); Carbon Dioxide 24 mmol/L (22-30); Chloride 111 mmol/L (98-107); Estimated Creatinine Clearance 35 ml/min; Glucose 104 mg/dl (70-99); Potassium 3.3 mmol/L (3.5-5.1); Sodium 142 mmol/L (135-145); eGFR > 60.00
[2024-07-27] MEDS: ASPIR LOW (ENTERIC COATED) 81 MG PO (11:22)
[2024-07-27] MEDS: HEPARIN 5000 UNITS SC ×2 (11:23→21:40)
[2024-07-27] MEDS: VISBIOME 1 CAP PO (11:25)
[2024-07-27] MEDS: FLUSH (NSS) 1 FLUSH IV (11:26)
[2024-07-27] MEDS: APRESOLINE 5 MG IV ×2 (11:28→23:37)
--- NOTE | 2024-07-27 12:38 | W.PN.HOSP.TC ---
Today's Communication/Plan
-
-Potassium replaced
-Follow-up BMP
-loan and credit manager consulted
Assessment / Plan
Assessment / Plan
Assessment
Patient is an 89 y/o female past medical history of atrial fibrillation, hypertension, esophageal dysmotility, and recent hospitalization with aspiration pneumonia who presents with weakness and a fall last night. Patient was admitted from 07/19 -
07/23 for aspiration pneumonia for which she received Zosyn and then completed a coarse of Augmentin on 07/24. Patient reports a few days ago she developed diarrhea. She reports 2-3 episodes per day. She reports very poor oral intake since
discharge. She reports feeling very weak and sustained a fall last night. She denies any fevers.
Impression and plan
Acute kidney injury
-Resolved with IV hydration
- Likely volume depleted.
- Lisinopril can be restarted with SBP>150
- Continue IVFs
-Follow BMP
#Hypokalemia
-K 3.3
-40 mg of potassium was given in the am
-Another 40 mg of potassium scheduled to be given in the pm
# Diarrhea
-No bowel movement since admission
-Symptoms resolved with probiotics
-Continue follow stool frequency
#Leukocytosis
-Resolved WBC in WNL
-Urinalysis without signs of infection
-Chest CT with right lower lobe opacity felt to be atelectasis
- In setting of new diarrhea would hold on further antibiotics pending C Diff testing
Paroxysmal atrial fibrillation
- Continue amiodarone
- Patient is not on anticoagulation due to recurrent / severe epistaxis
- Continue aspirin
Essential Hypertension
-Restarting lisinopril can be considered with SBP>150
Hyperlipidemia
- Continue atorvastatin
Esophageal Dysmotility / Dysphagia
- Continue pureed diet at patient request
Cachexia / Severe Protein Calorie Malnutrition
- Continue supplements
Thromboprophylaxis
- Heparin.
Code status
- Full.
Anticipated Discharge: 24 - 48 hours
Subjective/Interval History
-
Date of Service: July 27, 2024
The patient denies any abdominal pain, chest pain, shortness of breath. She denies any bowel movement since admission.
Objective Data
-
Labs:
Laboratory Results
07/27/24
09:18
WBC 9.2
Hgb 13.4
Hct 37.9
Plt Count 205
Sodium 142
Potassium 3.3 L
Chloride 111 H
Carbon Dioxide 24
BUN 36 H
Creatinine 0.7
Glucose 104 H
Calcium 8.5
Vital Signs:
Vital Signs
Temp Pulse Resp BP Pulse Ox
97.9 F 86 24 183/101 99
07/27/24 11:00 07/27/24 11:00 07/27/24 11:00 07/27/24 11:00 07/27/24 11:00
I&O
07/26/24 07/27/24 07/28/24
06:59 06:59 06:59
Intake Total 840 / 840 1120 / 1120
Balance 840 / 840 1120 / 1120
Review of Systems
-
History Source: Patient
Constitutional: Reports No Symptoms
EENT: Reports No Symptoms Reported
Respiratory: Reports No Symptoms
Cardiac: Reports No Symptoms
Abdomen/GI: Reports No Symptoms
Breast: Reports No Symptoms
Musculoskeletal: Reports Other (Generalized weakness)
Skin: Reports No Symptoms
Neuro: Reports No Symptoms
Physical Exam
-
General: No Apparent Distress, Comfortable and Cachectic
HEENT: Normocephalic and Atraumatic
Respiratory: Clear to Auscultation
Cardiac: Regular Rhythm and S1/S2
GI: Soft, Nontender and Nondistended
Musculoskeletal: No Clubbing, No Cyanosis and No Edema
Skin: Warm, Dry and IV Access / Catheter Site
Neuro: Awake, Alert and Oriented
Psych: Calm
[2024-07-27] MEDS: KCL 40 MEQ PO ×2 (13:05→21:40)
--- NOTE | 2024-07-27 15:11 | CM ---
CM reviewed chart, patient seen bedside, agreeable to referral to [facility] for SNF, patient agrees she cannot return home. Referral placed in [facility], will continue to follow for all discharge planning needs.
Plan; Referral to [facility], will require insurance auth
[2024-07-27] MEDS: TYLENOL 650 MG PO (15:39)
[2024-07-27] MEDS: PACERONE 100 MG PO (21:39)
[2024-07-27] MEDS: LIPITOR 10 MG PO (21:40)
[2024-07-27] MEDS: MORPHINE SULFATE 1 MG IV (22:59)
--- NOTE | 2024-07-27 23:28 | W.PN.UPDATE ---
Update Note
Progress Note Update
RN notified FLIGHT INSPECTOR, patient tachypneic, RR 36, oxygen level 96% 2l, requesting breathing treatment. patient seen and evaluated. States Shortness of breath, unsure when it started, also has chest tightness which is not new. 97.4 BP 170'/100's HR 83, 97%
30. lungs diminished with faint wheezes upper lobes and rales lower lobes b/l, +BS 4quad, non tender. no edema. will check Covid, flu, chest xray, labs now. Morphine 1mg pain and shortness of breath, duonebx1 for wheezes. stated feeling nausea after
PO meds. IV Benadryl given without any relief, Tigan Im ordered and given with relief. NPO, IVF
EKG with abnormalities will order Troponin
Patient reports feeling better at present.
VS stable
[2024-07-27] MEDS: DUONEB 3 ML INH (23:35)
[2024-07-27] MEDS: BENADRYL 6.25 MG IV (23:42)
[2024-07-27 23:48] LABS: Hematocrit 38.5 % (37.0-47.0); Hemoglobin 13.4 g/dL (12.0-16.0); Mean Corp Hgb Conc. 34.8 g/dL (33.0-37.0); Mean Corpuscular Hgb 34.1 pg (27.0-31.0); Mean Platelet Volume 9.1 fL (7.4-10.4); Platelet Count 241 10^3/uL (130-400); Red Blood Cell Count 3.93 10^6/uL (4.20-5.40); Red Cell Dist. Width 12.6 % (11.5-14.5); White Blood Cell Count 11.4 10^3/uL (4.8-10.8)
[2024-07-27 23:58] LABS: Magnesium 1.7 mg/dl (1.6-2.3)
[2024-07-28 00:04] LABS: COVID-19 Antigen Negative (Negative)
[2024-07-28 00:06] LABS: Blood Urea Nitrogen 34 mg/dl (7-17); Calcium 8.9 mg/dl (8.4-10.2); Carbon Dioxide 22 mmol/L (22-30); Chloride 111 mmol/L (98-107); Estimated Creatinine Clearance 35 ml/min; Glucose 121 mg/dl (70-99); Potassium 3.6 mmol/L (3.5-5.1); Sodium 144 mmol/L (135-145); eGFR > 60.00
[2024-07-28] MEDS: TIGAN 200 MG IM (02:20)
[2024-07-28] MEDS: MELATONIN 5 MG PO (02:20)
[2024-07-28 03:45] VITALS: BP 131/90
--- NOTE | 2024-07-28 04:23 | DOWNTIME ---
There was a CM [employer] Client Clinical Admissions Manager Downtime on 07/28/2024 from 0100 to 07/29/2023 at 0420 . Downtime documentation of patient's care, including medication administrations, has been reconciled in the electronic record per guidelines. Refer to the
patient's paper chart under the miscellaneous tab to see printed paper medication records and downtime forms.
--- NOTE | 2024-07-28 05:02 | PTCARENOTE ---
Addendum entered by Julissa Kyle RN 07/28/24 05:38:
[facility] SPECIALIST ordered 0600 Troponin to AM labs.
Original Note:
Patient restless throughout this shift> c/o difficulty breathing, visibly tachypneic but maintaining pox 93-96% on 3-4LNC, chest tightness (present since admission and noted on MD reports), pain throughout back and left ribs. Patient maintained on
aspiration precautions. Patient able to swallow one pill at a time in applesauce. Initially pt had no c/o with medications, but shortly after developed indigestion and spit up (thick- clear) phlegm. [facility] notified and came to assess patient. Labs
ordered along with FLU/COVID swab (pending) and portable CR Chest (displayed small bilateral pleural effusions, new since previous radiographs). EKG> NSR, ST & T wave abnormality, consider inferolateral ischemia. WBC elevated 11.4 (from 9.2). Pt
placed NPO. At 2259, Morphine 1mg IV ordered and administered for pt's c/o respiratory distress and pain. Duoneb administered. Additionally,
BP elevated 160-170/110, HR 80s-100s, afebrile. At 2337, PRN Hydralazine administered> BP 132/83. At 2342, IV Benadryl ordered and administered for nausea but pt stated no relief; Tigan 200mg IM ordered and administered.
Patient eventually settled down and was given complete full hygiene care. Call doty within reach.
[2024-07-28 06:30] LABS: Hematocrit 37.8 % (37.0-47.0); Mean Corp Hgb Conc. 34.4 g/dL (33.0-37.0); Mean Corpuscular Hgb 34.3 pg (27.0-31.0); Mean Corpuscular Volume 99.7 fL (81.0-99.0); Mean Platelet Volume 9.5 fL (7.4-10.4); Platelet Count 240 10^3/uL (130-400); Red Blood Cell Count 3.79 10^6/uL (4.20-5.40); Red Cell Dist. Width 12.7 % (11.5-14.5); White Blood Cell Count 10.7 10^3/uL (4.8-10.8)
[2024-07-28 06:50] LABS: Troponin I 0.051 ng/ml
[2024-07-28 06:51] LABS: ALT (SGPT) 27 U/L (0-35); AST (SGOT) 30 U/L (14-36); Albumin 2.9 g/dl (3.5-5.0); Alkaline Phosphatase 188 U/L (38-126); Blood Urea Nitrogen 35 mg/dl (7-17); Calcium 9.2 mg/dl (8.4-10.2); Carbon Dioxide 24 mmol/L (22-30); Chloride 114 mmol/L (98-107); Estimated Creatinine Clearance 30 ml/min; Glucose 148 mg/dl (70-99); Potassium 4.5 mmol/L (3.5-5.1); Sodium 145 mmol/L (135-145); Total Protein 5.5 g/dl (6.3-8.2); eGFR > 60.00
--- NOTE | 2024-07-28 06:52 | PTCARENOTE ---
House DIRECTOR OF ADULT EPILEPSY notified of Trop 0.051. No new orders at this time.
[2024-07-28 07:00] VITALS: BP 133/94
--- NOTE | 2024-07-28 09:28 | PTOTSP ---
Dysphagia Evaluation
Patient presents w/ signs concerning for oral and pharyngoesophageal dysphagia likely acute on chronic (i.e., admitted w/ weakness s/p fall, recent PNA; esophageal dysmotility, dysphagia, GERD). Patient failed 3 oz swallow and would benefit from
video swallow study to further assess swallow function given concern for aspiration event last night and recent PNA.
Recommend:
1. NPO
2. Sips of thin water as part of aspiration risk hydration protocol
3. Medications in puree
4. Video swallow study
5. Oral care 3x daily
[2024-07-28] MEDS: VISBIOME 1 CAP PO (09:43)
[2024-07-28] MEDS: ASPIR LOW (ENTERIC COATED) 81 MG PO (09:43)
[2024-07-28] MEDS: HEPARIN 5000 UNITS SC ×2 (09:44→19:46)
--- NOTE | 2024-07-28 10:51 | W.PN.HOSP.TC ---
Today's Communication/Plan
-
* VSE.
* Aspiration precautions.
* Duonebs as needed.
Assessment / Plan
Assessment / Plan
Assessment
Patient is an 89 y/o female past medical history of atrial fibrillation, hypertension, esophageal dysmotility, and recent hospitalization with aspiration pneumonia who presents with weakness and a fall last night. Patient was admitted from 07/19 -
07/23 for aspiration pneumonia for which she received Zosyn and then completed a coarse of Augmentin on 07/24. Patient reports a few days ago she developed diarrhea. She reports 2-3 episodes per day. She reports very poor oral intake since
discharge. She reports feeling very weak and sustained a fall last night. She denies any fevers.
Impression and plan
Acute kidney injury
- Resolved with IV hydration
- Likely volume depleted.
- Lisinopril can be restarted with SBP>150
- Continue IVFs
-Follow BMP
Troponin elevation
-Unclear etiology.
-Trend to peak
-Possibly from the hypoxic episode
Aspiration risk
-CLOUD SYSTEMS ARCHITECT evaluation today; recommending VSE.
-Possibly contributed to the episode overnight.
-Duonebs as needed.
#Hypokalemia
- Replete as needed
# Diarrhea
-No bowel movement since admission
-Symptoms resolved with probiotics
-Continue follow stool frequency
#Leukocytosis
-Resolved WBC in WNL
-Urinalysis without signs of infection
-Chest CT with right lower lobe opacity felt to be atelectasis
- In setting of new diarrhea would hold on further antibiotics pending C Diff testing
Paroxysmal atrial fibrillation
- Continue amiodarone
- Patient is not on anticoagulation due to recurrent / severe epistaxis
- Continue aspirin
Essential Hypertension
-Restarting lisinopril can be considered with SBP>150
Hyperlipidemia
- Continue atorvastatin
Esophageal Dysmotility / Dysphagia
- Continue pureed diet at patient request
Cachexia / Severe Protein Calorie Malnutrition
- Continue supplements
Thromboprophylaxis
- Heparin.
Code status
- Full.
Anticipated Discharge: 24 - 48 hours
Subjective/Interval History
-
Date of Service: July 28, 2024
Had a hypoxic episode overnight. Stable this morning.
Objective Data
-
Labs:
Laboratory Results
07/27/24 07/28/24
23:34 05:52
WBC 11.4 H 10.7
Hgb 13.4 13.0
Hct 38.5 37.8
Plt Count 241 240
Sodium 144 145
Potassium 3.6 4.5
Chloride 111 H 114 H
Carbon Dioxide 22 24
BUN 34 H 35 H
Creatinine 0.7 0.8
Glucose 121 H 148 H
Calcium 8.9 9.2
Total Bilirubin 1.0
AST 30
ALT 27
Alkaline Phosphatase 188 H
Vital Signs:
Vital Signs
Temp Pulse Resp BP Pulse Ox
97.6 F 104 17 133/94 97
07/28/24 07:00 07/28/24 07:00 07/28/24 07:00 07/28/24 07:00 07/28/24 07:00
I&O
07/27/24 07/28/24 07/29/24
06:59 06:59 06:59
Intake Total 1119 50 / 50
Output Total 100 / 100
Balance 1120 / 1119 -50 / -50
Review of Systems
-
History Source: Patient
Constitutional: Reports No Symptoms
EENT: Reports No Symptoms Reported
Respiratory: Reports No Symptoms
Cardiac: Reports No Symptoms
Abdomen/GI: Reports No Symptoms
Breast: Reports No Symptoms
Musculoskeletal: Reports Other (Generalized weakness)
Skin: Reports No Symptoms
Neuro: Reports No Symptoms
Physical Exam
-
General: No Apparent Distress, Comfortable and Cachectic
HEENT: Normocephalic and Atraumatic
Respiratory: Clear to Auscultation
Cardiac: Regular Rhythm and S1/S2
GI: Soft, Nontender and Nondistended
Musculoskeletal: No Clubbing, No Cyanosis and No Edema
Skin: Warm, Dry and IV Access / Catheter Site
Neuro: Awake, Alert and Oriented
Psych: Calm
[2024-07-28] MEDS: NSS IV ×2 (11:18→12:20)
[2024-07-28 12:29] VITALS: BP 161/112
[2024-07-28 15:00] VITALS: BP 150/98
[2024-07-28 15:39] LABS: Troponin I 0.048 ng/ml
--- NOTE | 2024-07-28 15:39 | PTOTSP ---
Videofluoroscopic swallow study
Summary: Mild-moderate oral and at least moderate-severe pharyngeal dysphagia with aspiration of thin liquids, mildly thick, and moderately thick liquids with primally absent sensory response. Etiology unknown.
Recommendations:
1. NPO until further goals of care discussions. Options include an oral diet understanding aspiration risks (i.e., L4 pureed solids, L0 thin liquids with chin tuck and small single sips. intermittent cough/swallow) vs consideration of non-oral means
2. Medications: crushed in puree if medically cleared
3. Oral care 3-5x daily
4. Dysphagia tx f/u at the acute care level and after D/C pending patient goals of care. Therapy to include education, pharyngeal exercises, and improving cough strength as an airway protection mechanism.
[2024-07-28 20:05] VITALS: BP 142/109
[2024-07-28 20:43] LABS: Troponin I 0.052 ng/ml
[2024-07-28] MEDS: PACERONE 100 MG PO (22:32)
[2024-07-28] MEDS: LIPITOR 10 MG PO (22:32)
[2024-07-28 23:00] VITALS: BP 167/104
[2024-07-29] VITALS (7 sets, daily range): BP systolic 126–182; BP diastolic 91–112; O2SAT 97
[2024-07-29 01:59] LABS: Troponin I 0.043 ng/ml
[2024-07-29] MEDS: MELATONIN PO (04:36)
[2024-07-29] MEDS: HEPARIN 5000 UNITS SC ×2 (07:25→19:27)
[2024-07-29] MEDS: VISBIOME 1 CAP PO (07:25)
[2024-07-29] MEDS: ASPIR LOW (ENTERIC COATED) 81 MG PO (07:25)
[2024-07-29 07:44] LABS: Hematocrit 36.6 % (37.0-47.0); Hemoglobin 12.2 g/dL (12.0-16.0); Mean Corp Hgb Conc. 33.3 g/dL (33.0-37.0); Mean Corpuscular Hgb 34.3 pg (27.0-31.0); Mean Corpuscular Volume 102.8 fL (81.0-99.0); Mean Platelet Volume 9.4 fL (7.4-10.4); Platelet Count 212 10^3/uL (130-400); Red Blood Cell Count 3.56 10^6/uL (4.20-5.40); Red Cell Dist. Width 13.1 % (11.5-14.5); White Blood Cell Count 7.8 10^3/uL (4.8-10.8)
[2024-07-29 08:16] LABS: Blood Urea Nitrogen 43 mg/dl (7-17); Calcium 9.1 mg/dl (8.4-10.2); Carbon Dioxide 25 mmol/L (22-30); Chloride 116 mmol/L (98-107); Estimated Creatinine Clearance 27 ml/min; Glucose 113 mg/dl (70-99); Potassium 4.3 mmol/L (3.5-5.1); Sodium 146 mmol/L (135-145); eGFR > 60.00
--- NOTE | 2024-07-29 10:12 | W.PN.HOSP.TC ---
Today's Communication/Plan
-
* PT-OT.
* Analgesia as needed and anxiolytics.
* Palliative care consult.
Assessment / Plan
Assessment / Plan
Assessment
Patient is an 89 y/o female past medical history of atrial fibrillation, hypertension, esophageal dysmotility, and recent hospitalization with aspiration pneumonia who presents with weakness and a fall last night. Patient was admitted from 07/19 -
07/23 for aspiration pneumonia for which she received Zosyn and then completed a coarse of Augmentin on 07/24. Patient reports a few days ago she developed diarrhea. She reports 2-3 episodes per day. She reports very poor oral intake since
discharge. She reports feeling very weak and sustained a fall last night. She denies any fevers.
Impression and plan
Acute kidney injury
- Resolved with IV hydration
- Likely volume depleted.
- Lisinopril can be restarted with SBP>150
- Continue IVFs
- Follow BMP
Troponin elevation
- Unclear etiology.
- Trend to peak
- Possibly from the hypoxic episode
Aspiration risk
Dysphagia
- PHILOSOPHY INSTRUCTOR evaluation today; recommending VSE.
- Possibly contributed to the episode overnight.
- Duonebs as needed.
- Palliative consult.
Hypokalemia
- Replete as needed
Diarrhea
- No bowel movement since admission
- Symptoms resolved with probiotics
- Continue follow stool frequency
Leukocytosis
- Resolved WBC in WNL
- Urinalysis without signs of infection
- Chest CT with right lower lobe opacity felt to be atelectasis
- In setting of new diarrhea would hold on further antibiotics pending C Diff testing
Paroxysmal atrial fibrillation
- Continue amiodarone
- Patient is not on anticoagulation due to recurrent / severe epistaxis
- Continue aspirin
Essential Hypertension
- Restarting lisinopril can be considered with SBP>150
Hyperlipidemia
- Continue atorvastatin
Esophageal Dysmotility / Dysphagia
- Continue pureed diet at patient request
Cachexia / Severe Protein Calorie Malnutrition
- Continue supplements
Thromboprophylaxis
- Heparin.
Code status
- Full.
Anticipated Discharge: Within 24 hours
Subjective/Interval History
-
Date of Service: July 29, 2024
Stable overnight.
Objective Data
-
Labs:
Laboratory Results
07/29/24
07:07
WBC 7.8
Hgb 12.2
Hct 36.6 L
Plt Count 212
Sodium 146 H
Potassium 4.3
Chloride 116 H
Carbon Dioxide 25
BUN 43 H
Creatinine 0.9
Glucose 113 H
Calcium 9.1
Vital Signs:
Vital Signs
Temp Pulse Resp BP Pulse Ox
97.5 F 73 16 182/104 97
07/29/24 07:00 07/29/24 07:00 07/29/24 07:00 07/29/24 07:00 07/29/24 07:25
I&O
07/28/24 07/29/24 07/30/24
06:59 06:59 06:59
Intake Total 1125 / 1125 290 / 290
Output Total 100 / 100
Balance 1125 / 1125 190 / 190
Review of Systems
-
History Source: Patient
Constitutional: Reports No Symptoms
EENT: Reports No Symptoms Reported
Respiratory: Reports No Symptoms
Cardiac: Reports No Symptoms
Abdomen/GI: Reports No Symptoms
Breast: Reports No Symptoms
Musculoskeletal: Reports Other (Generalized weakness)
Skin: Reports No Symptoms
Neuro: Reports No Symptoms
--- NOTE | 2024-07-29 14:38 | CM ---
CM reviewed chart, patient asleep bedside. Reviewed with Resident, not stable for discharge today. Palliative consult placed. CM will continue to follow for all discharge planning needs. X[facility]it[facility] able to offer patient bed pending bed
availability/day of discharge. CM will continue to follow for all discharge planning needs.
Plan; Palliative care consult, SNF when stable, will need auth
[2024-07-29 14:53] LABS: Troponin I 0.087 ng/ml
--- NOTE | 2024-07-29 16:13 | W.PN.UPDATE ---
Update Note
Progress Note Update
Patient was complaining of increased back pain and expresses worry about dying. Anxious when seen.
Ordered ECG and repeat trops; latter mildly elevated. Will get echo and consult cards due to persistent elevation/now up-trend.
IV ativan prn.
Discussed goals of care briefly. Plan to have a more extensive discussion tomorrow.
[2024-07-29] MEDS: LIPITOR PO ×2 (19:28→20:07)
[2024-07-29] MEDS: ATIVAN PO (19:54)
[2024-07-29] MEDS: PACERONE PO (20:07)
[2024-07-30 00:14] LABS: Troponin I 0.078 ng/ml
[2024-07-30 03:08] VITALS: BP 148/106
[2024-07-30 07:05] VITALS: BP 189/116
[2024-07-30] MEDS: ATIVAN 0.25 MG PO (07:13)
[2024-07-30] MEDS: VISBIOME 1 CAP PO (07:14)
[2024-07-30] MEDS: ASPIR LOW (ENTERIC COATED) 81 MG PO (07:14)
[2024-07-30] MEDS: HEPARIN 5000 UNITS SC (07:14)
[2024-07-30] MEDS: APRESOLINE 5 MG IV (07:30)
[2024-07-30 08:55] LABS: Hematocrit 40.9 % (37.0-47.0); Hemoglobin 13.7 g/dL (12.0-16.0); Mean Corp Hgb Conc. 33.5 g/dL (33.0-37.0); Mean Corpuscular Hgb 34.4 pg (27.0-31.0); Mean Corpuscular Volume 102.8 fL (81.0-99.0); Mean Platelet Volume 9.5 fL (7.4-10.4); Platelet Count 235 10^3/uL (130-400); Red Blood Cell Count 3.98 10^6/uL (4.20-5.40); Red Cell Dist. Width 13.3 % (11.5-14.5); White Blood Cell Count 8.9 10^3/uL (4.8-10.8)
[2024-07-30 09:12] LABS: Blood Urea Nitrogen 44 mg/dl (7-17); Calcium 9.2 mg/dl (8.4-10.2); Carbon Dioxide 22 mmol/L (22-30); Chloride 115 mmol/L (98-107); Estimated Creatinine Clearance 24 ml/min; Glucose 103 mg/dl (70-99); Potassium 4.1 mmol/L (3.5-5.1); Sodium 148 mmol/L (135-145); eGFR 54.19
[2024-07-30] MEDS: MORPHINE 100 IV (10:15)
--- NOTE | 2024-07-30 10:34 | W.PN.HOSP.TC ---
Today's Communication/Plan
-
* Comfort care only.
Assessment / Plan
Assessment / Plan
Assessment
Patient is an 89 y/o female past medical history of atrial fibrillation, hypertension, esophageal dysmotility, and recent hospitalization with aspiration pneumonia who presents with weakness and a fall last night. Patient was admitted from 07/19 -
07/23 for aspiration pneumonia for which she received Zosyn and then completed a coarse of Augmentin on 07/24. Patient reports a few days ago she developed diarrhea. She reports 2-3 episodes per day. She reports very poor oral intake since
discharge. She reports feeling very weak and sustained a fall last night. She denies any fevers.
Impression and plan
Recurrent aspiration
Esophageal dysmotility
Dysphagia and odynophagia
- NECK BAND OPERATOR evaluated; recommended NPO vs pureed food with aspiration risk.
- Continued to experience worsening odynophagia and continued to refuse food and medications.
- Goals of care discussion held with family and patient on 07-29-24; both indicated for a preference of moving towards comfort care.
- Somnolent with shallow breaths on the morning of 07-30-24.
- Called the son and had a long discussion about the very poor prognosis and the invasive procedures this may need (which the patient had explicitly refused yesterday).
- Son would want her to be transitioned to comfort care in accordance with Kemi's wishes.
- Transitioning to comfort care and consult for hospice.
- Palliative consult cancelled as transitioning to comfort care.
Acute kidney injury
- Resolved with IV hydration
- Likely volume depleted.
- Lisinopril can be restarted with SBP>150
- Continue IVFs
- Follow BMP.
Troponin elevation
- Unclear etiology.
- Trend to peak.
- Cardiology consultation cancelled as transitioning to comfort care.
- Possibly from the hypoxic episode.
Hypokalemia
- Replete as needed
Diarrhea
- No bowel movement since admission
- Symptoms resolved with probiotics
- Continue follow stool frequency
Leukocytosis
- Resolved WBC in WNL
- Urinalysis without signs of infection
- Chest CT with right lower lobe opacity felt to be atelectasis
- In setting of new diarrhea would hold on further antibiotics pending C Diff testing
Paroxysmal atrial fibrillation
- Continue amiodarone
- Patient is not on anticoagulation due to recurrent / severe epistaxis
- Continue aspirin
Essential Hypertension
- Restarting lisinopril can be considered with SBP>150
Hyperlipidemia
- Continue atorvastatin
Cachexia / Severe Protein Calorie Malnutrition
- Continue supplements
Thromboprophylaxis
- Heparin.
Code status
- Full.
Anticipated Discharge: 24 - 48 hours
Subjective/Interval History
-
Date of Service: July 30, 2024
More somnolent this morning. Discussed with family - prefer to switch to comfort measures.
Objective Data
-
Labs:
Laboratory Results
07/30/24
08:34
WBC 8.9
Hgb 13.7
Hct 40.9
Plt Count 235
Sodium 148 H
Potassium 4.1
Chloride 115 H
Carbon Dioxide 22
BUN 44 H
Creatinine 1.0
Glucose 103 H
Calcium 9.2
Vital Signs:
Vital Signs
Temp Pulse Resp BP Pulse Ox
97.8 F 115 24 189/110 95
07/30/24 07:05 07/30/24 07:30 07/30/24 07:05 07/30/24 07:30 07/30/24 07:25
I&O
07/29/24 07/30/24 07/31/24
06:59 06:59 06:59
Intake Total 290 / 290
Output Total 100 / 100
Balance 190 / 190
Review of Systems
-
Unable to obtain full review of systems at this time due to: Acuity
Physical Exam
-
General: No Apparent Distress, Comfortable and Cachectic
HEENT: Normocephalic, Atraumatic, Moist Mucous Membranes and Anicteric
Respiratory: Clear to Auscultation and Non Labored Respirations
Cardiac: Regular Rhythm and S1/S2
GI: Soft, Nontender and Nondistended
Genito-urinary: No Costovertebral Tender
Musculoskeletal: No Clubbing, No Cyanosis and No Edema
Skin: Warm, Dry and IV Access / Catheter Site
Neuro: Negative Awake
Psych: Calm
--- NOTE | 2024-07-30 12:15 | CM ---
CM reviewed chart, consult received for hospice, patient currently on comfort care. Phone call to patients son, Ralf, agreeable to referral to Hospice. Son very emotional, support provided. Referral placed in [facility], referral to [facility] with
Hospice. CM will continue to follow for all discharge planning needs.
Plan; Hospice referral placed
--- NOTE | 2024-07-30 13:04 | HOSPNOTE ---
Addendum entered by Cely Nettles RN 07/30/24 13:15:
Dr. Linares is going to speak to the son in regards to moving patient to [address] [place] [address]. Bed requested on [address]. Hospice will follow over the weekend
Original Note:
Hospice referral received. Called and spoke to son Ralf. He is very upset and tearful. He feels that his moms has been suffering in pain and does not understand why she has to be like that. I attempted to explain comfort measures and hospice and how
we would focus on her comfort. He stated that is what is already being done. I explained how hospice is specialized in this. He understands and would be agreeable but he is not able to come back to the hospital before Friday. He wishes to speak to
his brother and sister as well and plans to return to the hospital on Friday with at least his brother. I offered to move patient to [address] [place] [address] where the nurses are experienced but he did not want to talk about that before Friday as well. I updated CM
and resident with this information. Hospice will continue to follow over the weekend.
[2024-07-30 15:38] VITALS: BP 147/90
[2024-07-30] MEDS: ATIVAN 0.25 MG IV (21:56)
[2024-07-30] MEDS: NSS (PRESERVATIVE FREE) 0.125 ML IV (21:57)
[2024-07-30] MEDS: ROBINUL 0.2 MG IV (21:58)
[2024-07-30 22:55] VITALS: BP 135/58
[2024-07-31] MEDS: MORPHINE SULFATE 2 MG IV ×6 (00:13→02:40)
[2024-07-31] MEDS: ROBINUL 0.2 MG IV (05:52)
[2024-07-31 07:17] VITALS: BP 67/34
--- NOTE | 2024-07-31 12:37 | W.PN.HOSP.TC ---
Today's Communication/Plan
-
Comfort medication
Assessment / Plan
Assessment / Plan
Assessment
Patient is an 89 y/o female past medical history of atrial fibrillation, hypertension, esophageal dysmotility, and recent hospitalization with aspiration pneumonia who presents with weakness and a fall last night. Patient was admitted from 07/19 -
07/23 for aspiration pneumonia for which she received Zosyn and then completed a coarse of Augmentin on 07/24. Patient reports a few days ago she developed diarrhea. She reports 2-3 episodes per day. She reports very poor oral intake since
discharge. She reports feeling very weak and sustained a fall last night. She denies any fevers.
Impression and plan
Recurrent aspiration
Esophageal dysmotility
Dysphagia and odynophagia
- EXTRAS CASTING DIRECTOR evaluated; recommended NPO vs pureed food with aspiration risk.
- Continued to experience worsening odynophagia and continued to refuse food and medications.
- Goals of care discussion held with family and patient on 07-29-24; both indicated for a preference of moving towards comfort care.
- Somnolent with shallow breaths on the morning of 07-30-24.
- Called the son and had a long discussion about the very poor prognosis and the invasive procedures this may need (which the patient had explicitly refused yesterday).
- Son would want her to be transitioned to comfort care in accordance with Kemi's wishes.
- Transitioned to comfort care and on morphine drip
Acute kidney injury
- Resolved with IV hydration
- Likely volume depleted.
- Lisinopril can be restarted with SBP>150
- Continue IVFs
- Follow BMP.
Troponin elevation
- Unclear etiology.
- Trend to peak.
- Cardiology consultation cancelled as transitioning to comfort care.
- Possibly from the hypoxic episode.
Hypokalemia
- Replete as needed
Diarrhea
- No bowel movement since admission
- Symptoms resolved with probiotics
- Continue follow stool frequency
Leukocytosis
- Resolved WBC in WNL
- Urinalysis without signs of infection
- Chest CT with right lower lobe opacity felt to be atelectasis
- In setting of new diarrhea would hold on further antibiotics pending C Diff testing
Paroxysmal atrial fibrillation
- Continue amiodarone
- Patient is not on anticoagulation due to recurrent / severe epistaxis
- Continue aspirin
Essential Hypertension
- Restarting lisinopril can be considered with SBP>150
Hyperlipidemia
- Continue atorvastatin
Cachexia / Severe Protein Calorie Malnutrition
- Continue supplements
#Thromboprophylaxis: Heparin
#Code status: DNR
#Disposition: Pending, may need to pursue OP facility if she survives the weekend
Anticipated Discharge: 24 - 48 hours
Subjective/Interval History
-
Date of Service: July 31, 2024
Seen and examined at the bedside. Now on comfort measures. Blood pressure low this morning on morphine
Objective Data
-
Vital Signs:
Vital Signs
Temp Pulse Resp BP Pulse Ox
92.0 F L 91 17 67/34 81
07/31/24 07:17 07/31/24 07:17 07/31/24 07:17 07/31/24 07:17 07/31/24 07:17
I&O
07/30/24 07/31/24 08/01/24
06:59 06:59 06:59
Intake Total
Balance
Review of Systems
-
Unable to obtain full review of systems at this time due to: Acuity
Physical Exam
-
General: Well Developed, Comfortable and Cachectic
HEENT: Normocephalic, Atraumatic and Moist Mucous Membranes
Respiratory: Clear to Auscultation and Non Labored Respirations
Cardiac: Regular Rhythm, S1/S2 and Tachycardic
GI: Soft, Nontender, Nondistended and Normal Bowel Sounds
Musculoskeletal: No Clubbing, No Cyanosis and No Edema
Skin: Warm and Dry
Neuro: Sedated
Psych: Calm
[2024-07-31] MEDS: MORPHINE 100 IV (17:53)
[2024-07-31 20:04] VITALS: BP 81/53
[2024-08-01 07:35] VITALS: BP 108/86
--- NOTE | 2024-08-01 11:28 | W.PN.HOSP.TC ---
Today's Communication/Plan
-
Comfort measures
Assessment / Plan
Assessment / Plan
Assessment
Patient is an 89 y/o female past medical history of atrial fibrillation, hypertension, esophageal dysmotility, and recent hospitalization with aspiration pneumonia who presents with weakness and a fall last night. Patient was admitted from 07/19 -
07/23 for aspiration pneumonia for which she received Zosyn and then completed a coarse of Augmentin on 07/24. Patient reports a few days ago she developed diarrhea. She reports 2-3 episodes per day. She reports very poor oral intake since
discharge. She reports feeling very weak and sustained a fall last night. She denies any fevers.
Impression and plan
Recurrent aspiration
Esophageal dysmotility
Dysphagia and odynophagia
- PIPE CLEANER evaluated; recommended NPO vs pureed food with aspiration risk.
- Continued to experience worsening odynophagia and continued to refuse food and medications.
- Goals of care discussion held with family and patient on 07-29-24; both indicated for a preference of moving towards comfort care.
- Somnolent with shallow breaths on the morning of 07-30-24.
- Called the son and had a long discussion about the very poor prognosis and the invasive procedures this may need (which the patient had explicitly refused yesterday).
- Son would want her to be transitioned to comfort care in accordance with Kemi's wishes.
- Transitioned to comfort care and on morphine drip
Acute kidney injury
- Resolved with IV hydration
- Likely volume depleted.
- Lisinopril can be restarted with SBP>150
- Continue IVFs
- Follow BMP.
Troponin elevation
- Unclear etiology.
- Trend to peak.
- Cardiology consultation cancelled as transitioning to comfort care.
- Possibly from the hypoxic episode.
Hypokalemia
- Replete as needed
Diarrhea
- No bowel movement since admission
- Symptoms resolved with probiotics
- Continue follow stool frequency
Leukocytosis
- Resolved WBC in WNL
- Urinalysis without signs of infection
- Chest CT with right lower lobe opacity felt to be atelectasis
- In setting of new diarrhea would hold on further antibiotics pending C Diff testing
Paroxysmal atrial fibrillation
- Continue amiodarone
- Patient is not on anticoagulation due to recurrent / severe epistaxis
- Continue aspirin
Essential Hypertension
- Restarting lisinopril can be considered with SBP>150
Hyperlipidemia
- Continue atorvastatin
Cachexia / Severe Protein Calorie Malnutrition
- Continue supplements
#Thromboprophylaxis: Heparin
#Code status: DNR
#Disposition: Pending, may need to pursue OP facility if she survives the weekend
Anticipated Discharge: 24 - 48 hours
Subjective/Interval History
-
Date of Service: August 01, 2024
Seen and examined at the bedside. No acute events overnight. Comfortable in the room on morphine drip. Family at bedside updated
Objective Data
-
Vital Signs:
Vital Signs
Temp Pulse Resp BP Pulse Ox
97.4 F 77 16 108/86 89
08/01/24 07:35 08/01/24 07:35 08/01/24 07:35 08/01/24 07:35 08/01/24 07:35
I&O
07/31/24 08/01/24 08/02/24
06:59 06:59 06:59
Intake Total
Balance
Review of Systems
-
History Source: Patient
All other systems: Reviewed and negative
Physical Exam
-
General: Comfortable, Appears Chronically Ill and Cachectic
HEENT: Normocephalic and Atraumatic
Respiratory: Clear to Auscultation and Non Labored Respirations
Cardiac: Regular Rhythm and S1/S2; Negative Murmur
GI: Soft, Nontender, Nondistended and Normal Bowel Sounds
Musculoskeletal: No Clubbing, No Cyanosis and No Edema
Neuro: Sedated and Nonfocal/Grossly Intact
[2024-08-01] MEDS: MORPHINE SULFATE 4 MG IV ×3 (12:25→14:10)
[2024-08-01] MEDS: ROBINUL 0.2 MG IV (14:45)
[2024-08-01] MEDS: MORPHINE SULFATE 6 MG IV (14:45)
[2024-08-01] MEDS: MORPHINE 100 IV (17:10)
[2024-08-01 23:00] VITALS: BP 64/37
[2024-08-02 07:17] VITALS: BP 70/48
--- NOTE | 2024-08-02 08:46 | W.PN.HOSP.TC ---
Today's Communication/Plan
-
* Continue comfort measures.
Assessment / Plan
Assessment / Plan
Assessment
Patient is an 89 y/o female past medical history of atrial fibrillation, hypertension, esophageal dysmotility, and recent hospitalization with aspiration pneumonia who presents with weakness and a fall last night. Patient was admitted from 07/19 -
07/23 for aspiration pneumonia for which she received Zosyn and then completed a coarse of Augmentin on 07/24. Patient reports a few days ago she developed diarrhea. She reports 2-3 episodes per day. She reports very poor oral intake since
discharge. She reports feeling very weak and sustained a fall last night. She denies any fevers.
Impression and plan
Recurrent aspiration
Esophageal dysmotility
Dysphagia and odynophagia
- EMERGENCY ROOM DOCTOR evaluated; recommended NPO vs pureed food with aspiration risk.
- Continued to experience worsening odynophagia and continued to refuse food and medications.
- Goals of care discussion held with family and patient on 07-29-24; both indicated for a preference of moving towards comfort care.
- Somnolent with shallow breaths on the morning of 07-30-24.
- Called the son and had a long discussion about the very poor prognosis and the invasive procedures this may need (which the patient had explicitly refused yesterday).
- Son would want her to be transitioned to comfort care in accordance with Kemi's wishes.
- Transitioned to comfort care and on morphine drip.
Acute kidney injury
- Resolved with IV hydration
- Likely volume depleted.
- Lisinopril can be restarted with SBP>150
- Continue IVFs
- Follow BMP.
Troponin elevation
- Unclear etiology.
- Trend to peak.
- Cardiology consultation cancelled as transitioning to comfort care.
- Possibly from the hypoxic episode.
Hypokalemia
- Replete as needed
Diarrhea
- No bowel movement since admission
- Symptoms resolved with probiotics
- Continue follow stool frequency
Leukocytosis
- Resolved WBC in WNL
- Urinalysis without signs of infection
- Chest CT with right lower lobe opacity felt to be atelectasis
- In setting of new diarrhea would hold on further antibiotics pending C Diff testing
Paroxysmal atrial fibrillation
- Continue amiodarone
- Patient is not on anticoagulation due to recurrent / severe epistaxis
- Continue aspirin
Essential Hypertension
- Restarting lisinopril can be considered with SBP>150
Hyperlipidemia
- Continue atorvastatin
Cachexia / Severe Protein Calorie Malnutrition
- Comfort care.
Code status
- DNR-DNI.
Anticipated Discharge: Within 24 hours
Subjective/Interval History
-
Date of Service: August 02, 2024
Comfortable.
Objective Data
-
Vital Signs:
Vital Signs
Temp Pulse Resp BP Pulse Ox
99 F 87 20 70/48 82
08/02/24 07:17 08/02/24 07:17 08/02/24 07:17 08/02/24 07:17 08/02/24 07:17
Review of Systems
-
History Source: Patient
All other systems: Reviewed and negative
Physical Exam
-
General: Comfortable, Appears Chronically Ill and Cachectic
HEENT: Normocephalic and Atraumatic
Respiratory: Clear to Auscultation and Non Labored Respirations
Cardiac: Regular Rhythm and S1/S2; Negative Murmur
GI: Soft, Nontender, Nondistended and Normal Bowel Sounds
Musculoskeletal: No Clubbing, No Cyanosis and No Edema
Neuro: Sedated and Nonfocal/Grossly Intact
[2024-08-02] MEDS: MORPHINE 100 IV (10:21)
--- NOTE | 2024-08-02 12:33 | HOSPNOTE ---
Spoke with Attending and the patient will remain on comfort care. We will follow for emotional support.
--- NOTE | 2024-08-02 12:47 | CM ---
CM reviewed chart, patient remains on comfort care. Hospice following. CM will continue to follow support to family. CM will continue to follow for all discharge planning needs.
Plan; patient remains on comfort care, Hospice following
--- NOTE | 2024-08-02 14:56 | W.PN.DEATH ---
Pronouncement of
-
Called to see patient to pronounce.
No spontaneous heart tones or respirations noted.
Patient not responsive to verbal stimuli.
Patient is pronounced .
Time of : 14:51
Date of : 08/02/24
Cause of : Cachexia secondary to recurrent aspiration and esophageal dysmotility
Family Notified: Yes (Called primary contact, Ralf Valadez)
--- NOTE | 2024-08-02 15:01 | W.DCSUMMARY ---
Discharge Summary
Discharge Data
Date of Admission: 07/25/24
Date of Discharge: 08/02/24
-
Pending Results: No
Hospital Course
Discharge diagnoses
Recurrent aspiration
Esophageal dysmotility
Dysphagia and odynophagia
Cachexia
Severe protein calorie malnutrition
Acute kidney injury
Troponin elevation
Hypokalemia
Chronic diarrhea
Leukocytosis
Paroxysmal atrial fibrillation
Essential hypertension
Hyperlipidemia
Hospital course
Kemi Valadez, 89-year-old female, presented to the hospital with weakness following a fall on 07-25-24. She was found to have an acute kidney injury, which responded to intravenous hydration. She continued to experience difficulties with swallowing
and had recurrent aspiration episodes. Continued to feel progressively weak and refused food and treatments. She was seen by speech language pathology and underwent a swallow study which showed dysphagia and recurrent aspiration. After several goals
of care discussions with the patient and family, decision was made to transition to comfort care and comfort feeding on 07-30-24. The patient passed peacefully on 08-02-24. Family was notified over the phone.
Discharge Plan
-
Patient Disposition:
Date/Time
Date/Time: 08/02/24 14:51
Discharge Date and Time
Print Language: PASHTO
== END 2024-08-02 16:49 | disposition expired | DRG 682 ==
LOC: 4 WEST ACU 18:46
PROVIDERS: Internal Medicine; Nurse Practitioner Gerontology; Physician Assistant Medical; Student in an Organized Health Care Education/Training Program; ADMITTING PHYSICIAN Internal Medicine; ATTENDING PHYSICIAN Hospitalist; EMERGENCY PHYSICIAN Emergency Medicine; FAMILY PHYSICIAN Physician Assistant Medical
DX: N17.9 Acute kidney failure, unspecified (principal); E43 Unspecified severe protein-calorie malnutrition; R64 Cachexia; Z68.1 Body mass index [BMI] 19.9 or less, adult; J98.11 Atelectasis; I5A Non-ischemic myocardial injury (non-traumatic); K22.4 Dyskinesia of esophagus; Z11.52 Encounter for screening for COVID-19; E87.6 Hypokalemia; K52.9 Noninfective gastroenteritis and colitis, unspecified; I48.0 Paroxysmal atrial fibrillation; I10 Essential (primary) hypertension; W19.XXXA Unspecified fall, initial encounter; K21.9 Gastro-esophageal reflux disease without esophagitis; Z87.891 Personal history of nicotine dependence; Z79.82 Long term (current) use of aspirin; I95.9 Hypotension, unspecified; E86.0 Dehydration; Z66 Do not resuscitate; E78.00 Pure hypercholesterolemia, unspecified; D64.9 Anemia, unspecified; D69.6 Thrombocytopenia, unspecified; E11.9 Type 2 diabetes mellitus without complications; L98.2 Febrile neutrophilic dermatosis [Sweet]; Z98.42 Cataract extraction status, left eye; Z98.41 Cataract extraction status, right eye; T17.908A Unspecified foreign body in respiratory tract, part unspecified causing other injury, initial encounter
CPT/HCPCS: 70450; 71045; 71250; 74230; 80048; 80053; 81003; 81015; 82550; 83735; 84145; 84484; 85025; 85027; 87502; 87811; 92526; 92610; 92611; 93005; 93306; 94640; 96360; 97163; 97167; 97530; 97535; 99285